=== PATIENT | female | born 1980 | race Caucasian/White ===

== ENCOUNTER 2018-06-14 23:06 | Emergency (ER) | payer OTHER, SELFPAY ==
[2018-06-14 23:07] VITALS: BP 117/75; PULSE 94; RESP 18; TEMP 36.9; O2SAT 100; BMI 22.2
--- NOTE | 2018-06-14 23:12 | ED.RN ---
NO OLD EKGS IN MUSE.
--- NOTE | 2018-06-14 23:16 | RAD_ITS ---
STUDY: X-RAY CHEST REASON FOR EXAM: Female, 37 years old. Chest pain TECHNIQUE: Single frontal view of the chest. COMPARISON: None. FINDINGS: Lungs are hyperaerated. The lungs are clear and expanded. There is no demonstrated pleural abnormality. Normal size heart. Normal mediastinum and coral. Normal visualized pulmonary arteries. Normal visualized aortic arch and descending thoracic aorta. Normal visualized thoracic spine. Normal visualized ribs, clavicles, and shoulders. There is no demonstrated abnormality of the visualized soft tissue structures of the upper abdomen. RAD/Chest 1 View (Portable) IMPRESSION: Small airways disease. No acute disease. Electronically Signed: Vel Mathis MD at 23:32 EDT , Service support ,
--- NOTE | 2018-06-14 23:16 | EKG12_ITS ---
Test Reason : CP Blood Pressure : / mmHG Vent. Rate : 075 BPM Atrial Rate : 075 BPM P-R Int : 150 ms QRS Dur : 084 ms QT Int : 396 ms P-R-T Axes : 055 076 032 degrees QTc Int : 442 ms Normal sinus rhythm Normal ECG Confirmed by LA BAPTISTE, ROD ([id number]), manuscript editor BLESSING AYALA ([id number]) on 06/16/2018 1:32:17 PM Referred By: TEZ Confirmed By:ROD TOVAR MD
--- NOTE | 2018-06-14 23:17 | ED.VISSUMM ---
- ER Visit Summary Date of Service: 06/14/18 Chief Complaint: Chest pain History of Present Illness: The patient is a 37 F presenting with chest pain. She states this started around 9 PM. Pain is substernal and goes through to her back. She states currently 6 out of 10, at its worst it was 10 out of 10. She states the pain is associated with nausea, vomiting, shortness of breath. She has had a history of heartburn in the past and tried Tums at home which did not help. She denies CAD risk factors. She denies PE/DVT risk factors. She is not a smoker. Physical Examination: Vitals are stable. Patient is afebrile. Alert no acute distress. HEENT exam is unremarkable. Neck is supple. Lungs are clear and equal bilaterally. Heart is regular rate and rhythm. Abdomen is soft nontender nondistended. Extremities are unremarkable. Skin is warm and dry. No focal neurologic deficit. Remainder of exam is unremarkable. Emergency Department Course and Treatment: Patient was given aspirin, morphine, Zofran. EKG is sinus rate is 75 with no acute ischemic changes. Chest x-ray shows no acute process. CBC, chemistries unremarkable. Troponin is negative. On reevaluation, patient is resting comfortably and is pain-free. Repeat troponin is negative. CTA chest shows no definitive evidence of PE or dissection. Patient is advised to follow up with her primary care physician, Dr Banegas. Advised to return to the ED for any worsening complaints. Disposition: Discharge home Impression: Chest pain This note was generated with [employer] dictation software. It may contain incorrect words, spelling, and punctuation that were not noted in review of the chart prior to signing ED Disposition - Plan for ED Patient: Chief Complaint: Chest Pain Referrals: Sole Banegas DO [Primary Care Provider] -
[2018-06-14 23:31] LABS: Absolute Neutrophil Count 4.2 X10^3/uL (2.0-7.7); Basophil# 0.01 X10^3/uL; Basophil% 0.2 % (0-1); Eosinophil# 0.06 X10^3/uL; Hematocrit 38.2 % (37-47); Hemoglobin 12.5 g/dl (12.0-15.0); Lymphocyte % 26.9 % (19-41); Mean Corp Hgb Conc 32.7 g/gl (32-36); Mean Corpuscular Hgb 31.8 pg (27.0-32.0); Mean Corpuscular Volume 97.2 fL (81-99); Mean Platelet Vol. 9.5 fl (6.2-12.0); Monocyte# 0.37 X10^3/uL; Monocyte% 5.9 % (0-10); Neutrophil # 4.16 X10^3/uL (2.7-7.7); Neutrophil % 65.8 % (47-70); Platelet Count 247 K/mm3 (150-450); RBC Distribution Width CV 12.6 % (11.6-14.6); RBC Distribution Width SD 43.9 fl (35.1-43.9); Red Blood Count 3.93 M/mm3 (4.2-5.4); White Blood Count 6.3 K/mm3 (4.4-11.0)
[2018-06-14] MEDS: Aspirin 81 MG TAB.CHEW 324 MG PO (23:38)
[2018-06-14] MEDS: Morphine 4 MG/ML Syringe IV (23:39)
[2018-06-14] MEDS: Ondansetron 4 MG/2 ML Vial IV (23:39)
[2018-06-14 23:40] LABS: POSITIVE COUNT NO; POSITIVE DIFFERENTIAL NO; POSITIVE MORPHOLOGY NO
[2018-06-14 23:45] VITALS: PULSE 81; RESP 12; O2SAT 100
[2018-06-14 23:53] LABS: Anion Gap 5 (5-15); BUN 15 mg/dL (7-18); BUN/Creat Ratio 22.4 RATIO (10-20); Calcium,Total 9.2 mg/dL (8.5-10.1); Chloride 104 mmol/L (98-107); Creatinine, Serum 0.67 mg/dL (0.55-1.02); EST Glomerular Filtration Rate 104 mL/min (>60); Est Glom Filt Rate - Afr Amer 125 mL/min (>60); Estimated Creatinine Clearance 105.53 ml/min; Glucose 115 mg/dL (74-106); Potassium 3.5 mmol/L (3.5-5.1); Sodium Level 139 mmol/L (136-145)
--- NOTE | 2018-06-15 01:28 | CT_ITS ---
STUDY: CTA CHEST REASON FOR EXAM: Female, 37 years old. Chest pain with radiation to the back. RADIATION DOSAGE (If Supplied By Facility): CTDIvol = ( 4.61 ) mGy, DLP = ( 186.31 ) mGycm TECHNIQUE: The examination was performed with the intravenous administration of 75ML ml of Isovue 370 contrast material. Post-processing of the angiographic images was performed, with multiplanar reformation and 3D reconstruction. Individualized dose optimization techniques were used for this CT. COMPARISON: None. FINDINGS: Evaluation of the pulmonary arterial vasculature is limited due to timing of the contrast bolus. There is no definitive central pulmonary embolism. Segmental and subsegmental branches are limited in their evaluation due to admixture of contrast. Thoracic aorta demonstrates no aneurysmal dilatation or dissection. Normal heart and pericardium. Normal mediastinum. Normal hilar regions. Normal visualized trachea and bronchi. The lungs are well expanded. No confluent airspace infiltrate. No pleural effusion or pneumothorax. Normal chest wall structures. Normal osseous structures. Normal visualized upper abdomen. CT/CTA Chest W/WO Contrast IMPRESSION: 1. No definitive evidence of acute pulmonary embolism with evaluation being limited due to timing of the contrast bolus. Electronically Signed: Darren Del Rosario MD at 3:06 EDT Tel , Service support ,
[2018-06-15 01:36] VITALS: BP 106/69; PULSE 75; RESP 16; O2SAT 98
--- NOTE | 2018-06-15 03:09 | ED.DEP ---
ED Disposition - Plan for ED Patient: Chief Complaint: Chest Pain Instructions: ED Chest Pain Atypical Unkn Cause Referrals: Sole Banegas DO [Primary Care Provider] -
[2018-06-15 03:27] VITALS: BP 106/78; PULSE 66; RESP 18; O2SAT 97
== END 2018-06-15 03:28 | disposition home or self-care (01) ==
PROVIDERS: Emergency Provider Emergency Medicine; Family Provider Internal Medicine; PCP Internal Medicine
DX: R07.9 Chest pain, unspecified (principal); R11.2 Nausea with vomiting, unspecified; R06.02 Shortness of breath
CPT/HCPCS: 71045; 71275; 80048; 84484; 85025; 93005; 96374; 96375; 99284; Q9967; A4216; J2405

== ENCOUNTER → 2018-06-23 08:20 | Outpatient (CLI) | payer OTHER, SELFPAY ==
--- NOTE | 2018-06-23 08:24 | US_ITS ---
STUDY: ABDOMINAL ULTRASOUND - RIGHT UPPER QUADRANT REASON FOR VISIT: Female, 37 years old. Right upper quadrant tenderness TECHNIQUE: Ultrasound evaluation of the right upper quadrant was performed with real-time and static caraballo-scale imaging. TECHNICAL QUALITY: Adequate. COMPARISON: None. FINDINGS: Liver: The liver measures 14.4 cm. There is normal echogenicity of the liver. The bile ducts are within normal limits. There is hepatic color flow. The direction of portal flow is hepatopetal. There is no demonstrated mass lesion. Gallbladder: Normal distended gallbladder. The gallbladder wall measures 2.4 mm. There is a positive sonographic Liang's sign. There is no pericholecystic fluid. There are multiple echogenic structures within the gallbladder, consistent with multiple gallstones. Common Bile Duct (C.B.D.): The common bile duct measures 2.9 mm. Pancreas: Normal size of the head, body and tail of the pancreas. There is normal echogenicity of the pancreas. There is no demonstrated pancreatic mass or cyst. Right Kidney: Normal size of the right kidney. The right kidney measures 11.1 x 4.3 x 3.9 cm. Normal renal cortex. The right cortex measures 1.5 cm. There is no demonstrated renal mass or cyst. There is no right hydronephrosis. US/Gallbladder IMPRESSION: Cholelithiasis. A positive Liang's sign was elicited as per cable television technician. There is no pericholecystic fluid or gallbladder wall thickening. Electronically Signed: Mundo Ngo MD at 20:08 EDT , Service support ,
== END ==
PROVIDERS: Family Provider Internal Medicine; PCP Internal Medicine; Visit Provider Internal Medicine
DX: R10.11 Right upper quadrant pain (principal)
CPT/HCPCS: 76705

== ENCOUNTER 2018-08-15 09:45 | Day surgery (SDC) | payer OTHER, SELFPAY ==
[2018-08-15] VITALS (7 sets, daily range): BP systolic 102–112; BP diastolic 65–89; PULSE 56–96; RESP 16–28; TEMP 36.4–37.5; O2SAT 98–100; BMI 22.7
--- NOTE | 2018-08-15 | GALL_PTH ---
PATIENT: YURI LOVE LOC: [facility] [place] U#:[id number] AGE/SX: 37/F ROOM: RE08/15/[address]: Dr. Gaston Desai MD : 1980 BED: DIS: 08/15/2018 SPEC #: [id number] RECD: 08/15/18 15:06 STATUS: SHANE MANUELA #: [id number] SAJI: 08/15/18 00:[address]: Gaston Desai DEPT: SURGICAL PATHOLOGY RECD BY: Darren Parr ENTERED: 08/15/18 15:06 SP TYPE: AKASH CONNOLLY DR: Dr. Sole Banegas DO Tissues: Gallbladder, NOS Procedures: Surgery Specimen Level III HEADER OPERATION: Laparoscopic cholecystectomy PRE-OP DIAGNOSIS: Acute cholecystitis without obstruction; cholelithiasis, right upper quadrant pain TISSUE SUBMITTED: Gallbladder MICROSCOPIC DIAGNOSIS Gallbladder, cholecystectomy: Chronic cholecystitis and cholelithiasis. AM:arley 08/16/18 MICROSCOPIC DESCRIPTION Slides are reviewed. GROSS DESCRIPTION Received is one container labeled with the patient's name and designated gallbladder. The specimen consists of a gallbladder measuring 10 cm in length and up to 4.5 cm in diameter. The external surface is pink-trejo, smooth and glistening for the most part. Focally it is granular, hemorrhagic and contains cautery artifact. The gallbladder contains green-yellow mucoid bile and multiple irregular mulberry, yellowish-green stones measuring in aggregate 2 x 1.5 x 0.5 cm and 0.3 to 0.6 cm in greatest dimension. The mucosa is bile-stained and without any mass lesions. The gallbladder wall measures up to 0.4 cm in thickness. Close to the cystic duct area an ovoid nodule is noted, possible lymph node measuring 1.3 cm in greatest dimension. Legal Service Specialist sections from the gallbladder wall, cystic duct and entire possible lymph node are submitted in one cassette. / SJ:arley 08/15/18 TC:3 CPT: 57049
--- NOTE | 2018-08-15 10:02 | EKG12_ITS ---
Test Reason : PRE-OP Blood Pressure : / mmHG Vent. Rate : 068 BPM Atrial Rate : 068 BPM P-R Int : 146 ms QRS Dur : 084 ms QT Int : 396 ms P-R-T Axes : 048 071 021 degrees QTc Int : 421 ms Sinus rhythm with marked sinus arrhythmia Otherwise normal ECG When compared with ECG of 14-JUN-2018 23:16, No significant change was found Confirmed by TAMIKA BAPTISTE, DIEGO ([id number]), editor farm journal BLESSING AYAAL ([id number]) on 08/18/2018 3:12:09 PM Referred By: Gaston Desai Confirmed By:DIEGO LUNDBERG MD
[2018-08-15 10:11] LABS: Internal QC Validated? YES +Cl - CLEAR BKGD; Pregnancy, Urine Negative Negative
[2018-08-15] MEDS: Cefazolin 2 GM in 0.9% Normal Saline 100 ML IV (12:25)
--- NOTE | 2018-08-15 12:37 | DCINST_ITS ---
Discharge Diet: Light diet - advance as tolerated Discharge Activity: May Not Drive - for 2-3 days or while taking narcotic pain medications., - - Do not drive, work heavy equipment or sign legal documents for 24 hours. May shower in (days): 1 - with the bandage in place. Additional Activity Instructions:: Pain medication may cause nausea. You should typically eat light foods as you take your pain medications. Pain medication may also cause constipation. If this is a problem for you, please discuss with your doctor. Call your doctor if your incision/area has: Continuous Slow Oozing, Sudden Increased Bleeding, Increased Pain/ Swelling, Increased Redness, Foul Smelling Discharge Call your doctor if you observe: Fever of 101 or Higher Suture Line Care: Avoid Pulling/Pushing, Avoid Pinching/Bending Additional Dressing/Incision Instructions:: Leave operative bandaids on for 2 days. When you remove dressing, leave Steri-Strips on until your follow-up appointment, or until the Steri-Strips fall off on their own. Allergies/Adverse Reactions: Allergies No Known Allergies Allergy (Verified 08/01/18 13:05) Medications to take at Discharge desogestrel-e.estradiol 0.15 mg-0.02 mg(21)/e.estrad 0.01 mg(5) tablet 1 tab PO DAILY 07/17/18 Multivitamins,Therapeutic [Multivitamin] 1 tablet PO DAILY 08/01/18 Omeprazole Magnesium [Prilosec Otc] 20 mg PO DAILY 08/01/18 Oxycodone HCl/Acetaminophen [Percocet 5/325] 1 - 2 tab PO Q4H PRN PRN 5 Days #30 tab 08/15/18 The following prescriptions were given: Oxycodone HCl/Acetaminophen [Percocet 5/325] 1 - 2 tab PO Q4H PRN PRN 5 Days #30 tab PRN Reason: Pain Primary Care Physician: Sole Banegas DO [Primary Care Provider] - Test Results: Test results from this visit will be discussed in further detail at your follow- up appointment, if applicable. Please Follow Up With: Gaston Desai MD - Please call [phone] to schedule an appointment. When: 7 days after your surgery.
--- NOTE | 2018-08-15 12:37 | PCM.OPRPT ---
Problem List (1) Calculus of gallbladder with acute cholecystitis without obstruction Status: Acute (2) Right upper quadrant pain Status: Acute Report of Operation Date of Procedure: 08/15/18 Pre-Operative Diagnosis: K80.00 calculus of the gallbladder with acute cholecystitis without obstruction. r10.11 right upper quadrant abdominal pain Post-Operative Diagnosis: Same Surgery/Procedure Performed:: Laparoscopic cholecystectomy Type of Anesthesia:: General Anesthesiologist: Ernesto Gonzalez Estimated Blood Loss (mL): <25CC Fluids Replaced: 1 L LR Description of Procedure: Patient was brought in the operating room placed in the supine position. Under excellent general endotracheal intubation the abdomen was sterilely prepped and draped in the usual fashion. Local was injected infraumbilically and dissection was carried down to the fascia. The fascia was grasped with a [place]. Varies needle was placed inside the abdomen. The abdomen was insufflated to 15 torr. A 10/12 trocar was placed without difficulty. Patient was placed in the head up and rotated to the left position. A subxiphoid #5 trocar was placed, inferior to this another #5 trocar was placed, laterally a #5 trocar was placed. All of these under direct visualization without injury to underlying structures. Fundus of the gallbladder was grasped retracted in the cephalad direction. The patient was placed in the head up and rotated to the left position. Infundibulum was grasped and retracted laterally. I dissected out the cystic duct. Hemoclips were placed proximally and distally the duct was ligated. The cystic artery was identified hemoclips were placed proximally and distally and it was ligated. I deliver the gallbladder from the gallbladder bed with use of electrocautery. I placed the specimen in the specimen bag and delivered through the umbilical port without difficulty. I used electrocautery on the liver bed for good hemostasis. I removed the trochars under direct visualization good hemostasis was noted. I closed the fascia the umbilical port with a [id number] stitch of 0 Vicryl. Skin incisions were closed with subcuticular stitches of 4-0 Monocryl. Steri-Strips were applied. Sterile dressings were applied. The patient tolerated the procedure well. - Admit VTE Documentation VTE Present on Admission: No VTE Mechan Device Prophylaxis: SCD's VTE Pharm Prophylaxis ordered?: No Reason prophylaxis not ordered:: Treatment Not Indicated
[2018-08-15] MEDS: Bupivacaine Mpf 0.5% 30 ML VIAL (13:12)
== END 2018-08-15 16:42 | disposition home or self-care (01) ==
LOC: SDC 09:52 → AC 09:52
PROVIDERS: Family Provider Internal Medicine; PCP Internal Medicine; Visit Provider Surgery
PROC: (CPT 47610; principal; 2018-08-15 12:00)
DX: K80.12 Calculus of gallbladder with acute and chronic cholecystitis without obstruction (principal); K21.9 Gastro-esophageal reflux disease without esophagitis; Z79.899 Other long term (current) drug therapy; Z87.442 Personal history of urinary calculi
CPT/HCPCS: 00790; 47562; 81025; 88304; 93005; J7120; J2405

== ENCOUNTER → 2018-10-04 16:07 | Outpatient (CLI) | payer OTHER, SELFPAY ==
[2018-10-11 19:30] LABS: HPV APTIMA, High Risk Positive (Negative)
== END ==
PROVIDERS: Visit Provider Obstetrics & Gynecology
DX: Z12.4 Encounter for screening for malignant neoplasm of cervix (principal)
CPT/HCPCS: 88175; G0145

== ENCOUNTER → 2018-10-17 12:45 | Outpatient (CLI) | payer OTHER, SELFPAY ==
--- NOTE | 2018-10-17 12:48 | BI_ITS ---
MAMMOGRAPHY - BILATERAL SCREENING REASON FOR EXAM: Female, 38 years old. Routine annual screening examination. PERTINENT HISTORY: Non-contributory. TECHNIQUE: Digital bilateral breast deborah (3D mammographic acquisition) in the CC and MLO projections. 2-D mediolateral oblique (MLO) and craniocaudad (CC) views of both breasts were obtained. CAD: Full Field Digital Mammography with Computer Added Detection was performed. COMPARISON: None. Baseline examination. FINDINGS: Breast Composition: The breasts are extremely dense, which lowers the sensitivity of mammography. There are no dominant masses or suspicious calcifications. No other significant abnormalities are identified. BI/SCREENING MAMM (CAD), BILAT IMPRESSION: Negative screening mammogram. Yearly followup mammogram recommended. (A) ASSESSMENT CATEGORY: BIRADS Category 1: Negative. A letter regarding these results will be sent to the patient by the facility within 30 days. Approximately 10% of breast cancers are not detected by mammography. A normal mammogram should not delay biopsy of a clinically suspicious abnormality. [id number] Electronically Signed: Caleb Ramirez MD at 14:24 EST Tel [phone], Service support ,
--- OUTSIDE RECORDS SUMMARY | 2018-11-29 05:59 | XMS RPT_ITS ---
:1980 Author Organization OHIP Care Team Providers Name Role Phone Jeannette Marvin Attending Unavailable Makenzie, Sole Primary Care Unavailable Makenzie, Sole Attending Unavailable Makenzie, Sole Primary Care Unavailable [place], Gaston Attending Unavailable Makenzie, Soel Referring Unavailable Makenzie, Sole Primary Care Unavailable [place], Gaston Attending Unavailable Makenzie, Sole Primary Care Unavailable [place], Gaston Referring Unavailable Lizzeth Cruz PA-C Attending Unavailable Makenzie, Sole Referring Unavailable Giselle, Gaston Attending Unavailable Adrian Gannon Attending Unavailable Giselle, Gaston Referring Unavailable WeemanJesus Attending Unavailable Weeman, Jesus Attending Unavailable PROBLEMS PROBLEMS DATE TYPE CONDITION / CODE ATTENDING STATUS SOURCE 10/04/2018 Unknown Z12.4 - Encounter Jesus Sosa Active [place] for screening for Pending Sale To [facility] malignant neoplasm [facility] / Repository Z12.4(ICD-10) 08/31/2018 Unknown K80.00 - Calculus of Gaston Desai Active [place] gallbladder with Pending Sale To [facility] acute cholecystitis [facility] without obstruction Repository / K80.00(ICD-10) 08/31/2018 Unknown R10.11 - Right upper Gaston Desai Active [place] quadrant pain / Community R10.11(ICD-10) Hospital Repository 09/15/2018 Unknown Z01.810 - Encounter Adrian Gannon Active [place] for preprocedural Pending Sale To [facility] examination / Repository Z01.810(ICD-10) PROCEDURES PROCEDURES No Procedure Records FoundRESULTS RESULTS SCREENING MAMM (CAD), Observed: 10/17/2018 Status: F Source: [place] BIL[place] 12:49 PM [facility] HOSPITAL REPOSITORY [facility] Imaging Services [address] [place] [address] SCREENING MAMM (CAD), BILAT MR#: [id number] Acct: [id number] Name: LOVEGAURI L Rep #: [id number] : 1980 F 38 From: Caleb Ramirez MD PCP: Care Physician, No Primary Status: REG CLI Study: SCREENING MAMM (CAD), BILAT Date of Exam: 10/17/18 Exam# [id number] Ordering Dr: Jesus Sosa MD MAMMOGRAPHY - BILATERAL SCREENING REASON FOR EXAM: Female, 38 years old. Routine annual screening examination. PERTINENT HISTORY: Non-contributory. TECHNIQUE: Digital bilateral breast deborah (3D mammographic acquisition) in the CC and MLO projections. 2-D mediolateral oblique (MLO) and craniocaudad (CC) views of both breasts were obtained. CAD: Full Field Digital Mammography with Computer Added Detection was performed. COMPARISON: None. Baseline examination. FINDINGS: Breast Composition: The breasts are extremely dense, which lowers the sensitivity of mammography. There are no dominant masses or suspicious calcifications. No other significant abnormalities are identified. BI/SCREENING MAMM (CAD), BILAT IMPRESSION: Negative screening mammogram. Yearly followup mammogram recommended. (A) ASSESSMENT CATEGORY: BIRADS Category 1: Negative. A letter regarding these results will be sent to the patient by the facility within 30 days. Approximately 10% of breast cancers are not detected by mammography. A normal mammogram should not delay biopsy of a clinically suspicious abnormality. [id number] Electronically Signed: Caleb Ramirez MD at 14:24 EST Tel [phone], Service support , CC: No Primary Care Physician; Jesus Sosa MD Thread Separator: Signed PAP IG HPV HR Collected: 10/04/2018 Status: F Source: [place] 3:00 PM [facility] REPOSITORY Order Comment: CYTOLOGY INFORMATION: - CLINICAL INFORMATION: - DATE LMP/MENOPAUSE: 09/25/18 LMP - COLLECTION VIAL: Thin Prep Vial - BIZTALK ARCHITECT SOURCE: CERVICAL/ENDOCERVICAL - COLLECTION TECHNIQUE: BRUSH/SPATULA Specimen Comment: [id number] Specimen Comment: Source.............Cervix;Endocervix Specimen Comment: LMP / Prev Treat...[id number]=[id number] Specimen Comment: No. of containers..01 ThinPrep Vial TYPE CODE TESTS RESULT OUT OF REFERENCE UNITS RANGE LAB L7400.0800 . High DIAGN Comment Result Comment: EPITHELIAL CELL ABNORMALITY. ATYPICAL SQUAMOUS CELLS OF UNDETERMINED SIGNIFICANCE. LAB L7400.0900 . Normal ADEQ Comment Result Comment: Satisfactory for evaluation. Endocervical and/or squamous metaplastic cells (endocervical component) are present. LAB L7400.1400 . Normal PERFORM Comment Result Comment: Cesilia Mccloud, Control Technician (ASCP) LAB L7400.1700 . Normal SIGN Comment Result Comment: Nam Brown MD (Charles), Pathologist LAB L7400.1720 . Normal Path prov. Comment ICD9 Result Comment: R87.610 LAB L7400.2575 . Normal TEST METHOD Comment Result Comment: This liquid based ThinPrep(R) pap test was screened with the use of an image guided system. LAB L7400.2600 . Normal . COMM LAB L7400.2700 . Normal PAPSMR Comment Result Comment: The Pap smear is a screening test designed to aid in the detection of premalignant and malignant conditions of the uterine cervix. It is not a diagnostic procedure and should not be used as the sole means of detecting cervical cancer. Both false-positive and false-negative reports do occur. LAB L7400.2760 Negative High HPV APTIMA, HR Positive Result Comment: This test detects fourteen high-risk HPV types (16/18/31/33/35/39/45/ 51/52/56/58/59/66/68) without differentiation. Performed at: [address] [place] [id number] Advertising Supervisor: Fatimah Glass MD, Phone: [phone] Performed at: [address] [id number] Advertising Supervisor: Crystal Llanes MD, Phone: [phone] Performed at: [address] [id number] Advertising Supervisor: Crystal Llanes MD, Phone: [phone] Performed By: #### L7400.0377 #### [facility] (refer to report for specific site) refer to report for address and phone number SURGERY VISIT REPORT Observed: 08/22/2018 Status: F Source: [place] 12:20 PM [facility] REPOSITORY [facility] 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 Dr. Desai performed a laparoscopic cholecystectomy on 08/15/18. Patient tolerated the procedure well. Pathology demonstrated chronic cholecystitis and cholelithiasis. Patient notes umbilical incisional discomfort. Patient notes nausea in the mornings however this goes away after eating. Patient denies vomiting, fever. She notes bowel habits have returned to normal. She denies taking any pain medication. Objective Details: Abdomen- soft, slightly distended, slightly tender. Incisions c/d/i. No erythema or infection noted. Minimal ecchymosis. Assessment AND Plan Problems 1. Calculus of gallbladder with acute cholecystitis without obstruction K80.00 Plan - Follow-up as needed - May return to work tomorrow - No lifting greater than 35 pounds for 2 weeks Coding Level of Care Code Global Post Op Diagnoses Calculus of gallbladder with acute cholecystitis without obstruction K80.00 08/22/18 1220 <Electronically signed by Lizzeth Cruz PA-C> Date Lizzeth Cruz PA-C Cosigner Signature: Date (if applicable) CC: Sole Banegas DO OPERATIVE REPORT Observed: 08/22/2018 Status: F Source: [place] 11:21 AM [facility] REPOSITORY [facility] Medical Records Department [address] [facility] [place] [address] Operative Report 08/15/18 1237 MR#: [id number] Acct: [id number] Name: LOVEGAURI Kai Rep #: [id number] : 1980 37 From: Gaston Dseai MD PCP: Sole Banegas DO Status: [facility] [place] [facility] Problem List (1) Calculus of gallbladder with acute cholecystitis without obstruction Status: Acute (2) Right upper quadrant pain Status: Acute Report of Operation Date of Procedure: 08/15/18 Pre-Operative Diagnosis: K80.00 calculus of the gallbladder with acute cholecystitis without obstruction. r10.11 right upper quadrant abdominal pain Post-Operative Diagnosis: Same Surgery/Procedure Performed:: Laparoscopic cholecystectomy Type of Anesthesia:: General Anesthesiologist: Ernesto Gonzalez Estimated Blood Loss (mL): <25CC Fluids Replaced: 1 L LR Description of Procedure: Patient was brought in the operating room placed in the supine position. Under excellent general endotracheal intubation the abdomen was sterilely prepped and draped in the usual fashion. Local was injected infraumbilically and dissection was carried down to the fascia. The fascia was grasped with a [place]. Varies needle was placed inside the abdomen. The abdomen was insufflated to 15 torr. A 10/12 trocar was placed without difficulty. Patient was placed in the head up and rotated to the left position. A subxiphoid #5 trocar was placed, inferior to this another #5 trocar was placed, laterally a #5 trocar was placed. All of these under direct visualization without injury to underlying structures. Fundus of the gallbladder was grasped retracted in the cephalad direction. The patient was placed in the head up and rotated to the left position. Infundibulum was grasped and retracted laterally. I dissected out the cystic duct. Hemoclips were placed proximally and distally the duct was ligated. The cystic artery was identified hemoclips were placed proximally and distally and it was ligated. I deliver the gallbladder from the gallbladder bed with use of electrocautery. I placed the specimen in the specimen bag and delivered through the umbilical port without difficulty. I used electrocautery on the liver bed for good hemostasis. I removed the trochars under direct visualization good hemostasis was noted. I closed the fascia the umbilical port with a [id number] stitch of 0 Vicryl. Skin incisions were closed with subcuticular stitches of 4-0 Monocryl. Steri-Strips were applied. Sterile dressings were applied. The patient tolerated the procedure well. - Admit VTE Documentation VTE Present on Admission: No VTE Mechan Device Prophylaxis: SCD's VTE Pharm Prophylaxis ordered?: No Reason prophylaxis not ordered:: Treatment Not Indicated 08/22/18 1121 <Electronically signed by Gaston Desai MD> Date Gaston Desai MD CC: Gaston Desai MD; Sole Banegas DO Signed 12 LEAD ELECTROCARDIOGRAM Observed: 08/18/2018 Status: F Source: [place] 3:12 PM [facility] REPOSITORY [facility] Cardiovascular Services [address] [place] [address] 12 Lead EKG 08/15/18 1013 MR#: [id number] Acct: [id number] Name: GAURI LOVE Rep #: [id number] : 1980 37 From: Adrian Gannon MD Attending Dr: Gaston Desai MD Status: [facility] Ordering Dr: Gaston Desai MD Date: 08/15/18 [place] [facility] Sex: F C Admitted: Test Reason : PRE-OP Blood Pressure : / mmHG Vent. Rate : 068 BPM Atrial Rate : 068 BPM P-R Int : 146 ms QRS Dur : 084 ms QT Int : 396 ms P-R-T Axes : 048 071 021 degrees QTc Int : 421 ms Sinus rhythm with marked sinus arrhythmia Otherwise normal ECG When compared with ECG of 14-JUN-2018 23:16, No significant change was found Confirmed by ADRIAN GANNON MD ([id number]), publishing editor BLESSING AYALA ([id number]) on 08/18/2018 3:12:09 PM Referred By: Gaston Desai Confirmed By:ADRIAN GANNON MD 08/18/18 151 Date Adrian Gannon MD CC: Gaston Desai MD; Sole Banegas DO Signed DISCHARGE INSTRUCTION Observed: 08/15/2018 Status: F Source: [place] 12:37 PM [facility] REPOSITORY [facility] Medical Records Department [address] [place] [address] Instructions for Home/Discharge Instructions 08/15/18 1236 MR#: [id number] Acct: [id number] Name: GAURI LOVE Rep #: [id number] : 1980 37 From: Gaston Desai MD PCP: Sole Banegas DO Status: REG FLC Discharge Diet: Light diet - advance as tolerated Discharge Activity: May Not Drive - for 2-3 days or while taking narcotic pain medications., - - Do not drive, work heavy equipment or sign legal documents for 24 hours. May shower in (days): 1 - with the bandage in place. Additional Activity Instructions:: Pain medication may cause nausea. You should typically eat light foods as you take your pain medications. Pain medication may also cause constipation. If this is a problem for you, please discuss with your doctor. Call your doctor if your incision/area has: Continuous Slow Oozing, Sudden Increased Bleeding, Increased Pain/ Swelling, Increased Redness, Foul Smelling Discharge Call your doctor if you observe: Fever of 101 or Higher Suture Line Care: Avoid Pulling/Pushing, Avoid Pinching/Bending Additional Dressing/Incision Instructions:: Leave operative bandaids on for 2 days. When you remove dressing, leave Steri-Strips on until your follow-up appointment, or until the Steri-Strips fall off on their own. Allergies/Adverse Reactions: Allergies No Known Allergies Allergy (Verified 08/01/18 13:05) Medications to take at Discharge desogestrel-e.estradiol 0.15 mg-0.02 mg(21)/e.estrad 0.01 mg(5) tablet 1 tab PO DAILY 07/17/18 Multivitamins,Therapeutic [Multivitamin] 1 tablet PO DAILY 08/01/18 Omeprazole Magnesium [Prilosec Otc] 20 mg PO DAILY 08/01/18 Oxycodone HCl/Acetaminophen [Percocet 5/325] 1 - 2 tab PO Q4H PRN PRN 5 Days #30 tab 08/15/18 The following prescriptions were given: Oxycodone HCl/Acetaminophen [Percocet 5/325] 1 - 2 tab PO Q4H PRN PRN 5 Days #30 tab PRN Reason: Pain Primary Care Physician: Sole Banegas DO [Primary Care Provider] - Test Results: Test results from this visit will be discussed in further detail at your follow-up appointment, if applicable. Please Follow Up With: Gaston Desai MD - Please call [phone] to schedule an appointment. When: 7 days after your surgery. 08/15/18 1237 <Electronically signed by Gaston Desai MD> Date Gaston Desai MD CC: Sole Banegas DO ,URINE Collected: 08/15/2018 Status: F Source: [place] 10:00 AM [facility] REPOSITORY TYPE CODE TESTS RESULT OUT OF REFERENCE UNITS RANGE LAB L400.8000 Negative Normal HCGUQUAL Negative Result Comment: Very dilute urine specimens, as indicated by a low specific gravity, may not contain escrow representative levels of hCG. If is still suspected, a first morning urine specimen should be collected 48 hours later and tested. Performed By: #### L400.7600 #### [facility] [address] [place], [address] GALLBLADDER Observed: 08/15/2018 Status: F Source: [place] 12:00 AM [facility] REPOSITORY Patient: GAURI LOVE : 1980 (37/F) Acct Num: [id number] Phys: Giselle BAPTISTE,Gaston Unit Num: [id number] [place] [facility] Specimen: [id number] Received: 08/15/18 - 1506 Spec Type: GALLBLADDE TISSUES 1 TISSUES: Gallbladder, NOS GROSS DESCRIPTION Received is one container labeled with the patient's name and designated gallbladder. The specimen consists of a gallbladder measuring 10 cm in length and up to 4.5 cm in diameter. The external surface is pink- trejo, smooth and glistening for the most part. Focally it is granular, hemorrhagic and contains cautery artifact. The gallbladder contains green-yellow mucoid bile and multiple irregular mulberry, yellowish-green stones measuring in aggregate 2 x 1.5 x 0.5 cm and 0.3 to 0.6 cm in greatest dimension. The mucosa is bile- stained and without any mass lesions. The gallbladder wall measures up to 0.4 cm in thickness. Close to the cystic duct area an ovoid nodule is noted, possible lymph node measuring 1.3 cm in greatest dimension. Power Line Lineman sections from the gallbladder wall, cystic duct and entire possible lymph node are submitted in one cassette. / SJ:arley 08/15/18 TC:3 CPT: 32726 HEADER OPERATION: Laparoscopic cholecystectomy PRE-OP DIAGNOSIS: Acute cholecystitis without obstruction; cholelithiasis, right upper quadrant pain TISSUE SUBMITTED: Gallbladder MICROSCOPIC DESCRIPTION Slides are reviewed. MICROSCOPIC DIAGNOSIS Gallbladder, cholecystectomy: Chronic cholecystitis and cholelithiasis. AM:arley 08/16/18 Signed Johnathon Menendez 08/16/18 <signature on file> Performed By: #### PGALL #### [facility] [address] [place], [address] SURGERY VISIT REPORT Observed: 07/17/2018 Status: F Source: [place] 7:46 AM [facility] REPOSITORY [facility] [address] [place] [address] OFFICE VISIT Date of Service: 07/17/18 MR#: [id number] Acct: [id number] Name: GAURI LOVE Rep #: [id number] : 1980 Provider: Gaston Desai MD Age/Sex: 37/F Location: [facility] Status: Signed Intake Vital Signs07/17/18 Height 5 ft 6 in 07/17/18 Weight: 130 lb Intake Visit Reasons: R Upper Quadrant Pain/[facility] 06/23 Electrical Tester Battery Required: No Is patient in pain?: No Allergies No Known Allergies Allergy (Verified 07/17/18 07:36) Medications desogestrel-e.estradiol 0.15 mg-0.02 mg(21)/e.estrad 0.01 mg(5) tablet 1 tab PO DAILY 07/17/18 [History Confirmed 07/17/18] [facility] Medical History Abdominal pain (Acute) Acid reflux (Acute) Cholelithiasis (Acute) Diarrhea (Acute) Nausea (Acute) Surgical History History of tubal ligation (Acute) history corrective eye surgery (Acute) Social History Smoking Status: Never smoker alcohol intake: never substance use type: does not use HPI HPI HPI: GAURI LOVE, is a 37 F who presents to the office today for evaluation for cholelithiasis. Patient states that the end of May she was experiencing some increased heartburn then went into her back and into the chest area. She went to the emergency department and had a cardiac workup which was negative and subsequently followed up with her primary care physician and a gallbladder ultrasound was obtained. This showed a normally distended gallbladder. The gallbladder wall measured 2.4 mm. There was a positive sonographic Liang sign. There was no pericholecystic fluid. There were multiple echogenic structures within the gallbladder consistent with multiple gallstones. The common bile duct measured 2.9 mm in size. She is to remain on a low-fat diet she has been using minutes to help with her reflux which she is unsure had been working appropriately. She presents to my office today for surgical treatment of symptomatic cholelithiasis. ROS General General: Yes weight change and fatigue; no appetite, colon cancer, breast cancer or weakness HEENT HEENT: Yes eye surgery; no difficulty swallowing, eye injury, swollen glands or hoarseness Endo Endocrine: No thyroid disease, diabetes mellitus, thyroid cancer, Hair loss, heat intolerance or cold intolerance Skin Skin: No rash or changing moles Breast Breast: No left breast lump, right breast lump, nipple discharge, breast pain, abnormal mammogram, abnormal US or breast enlargement Musc Musculoskeletal: No back problems, arthritis, rheumatoid arthritis, gout or joint pain Cardio Cardiovascular: No murmur, pacemaker, heart disease, atrial fibrillation, high blood pressure, heart attack, heart stent, palpitations, shortness of breat with exertion or chest pain Psych Psychiatric: No depression, anxiety or hearing voices Resp Respiratory: No shortness of breath, No sleep apnea, No cough, No COPD, No asthma, No emphysema, No wheezing Gastro Gastrointestinal: Yes abdominal pain, Yes nausea or vomiting, Yes diarrhea, No constipation, No blood in stool, Yes acid reflux, Yes hemorrhoids, No ulcers, Yes gallbladder problem, No black,tarry stools Brooks Hematologic: No blood thinners, No blood disorders, No bleeding, No anemia, No blood clots Neuro Neurologic: No system reviewed and no additional complaints, except as docu, No as per HPI, No abnormal walking, No abnormal hearing, No abnormal movements, No abnormal speech, No behavioral changes, No burning sensations, No confusion, No seizure-like activity, No unsteadiness, No dizziness, No localized weakness, No frequent falls, No headache(s), No lack of coordination, No loss of vision, No memory loss, No numbness, No other visual disturbances, No radiating pain, No restless legs, No sensory deficit, No fainting, No tingling, No tremor(s), No weakness, No other Exam Const General: well developed, no acute distress, well hydrated Orientation: oriented to person, oriented to place, oriented to time [facility] Head: normocephalic, atraumatic Ears: external ears normal Mouth: moist mucous membranes Eyes Sclera: sclerae normal Pupils: normal by confrontation Neck Neck: no lymphadenopathy noted Neck mass: No Thyroid: symmetrical, thyroid normal Chest Chest palpation AND inspection: normal inspection of the chest Breast Palpation: No nipple discharge Resp Effort AND Inspection: normal respiratory effort Auscultation: clear to auscultation bilaterally Percussion: percussion normal Cardio Rate: regular rate Rhythm: regular rhythm Heart Sounds: no murmurs GI Palpation: soft, tender, no masses, no hepatosplenomegaly Auscultation: normal bowel sounds Rectal Exam: other Other: Rectal exam deferred. Extrem General: no clubbing, cyanosis or edema, normal to inspection Assessment AND Plan Problems 1. Calculus of gallbladder with acute cholecystitis without obstruction K80.00 2. Abdominal pain, RUQ R10.11 Plan Reviewed the anatomy with the patient and discussed the procedure: laparoscopic cholecystectomy with possible cholangiograms, possible open. Review risks including but not limited to bleeding, infection, hernia, bile leak, retained gallstones requiring another procedure ERCP- Endoscopic Retrograde Cholangiopancreatography, injury to another organ (bile ducts, common bile duct, small bowel, etc.) and conversion to an open procedure. All questions were answered. Coding Level of Care Code Off vis,new,level 3 Diagnoses Calculus of gallbladder with acute cholecystitis without obstruction K80.00 Cholelithiasis location: gallbladder Cholecystitis acuity: acute Abdominal pain, RUQ R10.11 07/17/18 0746 <Electronically signed by Gaston Desai MD> Date Gaston Desai MD Cosigner Signature: Date (if applicable) CC: Sole Banegas DO GALLBLADDER Observed: 06/23/2018 Status: F Source: [place] 8:25 AM [facility] REPOSITORY [facility] Imaging Services [address] [place] [address] Gallbladder MR#: [id number] Acct: [id number] Name: GAURI LOVE Kai Rep #: [id number] : 1980 F 37 From: Mundo Ngo MD PCP: Sole Banegas DO Status: REG CLI Study: Gallbladder Date of Exam: 06/23/18 Exam# [id number] Ordering Dr: Sole Banegas DO STUDY: ABDOMINAL ULTRASOUND - RIGHT UPPER QUADRANT REASON FOR VISIT: Female, 37 years old. Right upper quadrant tenderness TECHNIQUE: Ultrasound evaluation of the right upper quadrant was performed with real-time and static caraballo-scale imaging. TECHNICAL QUALITY: Adequate. COMPARISON: None. FINDINGS: Liver: The liver measures 14.4 cm. There is normal echogenicity of the liver. The bile ducts are within normal limits. There is hepatic color flow. The direction of portal flow is hepatopetal. There is no demonstrated mass lesion. Gallbladder: Normal distended gallbladder. The gallbladder wall measures 2.4 mm. There is a positive sonographic Liang's sign. There is no pericholecystic fluid. There are multiple echogenic structures within the gallbladder, consistent with multiple gallstones. Common Bile Duct (C.B.D.): The common bile duct measures 2.9 mm. Pancreas: Normal size of the head, body and tail of the pancreas. There is normal echogenicity of the pancreas. There is no demonstrated pancreatic mass or cyst. Right Kidney: Normal size of the right kidney. The right kidney measures 11.1 x 4.3 x 3.9 cm. Normal renal cortex. The right cortex measures 1.5 cm. There is no demonstrated renal mass or cyst. There is no right hydronephrosis. US/Gallbladder IMPRESSION: Cholelithiasis. A positive Liang's sign was elicited as per drafting technician. There is no pericholecystic fluid or gallbladder wall thickening. Electronically Signed: Mundo Ngo MD at 20:08 EDT , Service support , CC: Sole Banegas DO Thread Separator: Signed 12 LEAD ELECTROCARDIOGRAM Observed: 06/16/2018 Status: F Source: [place] 1:32 PM [facility] Cardiovascular Services [address] [place] [address] 12 Lead EKG 06/14/186 MR#: [id number] Acct: [id number] Name: GAURI LOVE Rep #: [id number] : 1980 37 From: Mumtaz Tovar MD Attending Dr: Status: DEP ER Ordering Dr: Jeannette Marvin MD Date: 06/14/18 Location: ED Sex: F C Admitted: Test Reason : CP Blood Pressure : / mmHG Vent. Rate : 075 BPM Atrial Rate : 075 BPM P-R Int : 150 ms QRS Dur : 084 ms QT Int : 396 ms P-R-T Axes : 055 076 032 degrees QTc Int : 442 ms Normal sinus rhythm Normal ECG Confirmed by LA BAPTISTE, MUMTAZ ([id number]), publishing editor BLESSING AYALA ([id number]) on 06/16/2018 1:32:17 PM Referred By: TEZ Confirmed By:MUMTAZ TOVAR MD 06/16/18 1332 Date Mumtaz Tovar MD CC: Jeannette Marvin MD; Sole Banegas DO Signed EMERGENCY DEPARTMENT Observed: 06/15/2018 Status: F Source: [place] SUMMARY 3:20 AM [facility] Medical Records Department [address] [place] [address] Emergency Department Summary 06/14/18 2317 MR#: [id number] Acct: [id number] Name: GAURI LOVE Rep #: [id number] : 1980 37 From: Jeannette Marvin MD PCP: Sole Banegas DO Status: REG ER - ER Visit Summary Date of Service: 06/14/18 Chief Complaint: Chest pain History of Present Illness: The patient is a 37 F presenting with chest pain. She states this started around 9 PM. Pain is substernal and goes through to her back. She states currently 6 out of 10, at its worst it was 10 out of 10. She states the pain is associated with nausea, vomiting, shortness of breath. She has had a history of heartburn in the past and tried Tums at home which did not help. She denies CAD risk factors. She denies PE/DVT risk factors. She is not a smoker. Physical Examination: Vitals are stable. Patient is afebrile. Alert no acute distress. HEENT exam is unremarkable. Neck is supple. Lungs are clear and equal bilaterally. Heart is regular rate and rhythm. Abdomen is soft nontender nondistended. Extremities are unremarkable. Skin is warm and dry. No focal neurologic deficit. Remainder of exam is unremarkable. Emergency Department Course and Treatment: Patient was given aspirin, morphine, Zofran. EKG is sinus rate is 75 with no acute ischemic changes. Chest x- ray shows no acute process. CBC, chemistries unremarkable. Troponin is negative. On reevaluation, patient is resting comfortably and is pain-free. Repeat troponin is negative. CTA chest shows no definitive evidence of PE or dissection. Patient is advised to follow up with her primary care physician, Dr Banegas. Advised to return to the ED for any worsening complaints. Disposition: Discharge home Impression: Chest pain This note was generated with [employer] dictation software. It may contain incorrect words, spelling, and punctuation that were not noted in review of the chart prior to signing ED Disposition - Plan for ED Patient: Chief Complaint: Chest Pain Referrals: Sole Banegas, DO [Primary Care Provider] - What to do if you have Problems For any increased pain, shortness of breath, bleeding, nausea or vomiting, chest pain, or any unexpected problems, contact your Primary Care Provider. Call [facility] ([phone]) or report to the closest Emergency Room. Call 911 if necessary. 06/15/18 0320 <Electronically signed by Jeannette Marvin MD> Date Jeannette Marvin MD Cosigner Signature (If Indicated): Date CC: Sole aBnegas DO DISCHARGE INSTRUCTION Observed: 06/15/2018 Status: F Source: [place] 3:09 AM [facility] REPOSITORY [facility] Medical Records Department [address] [place] [address] Discharge Instruction 06/15/18308 MR#: [id number] Acct: [id number] Name: GAURI LOVE Rep #: [id number] : 1980 37 From: Jeannette Marvin MD PCP: Sole Banegas DO Status: REG ER ED Disposition - Plan for ED Patient: Chief Complaint: Chest Pain Instructions: ED Chest Pain Atypical Unkn Cause Referrals: Sole Banegas, [Primary Care Provider] - What to do if you have Problems For any increased pain, shortness of breath, bleeding, nausea or vomiting, chest pain, or any unexpected problems, contact your Primary Care Provider. Call [facility] ([phone]) or report to the closest Emergency Room. Call 911 if necessary. 06/15/18308 <Electronically signed by Jeannette Marvin MD> Date Jeannette Marvin MD Cosigner Signature (If Indicated): Date CC: Sole Banegas DO TROPONIN-I Collected: 06/15/2018 Status: F Source: [place] 2:20 AM [facility] REPOSITORY Order Comment: 'TROP' Serial specimen #1, #2 or #3: 2 TYPE CODE TESTS RESULT OUT OF RANGE REFERENCE UNITS LAB L501.4010 <0.045 ng/mL Normal < 0.015 TROPONIN-I Result Comment: TROPONIN-I EXPECTED VALUES <0.045 Negative 0.045 - 0.590 Consistent with Cardiac Damage > OR = 0.600 Critical Value Not every elevated troponin is indicative of WV. These values should be used with clinical judgement in examining the patient's clinical picture for diagnosis. To establish a diagnosis of WV versus myocardial injury, there must be a demonstrated rise and/or fall in the troponin values, in addition to ischemic symptoms, EKG changes, new regional wall motion abnormality, and/or angiographical evidence. PLEASE NOTE: REFERENCE RANGES EDITED 18 Performed By: #### L501.4010 #### [facility] [address] [place], [address] CTA CHEST W/WO Observed: 06/15/2018 Status: F Source: [place] CONTRAST 1:28 AM [facility] REPOSITORY [facility] Imaging Services [address] [place] [address] CTA Chest W/WO Contrast MR#: [id number] Acct: [id number] Name: GAURI LOVE Rep #: [id number] : 1980 F 37 From: Darren Del Rosario MD PCP: Sole Banegas DO Status: REG ER Study: CTA Chest W/WO Contrast Date of Exam: 06/15/18 Exam# [id number] Ordering Dr: Jeannette Marvin MD STUDY: CTA CHEST REASON FOR EXAM: Female, 37 years old. Chest pain with radiation to the back. RADIATION DOSAGE (If Supplied By Facility): CTDIvol = ( 4.61 ) mGy, DLP = ( 186.31 ) mGycm TECHNIQUE: The examination was performed with the intravenous administration of 75ML ml of Isovue 370 contrast material. Post-processing of the angiographic images was performed, with multiplanar reformation and 3D reconstruction. Individualized dose optimization techniques were used for this CT. COMPARISON: None. FINDINGS: Evaluation of the pulmonary arterial vasculature is limited due to timing of the contrast bolus. There is no definitive central pulmonary embolism. Segmental and subsegmental branches are limited in their evaluation due to admixture of contrast. Thoracic aorta demonstrates no aneurysmal dilatation or dissection. Normal heart and pericardium. Normal mediastinum. Normal hilar regions. Normal visualized trachea and bronchi. The lungs are well expanded. No confluent airspace infiltrate. No pleural effusion or pneumothorax. Normal chest wall structures. Normal osseous structures. Normal visualized upper abdomen. CT/CTA Chest W/WO Contrast IMPRESSION: 1. No definitive evidence of acute pulmonary embolism with evaluation being limited due to timing of the contrast bolus. Electronically Signed: Darren Del Rosario MD at 3:06 EDT Tel , Service support , CC: Jeannette Marvin MD; Sole Banegas DO Thread Separator: Signed CBC W/DIFF, AUTOMATED Collected: 06/14/2018 Status: F Source: [place] 11:20 PM [facility] REPOSITORY TYPE CODE TESTS RESULT OUT OF RANGE REFERENCE UNITS LAB L100.1000 4.4-11.0 K/mm3 Normal WBC 6.3 LAB L100.1200 4.2-5.4 M/mm3 Low RBC 3.93 LAB L100.1300 12.0-15.0 g/dl Normal HGB 12.5 LAB L100.1400 37-47 % Normal HCT 38.2 LAB L100.1500 81-99 fL Normal MCV 97.2 LAB L100.1600 27.0-32.0 pg Normal MCH 31.8 LAB L100.1700 32-36 g/gl Normal MCHC 32.7 LAB L100.1810 11.6-14.6 % Normal RDW CV 12.6 LAB L100.1820 35.1-43.9 fl Normal RDW SD 43.9 LAB L100.1900 150-450 K/mm3 Normal PLT 247 LAB L100.2000 6.2-12.0 fl Normal MPV 9.5 LAB L100.2100 47-70 % Normal NEUT% 65.8 LAB L100.2200 19-41 % Normal LY% 26.9 LAB L100.2300 0-10 % Normal MONO% 5.9 LAB L100.2400 0-5 % Normal EO% 1.0 LAB L100.2500 0-1 % Normal BASO% 0.2 LAB L100.2550 0.0-0.9 % Normal IM GRAN % 0.200 Result Comment: IG% - Immature Granulocytes (promyelocytes, myelocytes and metamyelocytes) > 1% indicates that a LEFT SHIFT is Present. LAB L100.2620 2.0-7.7 X10 3/uL Normal Absolute Neut 4.2 LAB L100.2720 0.83-4.51 X10 3/ul Normal Absolute Lymph 1.70 Performed By: #### L100.0100 #### [facility] [address] [facility] [place], [address] BASIC METABOLIC Collected: 06/14/2018 Status: F Source: [place] PROFILE (BMP) 11:20 PM [facility] REPOSITORY TYPE CODE TESTS RESULT OUT OF RANGE REFERENCE UNITS LAB L501.0100 74-106 mg/dL High GLU 115 Result Comment: Fasting Glucose result from 100 to 125 mg/dL suggests IMPAIRED HOMEOSTASIS per A.D.A. criteria. Please note revised GLUCOSE reference range effective 2017. LAB L501.1000 7-18 mg/dL Normal BUN 15 LAB L501.1100 0.55-1.02 mg/dL Normal CREAT,SERUM 0.67 Result Comment: The validity of the calculated GFR AND GFRAA in patients over 70 years has not been determined. Clinical correlation is essential. LAB L501.1110 >60 mL/min Normal EST GFR 104 Result Comment: Non- GFR Calc LAB L501.1115 >60 mL/min Normal EST GFR - AA 125 Result Comment: GFR Calc LAB L501.1255 ml/min Normal Estimated CRCL 105.53 LAB L501.1300 10-20 RATIO High BUN/CRE 22.4 LAB L501.2200 8.5-10 mg/dL .1 CA Normal 9.2 LAB L501.5300 136-14 mmol/L 5 NA Normal 139 LAB L501.5600 3.5-5. mmol/L 1 K Normal 3.5 LAB L501.5900 98-107 mmol/L CL Normal 104 LAB L501.6100 21.0-3 mmol/L 2.0 CO2 Normal 30.0 LAB L501.6200 5-15 GAP Normal 5 Performed By: #### L500.2500, L501.4010 #### [facility] [address] [facility] [place], [address] TROPONIN-I Collected: 06/14/2018 Status: F Source: [place] 11:20 [facility] REPOSITORY TYPE CODE TESTS RESULT OUT OF RANGE REFERENCE UNITS LAB L501.4010 <0.045 ng/mL Normal < 0.015 TROPONIN-I Result Comment: TROPONIN-I EXPECTED VALUES <0.045 Negative 0.045 - 0.590 Consistent with Cardiac Damage > OR = 0.600 Critical Value Not every elevated troponin is indicative of [place]. These values should be used with clinical judgement in examining the patient's clinical picture for diagnosis. To establish a diagnosis of WV versus myocardial injury, there must be a demonstrated rise and/or fall in the troponin values, in addition to ischemic symptoms, EKG changes, new regional wall motion abnormality, and/or angiographical evidence. PLEASE NOTE: REFERENCE RANGES EDITED 18 Performed By: #### L500.2500, L501.4010 #### [facility] [address] [place], [address] CHEST 1 VIEW Observed: 06/14/2018 Status: F Source: [place] (PORTABLE) 11:17 PM [facility] REPOSITORY [facility] Imaging Services [address] [facility] [place] [address] Chest 1 View (Portable) MR#: [id number] Acct: [id number] Name: GAURI LOVE Rep #: [id number] : 1980 F 37 From: Vel Mathis MD PCP: Sole Banegas DO Status: PRE ER Study: Chest 1 View (Portable) Date of Exam: 06/14/18 Exam# [id number] Ordering Dr: Jeannette Marvin MD STUDY: X-RAY CHEST REASON FOR EXAM: Female, 37 years old. Chest pain TECHNIQUE: Single frontal view of the chest. COMPARISON: None. FINDINGS: Lungs are hyperaerated. The lungs are clear and expanded. There is no demonstrated pleural abnormality. Normal size heart. Normal mediastinum and coral. Normal visualized pulmonary arteries. Normal visualized aortic arch and descending thoracic aorta. Normal visualized thoracic spine. Normal visualized ribs, clavicles, and shoulders. There is no demonstrated abnormality of the visualized soft tissue structures of the upper abdomen. RAD/Chest 1 View (Portable) IMPRESSION: Small airways disease. No acute disease. Electronically Signed: Vel Mathis MD at 23:32 EDT , Service support , CC: Jeannette Marvin MD; Sole Banegas DO Thread Separator: Signed ALLERGIES ALLERGIES DATE TYPE / CODE NAME / CODE REACTION SEVERITY SOURCE 08/22/2018 Drug No Known Unknown [place] Pending Sale To [facility] Allergy/4160 Allergies/F00 Hospital 88593(SNOMED 1447365(RXNOR Repository CT) M) ENCOUNTERS ENCOUNTERS ADMIT/DISCHARGE ACCOUNT ADMITTING ENCOUNTER LOCATION SOURCE NUMBER CLASS 10/17/2018 [id number] Ambulatory [place] 6 [facility] ing:OPBI Repository 10/04/2018 [id number] Ambulatory [place] Cesar 2 [facility] ing:LABSPEC Repository 08/22/2018/ [id number] Ambulatory BMSBuilding:B C[place] 8 8 [facility] Repository 08/15/2018/ [id number] Ambulatory [place] Cesar 8 2 [facility] ing:SDCRoom: Repository [facility] 08/15/2018/ [id number] Ambulatory BMSBuilding:B [place] 8 5 MS.CF.[facility] Repository 08/15/2018 [id number] Ambulatory BMSBuilding:W [place] 9 [facility] Repository 07/17/2018/ [id number] Ambulatory BMSBuilding:B [place] 8 8 [facility] Repository 06/23/2018 [id number] Ambulatory [place] Cesar 5 [facility] ing:US Repository 06/14/2018/ [id number] Emergency [place] 8 4 [facility] ing:ED Repository PAYERS PAYERS ENCOUNTER GUARANTOR PAYER SUBSCRIBER SOURCE 10/17/2018 GAURI Quinn Primary Insurance:NALLELY [id number] MUTUAL TPAPolicy [facility] Number: [id number] [id number] Repository [address]Fhf: (330) Date:2399-42-07QH [phone] () [address]UURBYVYCE, [place] [address]KK: CHECK WEBSITE 10/17/2018 Secondary NOT GIVENUNK [place] Insurance:SELF PAY [facility] Number: Effective Repository Date:2018-10-06 10/04/2018 GAURI L Primary Insurance:MED JU Leon [place] [id number] MUTUAL TPAPolicy [facility]OB[facility] Number: [id number], [place] [id number] Repository 218[address]Sil: (330) Date:4771-91-62JA [phone] () [address]TJHGPGSFK, [place] [address]DP: CHECK WEBSITE 10/04/2018 Secondary NOT GIVENUNK [place] Insurance:SELF PAY [facility] Number: Effective Repository Date:2018-10-04 08/22/2018 GAURI L Primary Insurance:MED JU [id number] MUTUAL TPAPolicy [facility]OB[facility] Number: [id number], [place] [id number] Repository 322[address]Gas: (330) Date:8316-99-11HS [phone] () [address]RBIMRYEYZ, [place] [address]XA: CHECK WEBSITE 08/22/2018 Secondary NOT GIVENUNK [place] Insurance:SELF PAY [facility] Number: Effective Repository Date:2018-08-22 08/15/2018 GAURI L Primary Insurance:MED JU [id number] MUTUAL TPAPolicy [facility]OB[facility] Number: [id number], [place] [id number] Repository 14[address]Kct: (330) Date:4995-23-79JN [phone] () [address]TITYBYPHS, [place] [address]LL: CHECK WEBSITE 08/15/2018 Secondary NOT GIVENUNK [place] Insurance:SELF PAY [facility] Number: Effective Repository Date:2018-07-17 08/15/2018 GAURI L Primary Insurance:MED JU Cheryoster [id number] MUTUAL TPAPolicy SHAFFERDOB: [facility] Number: [id number], [place] [id number] Repository [address]Vhd: (330) Date:9392-44-51FC [phone] () [address]882URPBMCUQE, [place] [address]RV: CHECK WEBSITE 08/15/2018 Secondary NOT GIVENUNK [place] Insurance:SELF PAY [facility] Number: Effective Repository Date:2018-08-15 08/15/2018 GAURI L Primary Insurance:MED JU [id number] MUTUAL TPAPolicy SHAFFERDOB: [facility] Number: [id number], [place] [id number] Repository [address]Lah: (330) Date:3505-13-99NE [phone] () [address]UYHRWOXGM, [place] [address]AL: CHECK WEBSITE 08/15/2018 Secondary NOT GIVENUNK [place] Insurance:SELF PAY [facility] Number: Effective Repository Date:2018-08-15 07/17/2018 GAURI L Primary Insurance:MED JU [id number] MUTUAL TPAPolicy SHAFFERDOB: [facility] Number: [id number], [place] [id number] Repository [address]Kaa: (330) Date:5053-12-98HS [phone] () [address]CHKXDSRXO, [place] [address]YS: CHECK WEBSITE 07/17/2018 Secondary NOT GIVENUNK [place] Insurance:SELF PAY [facility] Number: Effective Repository Date:2018-07-17 06/23/2018 Gauri L Primary Insurance:MED JU [id number] MUTUAL TPAPolicy SHAFFERDOB: [facility] Number: [id number], [place] [id number] Repository [address]Pwi: (330) Date:3460-30-87RF [phone] () 18167GWPQIRLBN, [place] [address]GU: CHECK WEBSITE 06/23/2018 Secondary NOT GIVENUNK [place] Insurance:SELF PAY [facility] Number: Effective Repository Date:2018-06-20 06/14/2018 Gauri Quinn Primary Insurance:NALLELY Love10057 [facility] PAZ: [facility] Number: [id number] [id number] Repository [address]Ben: (330) Date:2834-99-78VT [phone] () [id number], [place] [address]KF: CHECK WEBSITE 06/14/2018 Secondary NOT GIVENANGELINA [place] Insurance:SELF PAY [facility] Number: Effective Repository Date:2018-06-14
--- OUTSIDE RECORDS SUMMARY | 2018-11-29 05:59 | XMS RPT_ITS | Continuity of Care Document ---
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 (Normal) Comments: [facility] [address] [place], [address] :00 Comments: Patient: YURI LOVE : 1980 (36/F) Acct Num: [id number] Phys: Jesus Sosa MD Unit Num: [id number] Loc: LABSPEC Specimen: [id number] Received: 10/26/16 - 1223 Spec Type: I MMUNO TISSUES TISSUES: SPECIMEN INFORMATION: Tissue Source: A - Cervical biopsy four-quad Clinical Info: LGSIL Specimen Number: [id number] CPT code: 89534, 81892 METHODOLOGY : Deparaffinized sections of prefer/formalin-fixed tissue or PAP/DQ stained slides are incubated with monoclonal/polyclonal antibodies/oligonucleotide probes. Localization is made via biotin free im munoperoxidase method. Appropriate controls are performed and reacted as expected. Results on target cell population are indicated in the following table: RESULTS: ANTIBODY / CLONE RESULT Block A P16 (E6H4) positive, focal, dim, patchy Ki-67 (30-9) positive, low These tests were developed and their performance characteristics dete rmined by [facility]. They may not have been cleared or approved by the U.S. Food and Drug Administration. The FDA has determined that such clearance or approval is not nece ssary. INTERPRETATION: A. Cervix, four quad biopsy: Consistent with mild squamous dysplasia, DIANNA I (LGSIL). AM:arley 10/27/16 PHYSICIAN AND INSTITUTION [address] [address] Signed [facility] 10/27/16 <signature on file> 20-Sep-2016 CERVICAL See Note (Normal) Comments: [facility] [address] [place], [place], [id number] 15:30 Comments: Patient: YURI LOVE : 1980 (35/F) Acct Num: [id number] Phys: Ian BAPTISTE,[facility] Unit Num: [id number] Loc: LABSPEC Specimen: [id number] Received: 09/20/162144 Spec Type: CERV TISSUES TISSUES: GROSS DESCRIPTION Received is one container labeled with the patient's name and designated cervical polyp. The specimen consists of multiple fragments of trejo mucoid tissue that in aggregate measure 2 x 0.6 x 0.1 cm. The specimen is totally submitted in one cassette. / SJ:arley 09/21/16 TC:1 CPT:48978 HEADER OPERATION: Cervical polypectomy PRE-OP MANSI GNOSIS: N84.1 TISSUE SUBMITTED: Cervical polyp MICROSCOPIC DESCRIPTION Slides are reviewed. MICROSCOPIC DIAGNOSIS Cervical polyp, polypectomy: Fragments of benign endocervical poly p, inflamed. AM:arley 09/22/16 Signed [facility] 09/22/16 <signature on file> 15-Neh-[id number]:30 PAP I-G w/ Reflex to HR Comments: CYTOLOGY INFORMATION:- CLINICAL INFORMATION:- DATE LMP/MENOPAUSE: [id number] COLLECTION VIAL: Thin Prep Vial- TOPSTITCHER LOCKSTITCH SOURCE: CERVICAL/ENDOCERVICAL- COLLECTION TECHNIQUE: BRUSH/SPATULASpecimen Comment: CO-CW HPV [id number] Comment: No. of containers..01 CYTYC Thin Prep [facility]ialLab[facility] (refer to report for specific site)refer to report for address and phone number HPV HC,HGH Positive Comments: This high-risk HPV test detects thirteen high- risk types(16/18/31/33/35/39/45/51/52/56/58/59/68) withoutdifferentiation.Performed at: [address] (Abnormal) [place], [place] [id number] Director: Fatimah Glass MD, Phone: [phone] at: [facility] [id number] Director: Crystal Llanes MD, Phone: [phone] formed at: = - [facility] [id number] Director: Crystal Llanes MD, Phone: [phone] HPV RFLX Comment (Normal) Comments: See below for HPV testing results. PAPSMR Comment (Normal) Comments: The Pap smear is a screening test designed to aid in thedetection of premalignant and malignant conditions of theuterine cervix. It is not a diagnostic procedure andshould not be used as the sole means of detecting cervicalcancer. Both false-positive and false-negative reports dooccur. COMM . (Normal) TEST METHOD Comment (Normal) Comments: This liquid based ThinPrep(R) pap test was screened withthe use of an image guided system. Path prov. Comment (Normal) Comments: R87.612 ICD9 SIGN Comment (Normal) Comments: Arianna Newsome MD, Pathologist PERFORM Comment (Normal) Comments: Miora Enriquez, Legal Document Assistant ADEMichael Comment (Normal) Comments: Satisfactory for evaluation. Endocervical and/or squamous metaplasticcells (endocervical component) are present. DIAGN Comment Comments: EPITHELIAL CELL ABNORMALITY.LOW-GRADE SQUAMOUS INTRAEPITHELIAL LESION (LGSIL); MILD DYSPLASIA ISPRESENT. (Abnormal) 53-[id number]:30 Culture, Wound Comments: [facility] [address] [place], [place], [address] CUW See Note (Normal) Comments: Gram StainGram Stain Rare Red Blood Cells Rare Red Cell Stroma No organisms seen Wound CultureNo growth aerobically. :30 MRSA Wound DNA by PCR Comments: Specimen Source? RIGHT [facility] [address] [place], [place], [id number] SA RESULT NEGATIVE (Normal) MRSA RESULT Negative (Normal) :57 URINE MICHI CULTURE-RENE COL Comments: PATIENT NOT FASTINGPERFORMED BY: [facility] [address] [facility] [id number] Information: SRC:[facility] [id number] COUNT (82114) Antimicrobial MIHEAD (Normal) Comments: S = Susceptible; I = Intermediate; R = Resistant P = Positive; N = Negative MICS are expressed in micrograms per mL Antibiotic RSLT#1 RSLT#2 RS Susceptibility LT#3 RSLT#4Amoxicillin/Clavulanic Acid SAmpicillin RCefepime SCeftriaxone SCefuroxime SCephalothin SCiprofloxacin SErtapenem SGentamicin SImipenem SLevofloxacin SNitrofurantoin IPipera cillin STetracycline RTobramycin STrimethoprim/Sulfa S Result 1 Klebsiella Comments: Greater than 100,000 colony forming units per mL pneumoniae (Abnormal) Urine Final report Culture,Comprehensive (Abnormal) 50-Yss-618987:35 Urinalysis, Office (20654) UA - LEUKOCYTE ESTERASE Moderate (Normal) UA - NITRITE Negative (Normal) URINE UROBILINGN RENE TIMED Normal mg/dL (Normal) UA - PROTEIN Negative mg/dL (Normal) UA - PH 7.0 (Normal) Comments: 6.5 UA - BLOOD Negative (Normal) UA - SPECIFIC GRAVITY 1.025 (Normal) UA - KETONES Negative mg/dL (Normal) UA - BILIRUBIN Negative (Normal) UA - GLUCOSE Negative (Normal) 25-Jul-20158:08 Rapid Strep Test, Office (57443) Rapid Strep Test, Negative (Normal) Office 24-Oct-20147:43 FALS (Normal) Comments: Patient: YURI LOVE : 1980 (34/F)Acct Num: [id number] Phys: Jesus Sosa MDHenry [facility]. [facility] Num: [id number] Loc: SDCSpecimen: [id number] Received: 10/24/143Spec Type: FALL TUBESTISSUEST ISSUES:GROSS DESCRIPTIONReceived is one container labeled with the patient name and designatedbilateral fallopian tube segments. The specimen consists of bilateralsegments of fallopian tube including fimbrial ends. They are not identified asright and left. One of the segments measures 4 cm in length and 0.5 cm indiameter. The other segment measures 4.5 cm in length and 0.5 cm in diameter.The ent ene specimen is submitted in two cassettes with each cassette containingone segment of tube. / SJ:gwen 10/24/14 TC:4CPT: 36136 [id number]: Bilateral partial salpingectomyPRE-OPERATIVE DIAGNOSIS: D esires permanent sterilizationTISSUE SUBMITTED: Bilateral fallopian tube segmentsMICROSCOPIC DIAGNOSISBilateral fallopian tube segments:Completely transected segments of fallopian tubes including fimbri al end, nopathologic diagnosis.: 10/25/14Signed Sunil Lion 10/25/14<signature on file> 36-Jvb-086019:33 CBC MPV 9.8 fL (Normal) Range: 6.2-12.0 PLT 207 K/mm3 (Normal) Range: 150-450 RDWSD 45.5 fL (Abnormal) Range: 35.1-43.9 RDWCV 13.1 % (Normal) Range: 11.6-14.6 MCHC 32.9 {g/gl} (Normal) Range: 32-36 MCH 31.5 pg (Normal) Range: 27.0-32.0 MCV 95.7 fL (Normal) Range: 81-99 HCT 37.4 % (Normal) Range: 37-47 HGB 12.3 g/dL (Normal) Range: 12.0-15.0 RBC 3.91 {M/mm3} (Abnormal) Range: 4.2-5.4 WBC 6.1 K/mm3 (Normal) Range: 4.4-11.0 :33 PREGS tPREGS NEGATIVE {Negative} (Normal) Range: 0-9 Nonpreg tHCGT < 1 m[iU]/mL (Normal) 37-Qau-760273:33 TSPAT Comments: Surgery Date: 10/24/14Hx of Preganancy in last 3 Months NoEver experience any problems with transfusion(s)? NHx of Transfusion in last 3 Months NReason for Type & Screen/Red Cells: SURGERYTime: 0600Other - use comments: UNKSURGICAL PROCEDURE: OTHER SC3 NEGATIVE (Normal) SC2 NEGATIVE (Normal) SC1 NEGATIVE (Normal) ABS NEGATIVE (Normal) BT O POSITIVE (Normal) :54 JAYLYN DIR SEMI-QL Comments: appt 02/19/11 JAYLYN DIRECT 27 AU/mL (Normal) :54 C-REACTIVE PROT < 2.90 mg/L (Normal) Range: 0.0-3.0 Comments: C-Reactive Protein (CRP) provides useful information for thediagnosis, therapy and monitoring of inflammatory processesand associated diseases. For the evaluation of Relative Riskfor Cardiovascular Dise ase, a High Sensitivity CRP (HSCRP)should be ordered. :54 CBCD,SMEAR DIFF Comments: appt 02/19/11 RED CELL MORPH SeeNote {NORMAL} (Normal) Comments: Result: NORM C+C PLT EST SeeNote (Normal) Comments: Result: ADEQUATE EOS 2 % (Normal) Range: 0-5 MONOCYTE 5 % (Normal) Range: 0-10 CELLS COUNTED 100 (Normal) LYMPH 34 % (Normal) Range: 19-41 SEGS 59 % (Normal) Range: 47-70 ABSOLUTE NEUT 3.6 3/uL (Normal) Range: 2.0-7.7 PLT 263 K/mm3 (Normal) Range: 150-450 MCH 31.6 pg (Normal) Range: 27.0-32.0 MCHC 34.2 g/dL (Normal) Range: 32-36 RDW 13.8 % (Normal) Range: 11.6-14.6 MCV 92.3 fL (Normal) Range: 81-99 HCT 39.2 % (Normal) Range: 37-47 HGB 13.4 g/dL (Normal) Range: 12.0-16.0 RBC 4.25 {M/mm3} (Normal) Range: 4.2-5.4 WBC 5.6 K/mm3 (Normal) Range: 4.4-11.0 :54 COMP METABOLIC CL 101 mmol/L (Normal) Range: 98-107 CO2 29.0 mmol/L (Normal) Range: 21.0-32.0 GAP 7 (Normal) Range: 5-15 K 4.0 mmol/L (Normal) Range: 3.5-5.1 ALT 28 U/L (Normal) Range: 12-78 NA 137 mmol/L (Normal) Range: 136-145 T BILI 0.40 mg/dL (Normal) Range: 0.00-1.00 ALK P 124 U/L (Normal) Range: 50-136 AST 16 U/L (Normal) Range: 15-37 CA 9.0 mg/dL (Normal) Range: 8.5-10.1 A/G 1.1 {RATIO} (Normal) Range: 0.9-2.4 ALB 4.1 g/dL (Normal) Range: 3.4-5.0 GLOB 3.8 g/dL (Normal) Range: 2.7-4.2 BUN/CRE 24.3 {RATIO} (Abnormal) Range: 10-20 EST GFR - AA 125 mL/min (Normal) T PROT 7.9 g/dL (Normal) Range: 6.4-8.2 CREAT,SERUM 0.7 mg/dL (Normal) Range: 0.6-1.0 EST GFR 103 mL/min (Normal) BUN 17 mg/dL (Normal) Range: 7-18 GLU 84 mg/dL (Normal) Range: 70-110 :54 ESR SED RATE 11 mm/h (Normal) Range: 0-20 :54 LIPID HDL 70 mg/dL (Normal) Comments: Reference Range HDL <40 mg/dL Low HDL Cholesterol HDL >or= 60 mg/dL High HDL Cholesterol LDL 100 mg/dL (Normal) Range: 0-130 VLDL 16 mg/dL (Normal) Range: 5-40 CHOL 186 mg/dL (Normal) Comments: <200 mg/dL Desirable 200-240 mg/dL Borderline >240 mg/dL High Risk TRIG 81 mg/dL (Normal) Comments: Serum Triglycerides Reference Interval Normal <150 mg/dL Borderline high 150 - 199 mg/dL High 200 - 499 mg/dL Very High > or = 500 mg/dL :54 TSH 1.56 {uIU/mL} (Normal) Range: 0.358-3.74 :41 Urine Test, Office (31486) Urine Test, Office Negative (Normal) Comments: aw :22 LIPID CHOL 238 mg/dL (Abnormal) Comments: <200 mg/dL Desirable 200-240 mg/dL Borderline >240 mg/dL High Risk HDL 62 mg/dL (Normal) Comments: Reference Range HDL <40 mg/dL Low HDL Cholesterol HDL >or= 60 mg/dL High HDL Cholesterol LDL 140 mg/dL (Abnormal) Range: 0-130 TRIG 178 mg/dL (Normal) Comments: Serum Triglycerides Reference Interval Normal <150 mg/dL Borderline high 150 - 199 mg/dL High 200 - 499 mg/dL Very High > or = 500 mg/dL VLDL 36 mg/dL (Normal) Range: 5-40 Plan of Care Name Dates Details Instructions Acute sinusitis, unspecified : *URI Treatment Indication: Acute sinusitis, unspecified Acute sinusitis, unspecified : *URI Symptoms Indication: Acute sinusitis, unspecified Acute sinusitis, unspecified : *Antibiotic Usage Education - Female Indication: Acute sinusitis, unspecified Nonsmoker : Eprescribed prescriptions (G8553) Indication: Nonsmoker Chest pain, atypical : Reviewed Lab Indication: Chest pain, atypical Chest pain, atypical : Reviewed Diagnostic Tests Indication: Chest pain, atypical Chest pain, atypical : Reviewed Manager Critical Care Unit Letter Indication: Chest pain, atypical Sore throat : Follow up if no improvement or if symptoms worsen Indication: Sore throat Sore throat : Eprescribed prescriptions (G8553) Indication: Sore throat Body mass index (BMI) 20.0-20.9, adult : Eprescribed prescriptions (G8553) Indication: Body mass index (BMI) 20.0-20.9, adult Shoulder pain, right : Eprescribed prescriptions (G8553) Indication: Shoulder pain, right Dysuria : Eprescribed prescriptions (G8553) Indication: Dysuria Sore throat : Follow up if no improvement or if symptoms worsen Indication: Sore throat Tonsillitis : Laryngitis Education Indication: Tonsillitis Eustachian tube dysfunction : Follow up if no improvement or if symptoms worsen Indication: Eustachian tube dysfunction Acute sinusitis, unspecified : *URI Symptoms Indication: Acute sinusitis, unspecified Acute sinusitis, unspecified : *Antibiotic Usage Education - Female Indication: Acute sinusitis, unspecified Acute sinusitis, unspecified : Follow up if no improvement or if symptoms worsen Indication: Acute sinusitis, unspecified Weight loss : Reviewed Lab Indication: Weight loss Weight loss : FOLLOW UP IN 2 WEEKS Indication: Weight loss Allergic rhinitis due to other allergen : ALLERGY CONTROL Indication: Allergic rhinitis due to other allergen Allergic rhinitis due to other allergen : ALLERGY PROOFING Indication: Allergic rhinitis due to other allergen Allergic rhinitis due to other allergen : URI Symptoms Indication: Allergic rhinitis due to other allergen Acute sinusitis, unspecified : *URI Treatment Indication: Acute sinusitis, unspecified Acute sinusitis, unspecified : Antibiotic Usage Education - Female Indication: Acute sinusitis, unspecified Acute sinusitis, unspecified : URI Symptoms Indication: Acute sinusitis, unspecified Planned Observations JAYLYN (ANTINUCLEAR ANTIBODY) (22389)Indication: Weight loss On: :57 Request C-REACTIVE PROTEIN (19842)Indication: Weight loss On: :57 Request SED RATE ERYTHROCYTE (16803)Indication: Weight loss On: :57 Request TSH (33053)Indication: Weight loss On: :57 Request METABOLIC PANEL, COMPREHENSIVE (19845)Indication: Weight loss On: :57 Request LIPID PANEL (50810)Indication: Weight loss On: :57 Request CBC WITH MANUAL DIFF (57135)Indication: Weight loss On: :57 Request LIPID PANEL (54882)Indication: Migraine On: 36-Rts-704702:35 Request Planned Procedures ULTRASOUND - GALL BLADDER (87128)By: Sole Banegas DO On: 19-Jun-2018 Intent Sole Banegas DO Eprescribed prescriptions (G8553)By: Sole Banegas DO On: 09-Apr-2014 Intent Makenzie JALLOH Sole Instructions Name Dates Details Nonsmoker : How to access health information online Indication: Nonsmoker Nonsmoker : How to access health information online - Detail Indication: Nonsmoker Nonsmoker : Patient Instructions Indication: Nonsmoker BMI 22.0-22.9, adult : How to access health information online Indication: BMI 22.0-22.9, adult BMI 22.0-22.9, adult : How to access health information online - Detail Indication: BMI 22.0-22.9, adult BMI 22.0-22.9, adult : Patient Instructions Indication: BMI 22.0-22.9, adult Sore throat : How to access health information online Indication: Sore throat Sore throat : How to access health information online - Detail Indication: Sore throat Sore throat : Patient Instructions Indication: Sore throat Tonsillitis with exudate : Patient Instructions Indication: Tonsillitis with exudate Body mass index (BMI) 20.0-20.9, adult : How to access health information online Indication: Body mass index (BMI) 20.0-20.9, adult Shoulder pain, right : How to access health information online - Detail Indication: Shoulder pain, right Shoulder pain, right : Patient Instructions Indication: Shoulder pain, right Dysuria : How to access health information online Indication: Dysuria Dysuria : How to access health information online - Detail Indication: Dysuria Dysuria : Patient Instructions Indication: Dysuria Encounters Office Visit On: 31-Oct-2018 10:20 Encounter Reason: Sinusitis - Symptoms include nasal congestion, cheek pressure, cough and ear pressure. Onset was 1 week(s) ago. Note for Sinusitis: pressue and green and painEncounter Diagnosis: Nonsmoker, BMI 22.0-22.9, adult, End: 31-Oct-2018 11:12 Acute sinusitis, unspecified, Cough [facility] Phone Encounter On: 23-Aug-2018 9:44 Encounter Diagnosis: Epigastric pain End: 23-Aug-2018 9:48 [facility] Office Visit On: 04-Jul-2018 10:42 Encounter Diagnosis: Abnormal ultrasound End: 05-Jul-2018 7:57 [facility] Office Visit On: 19-Jun-2018 8:08 Encounter Reason: Follow up ER - Reason for hospitalization note: (chest pain wed into mirella zimmerman. Had labs,ekg, ct scan and sent her home after pain meds). The patient feels well with minor complaints.Encounter Diagnosis: Nonsmoker, End: 19-Jun-2018 8:40 BMI 22.0-22.9, adult, RUQ pain, Epigastric pain, Chest pain, atypical [facility] Office Visit On: 09-May-2017 14:45 Encounter Reason: Follow up acute care visit - The patient feels the same. Patient has been compliant with instructions. The medical issues the patient is following up for include other (Sore throat).Encounter Diagnosis: Nonsmoker, Sore throat, End: 09-May-2017 16:32 Body mass index (BMI) 21.0-21.9, adult, Tonsil stone, Sinusitis, bacterial [facility] Office Visit On: 02-May-2017 15:36 Encounter Reason: Sore Throat - No changes in management were made at the last visit. Symptoms include sore throat and postnasal drainage, while symptoms do not include fever or chills. The symptoms are left sided. There End: 02-May-2017 16:21 is no radiation. The patient describes the pain as dull. Onset was sudden 3 day(s) ago. The symptoms occur constantly. The patient describes this as mild.Encounter Diagnosis: Nonsmoker, Body mass index (BMI) 20.0-20.9, adult, Sore throat, Tonsillitis with exudate [facility] Office Visit On: 13-Dec-2016 15:00 Encounter Reason: Shoulder Problem - This shoulder problem is following a specific injury. The patient is right hand dominant. The injury involved the right shoulder. This occurred 3 month(s) ago. No changes in managemen End: 13-Dec-2016 15:34 t were made at the last visit. Symptoms include shoulder pain, tenderness, shoulder stiffness, decreased range of motion and shoulder instability. Symptoms are located in the right shoulder. Onset was sudden. The symptoms occur intermittently. Encounter Diagnosis: Shoulder pain, right, Body mass index (BMI) 20.0-20.9, adult, Nonsmoker [facility] Office Visit On: 06-May-2016 13:34 Encounter Reason: Urinary problemsEncounter Diagnosis: Dysuria, Acute cystitis without hematuria, Yeast vaginitis End: 06-May-2016 13:49 [facility] Office Visit On: 25-Jul-2015 8:04 Encounter Reason: Sore Throat - The last clinic visit was 1 week(s) ago. Symptoms include sore throat, nasal congestion and postnasal drainage. The symptoms are symmetrical. The pain radiates to the left ear. The patient End: 25-Jul-2015 13:30 describes the pain as burning. Onset was gradual 1 week(s) ago. The symptoms occur constantly. The patient describes this as moderate in severity and worsening. Symptoms are exacerbated by swallowing l iquids and swallowing solids. Symptoms are relieved by decongestants. Associated symptoms include headache, ear pain and fatigue. Current treatment includes decongestants. By report there is good compli ance with treatment. Presenting symptoms included sore throat, postnasal drainage, swollen glands and headache. Past treatment has included decongestants.Encounter Diagnosis: Sore throat, Tonsillitis [facility] Office Visit On: 28-Feb-2015 8:20 Encounter Reason: Sinusitis - The last clinic visit was 4 day(s) ago. Symptoms include nasal congestion, postnasal drainage, cheek pressure, upper tooth pain, forehead pressure, cough, ear pressure and headache. Onset wa End: 28-Feb-2015 8:56 s gradual 4 day(s) ago. The symptoms occur constantly. The episodes occur daily and last for 4 days. The patient describes this as moderate in severity and worsening. Symptoms are exacerbated by bending forward. Symptoms are relieved by oral decongestant (sudafed). Associated symptoms include sore throat. Current treatment includes oral decongestant. By report there is good compliance with treatment. Previous presentation included nasal congestion, postnasal drainage, cheek discomfort, upper tooth pain, forehead pain, forehead pressure, cough, ear discomfort and headache. This problem has not been previously evaluated.Encounter Diagnosis: Sinusitis,chronic (473.9), Eustachian tube dysfunction (381.81) [facility] Phone Encounter On: 11-Apr-2014 15:37 Encounter Diagnosis: Sinusitis,chronic (473.9) End: 11-Apr-2014 15:39 [facility] Office Visit On: 09-Apr-2014 11:12 Encounter Reason: Jaw pain, [ADDITIONAL REASON] Sinusitis - The last clinic visit was 5 day(s) ago. No changes in management were made at the last visit. Symptoms include nasal congestion, forehead pain, cough, ear fullness and h End: 09-Apr-2014 12:02 eadache. Onset was sudden. The symptoms occur constantly. The patient describes this as mild and unchanged. Encounter Diagnosis: Lock jaw, Acute sinusitis, unspecified (461.9) [facility] Office Visit On: 03-Dec-2011 13:55 Encounter Reason: Sinusitis/ - The duration of the symptoms are 3 weeks The course has been worsening. The sinusitis/ has no relieving factors. Associated features include The symptoms have been associated with ear pain End: 03-Dec-2011 14:19 (bilatteral pressure), nasal discharge/stuffy nose (green), sinus pain and teeth pain, while the symptoms have not been associated with cough. No previous evaluations were reported.Encounter Diagnosis: Acute sinusitis, unspecified (461.9) [facility] Office Visit On: 19-Feb-2011 7:11 Encounter Reason: Follow up, Laboratory Test Results - Date: (02-09-11).Encounter Diagnosis: Weight loss (783.21) End: 19-Feb-2011 8:01 [facility] Office Visit On: 05-Feb-2011 14:32 Encounter Reason: Ear pain - The onset of the pain has been gradual and has been occurring in a persistent pattern for weeks. The course has been constant. The pain is described as a mild dull aching and sharp pain. The End: 05-Feb-2011 16:00 pain is described as being located in the inner ear. The pain is felt in the left ear. The symptoms have been associated with decreased hearing and sinus problems, while the symptoms have not been assoc iated with fever, inability to 'pop' ear drum, non-purulent discharge from ear, protrusion of ear or sore throat., [ADDITIONAL REASON] Weight loss - The patient has had the problem of weight loss for 6 months (had b silva in jul and I was 89 prior to and I gained 25 to 30 pounds with him.). The patient's appetite is normal. The patient's dietary intake is normal. The patient has lost 25 pounds. There has been no associated constipation, diarrhea, nausea or vomiting. Encounter Diagnosis: Otalgia, unspecified (388.70), Eustachian tube dysfunction (381.81), Weight loss (783.21) [facility] Office Visit On: 18-Jan-2011 9:05 Encounter Reason: Cough - The onset of the cough has been sudden and has been occurring in a persistent pattern for 5 days. The course has been constant. The cough is characterized as productive of mucoid sputum. The sony End: 18-Jan-2011 13:32 unt of sputum produced is scanty. The cough occurs mainly at night. The symptoms are aggravated by supine posture. The symptoms have been associated with hoarseness, runny nose and sore throat.Encounter Diagnosis: LARYNGITIS, ACUTE, W/O MENTION OF OBSTRUCTION (464.00), Acute sinusitis, unspecified (461.9) [facility] Office Visit On: 03-Mar-2009 10:18 Encounter Reason: Sinus pain - The onset of the pain has been acute and has been occurring in a persistent pattern for 1 weeks. The course has been constant. The pain is characterized as a pressure sensation. The pain is End: 03-Mar-2009 10:57 experienced any time of the day (no diurnal variation). The pain is described as being located in the frontal area. The symptoms have been associated with ear pain (minimal) ,nasal discharge/stuffy nos e ,sinusitis in the past and tenderness over sinuses, while the symptoms have not been associated with eye pain. Encounter Diagnosis: Acute sinusitis, unspecified (461.9), Allergic rhinitis due to other allergen (477.8) [facility] Historical Summary On: 11-Sep-2008 8:20 [facility] End: 11-Sep-2008 8:22 Office Visit On: 10-Sep-2008 14:06 Encounter Reason: new patient female physical - Last seen between 6-12 months ago. General health: feels well with minor complaints ,has good energy level and is sleeping well. The patient's appetite is normal. Nutrition End: 10-Sep-2008 14:42 : supplemental vitamins & iron. Exercises 0 days per week. Sleeps on average 7 hours per night. Normal bowel and bladder habits. Safety measures include appropriate use of safety belts and home smok e detectors. There are no current emotional problems. screening, Pap smear ( 1 year ago). Encounter Diagnosis: Migraine (346.80) [facility] Love; fausto guarantor
--- OUTSIDE RECORDS SUMMARY | 2018-11-29 05:59 | XMS RPT_ITS | Continuity of Care Document ---
:1980 Author Organization [facility] Address [address] [place] [address] Phone Care Team Providers Name Role Phone Sole Banegas DO Unavailable Joseph BAPTISTE, Gaston Leon Unavailable [facility], [facility] Unavailable long, hayes Unavailable Unavailable Messenger, AUDIT INTERN Paola Unavailable Unavailable Slathad AUDIT INTERN, Amy Unavailable Unavailable NATACHA Pittman Unavailable Unavailable Unavailable Unavailable Problems Name Dates [...] Chest pain, atypical (R07.89, 786.59) Status: Active Dysuria (R30.0, 788.1) Status: Active [...] 112.1) Status: Active Medications Name Dates Details Esomeprazole Magnesium 40 MG Oral Capsule Delayed Release 1 (one) Capsule qd for 0 days Quantity: 30 {Capsule} Refills: 0 Ordered:23-Aug-2018 Tomeka Betancourt MD Start : 23-Aug-2018 Active FINAC, 2% (External Lotion) 1 as needed (2 %) Active Comments:Medication taken as needed. MULTI-VITAMIN (Oral Tablet) 1 qd for 0 days Refills: 0 Ordered:03-Mar-2009 Calame, BrookeActive Viorele 0.15-0.02/0.01 MG (10/04) Oral Tablet 1 qd (0.15-0.02/0.01 MG (21/)) Active Amoxicillin 500 MG Oral Capsule 1 (one) Capsule Capsule bid for 0 days Quantity: 20 {Capsule} Refills: 0 Ordered:30-Eloy-2018 Paola Diamond LPN Start : 06-May-2016 End : 19-Jun-2018 Inactive Augmentin 875-125 MG Oral Tablet 1 Tablet bid for 10 days Quantity: 20 {Tablet} Refills: 0 Ordered:09-May-2017 Paola Mckeon Start : 09-May-2017 End : 19-May-2017 Inactive BENZOYL PEROXIDE WASH, 10% (External Liquid) [...] daily for 0 days Refills: 0 Ordered:18-Jan-2011 Hamilton RUDYMelanie Start : 03-Mar-2009 End : 18-Jan-2011 Inactive NexIUM 24HR 20 MG Oral Capsule Delayed Release 2 (two) Capsule qd for 0 days Quantity: 60 {Capsule} Refills: 2 Ordered:23-Aug-2018 NATACHA Pittman Start : 23-Aug-2018 End : 23-Aug-2018 Inactive TRETIN-X, 0.01% GEL (External Kit) qd for 0 days Refills: 0 Ordered:18-Jan-2011 Hamilton RUDY Melanie End : 18-Jan-2011 Inactive ZITHROMAX Z-KT, 250MG [...] : 25-Jul-2015 Discontinued Comments:This order discontinued per [facility]. ORTHO-CEPT (28), 0.15-30MG-MCG (Oral Tablet) 1 qd [...] Visit Report Result: Comments: See Note; NOTES: [address] [place] [address] OFFICE VISIT Date of Service: 08/22/18 MR#: [id number] Acct: [id number] Name: BANDAR LeonidYURI L Rep #: [id number] : 1980 Provider: Lizzeth Cruz PA-C Age/Sex: 37/F Location: [facility] Status: Signed Intake Intake Visit Reasons: Gall Bladder Surgery 08/15 DP Manager Personal Required: No Is patient in pain?: No [...] Follow-up as needed - May return to wor k tomorrow - No lifting greater than 35 pounds for 2 weeks Coding Level of Care Code Global Post Op Diagnoses Calculus of gallbladder with acute cholecystitis without obstruction K80.00 08/22/18 1 220 <Electronically signed by Lizzeth Cruz PA-C> Date Lizzeth Cruz PA-C Cosigner Signature: Date (if applicable) CC: Sole Banegas DO 22-Aug-2018 Operative Report Result: Comments: See Note; NOTES: [facility] Medical Records Department [address] [place] [address] Operative Report 08/15/18 1237 MR#: [id number] Acct: [id number] Name: TRUNG LOVE Kai Rep #: [id number] : 1980 37 From: Gaston Desai MD PCP: Sole Banegas DO Status: [facility] Y Location: [facility] Problem List (1) Calculus of gallbladder with [...] the fascia the umbilical port with a zgmnde-hw-dfbqt stitch of 0 Vicryl. Skin inci sions [...] Lead Electrocardiogram Result: Comments: See Note; NOTES: [facility] Cardiovascular Services [address] [place] [address] 12 Lead EKG 08/15/18 1013 MR#: [id number] Acct: [id number] Name: YURI LOVE Re p #: [id number] : 1980 37 From: Adrian Gannon MD Attending Dr: Gaston Desai MD Status: DEP [facility] Ordering Dr: Gaston Desai MD Date: 08/15/18 Location: [facility] Sex: F C Admitted: Test Reason : [...] No significant change was found Confirmed by TAMIKA BAPTISTE, ADRIAN ([id number]), pictures editor BLESSING AYALA (56) on 08/18/2018 3:12:09 P M Referred By: Gaston Desai Confirmed By:ADRIAN GANNON MD 08/18/18 1512 Date Adrian Gannon MD CC: Gaston Desai MD; Sole Banegas DO Signed 15-Aug-2018 Discharge Instruction Result: Comments: See Note; NOTES: [facility] Medical Records Department [address] [place] [address] Instructions for Home/Discharge Instructions 08/15/18 1236 MR#: [id number] Acct: [id number] Name: KATEYURI Quinn Rep #: [id number] : 1980 37 From: Gaston Desai MD PCP: Sole Banegas DO Status: REG SD Discharge Diet: Light diet - advance as [...] With: Gaston Desai MD - Please call [phone] to [facility] an appointment. When: 7 days after your surgery. 08/15/18 5267 <Electronically signed by Gaston Desai MD> Date Gaston Desai MD CC: Sole Banegas 17-Jul-2018 Surgery Visit Report Result: Comments: See Note; NOTES: [facility] [address] [place] [address] OFFICE VISIT Date of Service: 07/17/18 MR#: [id number] Acct: [id number] Name: YURI JONES Rep #: [id number] : 1980 Provider: Gaston Desai MD Age/Sex: 37/F Location: [facility] Status: Signed Intake Vital Signs07/17/18 Height 5 ft 6 in 07/17/18 Weight: 130 lb Intake Visit R easons: R Upper Quadrant Pain/US [facility] 8/ Manager Personal Required: No Is patient in pain?: No Allergies No Known Allergies Allergy (Verified 07/17/18 07:36) Medications desogestrel-e.estradiol 0.15 mg -0.02 mg(21)/e.estrad 0.01 mg(5) tablet 1 tab PO DAILY 07/17/18 [History Confirmed 07/17/18] [facility] Medical History Abdominal pain (Acute) Acid reflux (Acute) Cholelithiasis (Acute) Diarrhea (Acute) Nausea (Acute) Surgical History History of tubal ligation (Acute) history corrective eye surgery (Ac cachil dehe) Social History Smoking Status: Never smoker alcohol intake: never substance use type: does not use HPI HPI HPI: YURI LOVE, is a 37 F who presents [...] person, oriented to place, oriented to time [facility] Head: normocephalic, atraumatic Ears: external ears normal [...] leak, retained gallstones requiring another procedure 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 There is no pericholecystic fluid or gallbladder wall thickening. Electronically Signed: Mundo Ngo MD at 20:08 EDT , Service support , CC: Sole Banegas DO [employer] Back Feeder: Signed 16-Jun-2018 12 Lead Electrocardiogram Result: Comments: See Note; NOTES: [facility] Cardiovascular Services [address] [place] [address] 12 Lead EKG 06/14/186 MR#: [id number] Acct: [id number] Name: YURI LOVE Re p #: [id number] : 1980 37 From: Mumtaz Tovar MD [...] ECG Confirmed by LA BAPTISTE, MUMTAZ ([id number]), pictures editor BLESSNIG AYALA (56) on 06/16/2018 1:32:17 PM Referred By: TEZ Confirmed By:MUMTAZ TOVAR MD 06/16/18 1332 Date Mumtaz Tovar MD CC: Jeannette Marvin MD; Sole Banegas DO Signed 15-Jun-2018 Emergency Department Summary Result: Comments: See Note; NOTES: [facility] Medical Records Department [address] [place] [address] Emergency Department Summary 06/14/187 MR#: [id number] Acct: [id number] Name: YURI LOVE Rep #: [id number] : 1980 37 From: Jeannette Marvin MD [...] Chest pain This note was generated with [employer] dictation software. It may contain incorrect words, spelling, and punctuation that were not noted in review of the chart prior to signing ED Disposition - Plan for ED Patient: Chief Complaint: Chest Pain Referrals: Sole Banegas DO [Primary Care Provider] - What to do if you have Problems For any increased pain, shortness of breath, bleeding, nausea or vomiting, chest pain, or any unexpected problems, contact your Primary Care Provider. Call [facility] ([phone]) or report to the closest Emergency Room. Call 911 if necessary. 06/15/18 0320 <Electronically signed by Jeannette Marvin MD> Date Jeannette Marvin MD Cosigner Signature (If Indicated): Date CC: Sole Banegas DO 15-Jun-2018 Discharge Instruction Result: Comments: See Note; NOTES: [facility] Medical Records Department [address] [place] [address] Discharge Instruction 06/15/18308 MR#: [id number] Acct: [id number] Name: YURI LOVE Rep #: [id number] : 1980 37 From: Jeannette Marvin MD [...] your Primary Care Provider. Call [facility] ([phone]) or report to the closest Emergency Room. Call 911 if necessary. 06/15/18308 <Electroni angel signed by Jeannette Marvin MD> Date Jeannette Marvin MD Cosigner Signature (If Indicated): Date CC: Sole Banegas DO 15-Jun-2018 CTA Chest W/WO Contrast Result: Comments: See Note; NOTES: [facility] Imaging Services [address] [place] [address] CTA Chest W/WO Contrast MR#: [id number] Acct: [id number] Name: YURI LOVE Rep #: [id number] : 1980 F 37 From: Darren Del Rosario MD PCP: Sole Banegas DO Status: REG ER Study: CTA Chest W/WO Contrast Date of Exam: 06/15/18 Exam# [id number] Ordering Dr: Jeannette Marvin MD STUDY: CTA [...] Normal visualized upper abdomen. ORDER # : [id number] CT/CTA Chest W/WO Contrast IMPRESSION: 1. No definitive evidence of acute pulmonary embolism with evaluation being limited due to timing of the contrast bolus. Electronically Signed: Darren Del Rosario MD at 3:06 EDT Tel , Service support , CC: Jeannette Marvin MD; Sole Banegas DO [employer] Back Feeder: Signed 23-Dec-2016 Inital Evaluation (1) - PT Result: Comments: See Note; NOTES: [facility] [address] [place], [place] [address] Fax REHABILITATION SERVICES INITIAL EVALUATION MR#: [id number] Acct: [id number] Name: YURI LOVE Rep #: [id number] : 1980 36 From: Cesilia Jang DPT [...] week and thought it was just sore. Michelle started to wake her up and now [...] pain- sometimes flares up but currently. 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 Palpation: tender along medial border of [...] to be FAXED BACK to us at [phone] for Medicare purposes. Please let me know if there are questions or concerns regarding this plan of care. Physician Signature: Date: <Electronically signed by Cesilia Jang DPT> 12/23/16 0733 CC: Sole Banegas DO ELR Signed For Medicare only, by signing this I certi fy the plan of care. Physicians Signature Date 24-Oct-2014 Operative Report Result: Comments: See Note; NOTES: [facility] Medical Records Department [address] [facility] [address] Operative Report MR#: [id number] Acct: [id number] Name: YURI LOVE Rep #: [id number] : 1980 34 From: Jesus Sosa MD PCP: Sole Banegas DO Status: REG [facility] DATE OF SERVICE: 10/24/2014 DATE OF SERVICE: October 24, 2014 SURGEON: Nnamdi EvansIA: Jasmine Waters TYPE OF ANESTHESIA: General endotracheal. [...] Bilateral fallopian tubes. Jesus Sosa MD T: NTS JOB: [id number] 10/24/14 1115 <Electronically signed by Jesus Sosa MD> Date Jesus Sosa MD CC: Jesus Sosa MD; Sole Banegas DO Date Dictated: 10/24/14835 Date Transcribed: 10/24/14835 [employer] Back Feeder: Signed 24-Oct-2014 Discharge Instruction Result: Comments: See Note; NOTES: [facility] Medical Records Department [address] [place] [address] Instructions for Home/Discharge Instructions 10/24/14 0733 MR#: [id number] Acc t: [id number] Name: YURI LOVE Rep #: [id number] : 1980 34 From: Jesus Sosa MD PCP: Sole Banegas DO Status: REG [facility] Discharge Activity: Return to Normal Activity, May [...] Follow Up With: Selena Sosa hn - [phone] When: 2-3 weeks 10/24/14 0735 <Electronically signed by Jesus Sosa MD> Date [...] smoker Vital Signs Date Test Result Details 07-Sjq-13772:13 Pulse 66 /min Comments: Pattern: Regular Respiration [...] kg/m2 Body Surface Area Calculated 1.68 m2 :08 Pulse 64 /min Comments: Pattern: Regular Respiration [...] kg/m2 Body Surface Area Calculated 1.66 m2 42-Zop-546734:33 Temperature 97.9 f Comments: Method: Oral Pulse [...] Arm; Cuff Size: Standard Weight 125.0625 lb 75-Fvx-905697:25 Temperature 98.2 f Comments: Method: Oral Pulse [...] Height 0 in Head Circumference 0.00 cm :08 Pulse 64 /min Comments: Pattern: Regular Respiration [...] 0.00 cm Results Date Description Value Details 34-Loy-653769:00 ,Urine Comments: [facility] [address] [place], [address] HCGUQUAL Negative {Negative} Comments: Very dilute urine specimens, as indicated by a low specificgravity, may not contain phlebotomy services representative levels of hCG.If is still suspected, a first morning urinespecimen should be collected 48 hours later and tested. (Normal) 79-Exe-62778:00 GALLBLADDER See Note (Normal) Comments: [facility] [address] [place], [place], [address] Comments: Patient: YURI LOVE : 1980 (37/F) Acct Num: [id number] Phys: Giselle BAPTISTE,Gaston Unit Num: [id number] Loc: [facility] Specimen: [id number] Received: 08/15/18 150 Spec Type: GA LLBLADDE TISSUES 1 TISSUES: [...] node measuring 1.3 cm in greatest dimension. Radio Dispatcher sections from the gallbladder wall, cystic duct and entire possible lymph node are submitted in one cassette. / SJ:arley 08/15/18 TC:3 CPT: 55504 HEADER OPERATION: Laparoscopic cholecystectomy PRE-OP DIAGNOSIS: Acute cholecystitis without obstruction; cholelithiasis, right upper quadrant pain TISSUE SUBMITTED: Gallbladder MICROSCOPIC DESCRIPTI ON Slides are reviewed. MICROSCOPIC DIAGNOSIS Gallbladder, cholecystectomy: Chronic cholecystitis and cholelithiasis. AM:arley 08/16/18 Signed Johnathon Menendez 08/16/18 <signature on file> 70-Qnj-57021:20 Troponin-I Comments: 'TROP' Serial specimen #1, #2 or #3: [address] [place] [address] [address] [place], [place], [address] TROPONIN-I < 0.015 ng/mL (Normal) Comments: TROPONIN-I EXPECTED VALUES <0.045 Negative 0.045 - 0.590 Consistent with Cardiac Damage > OR = 0.600 Critical Value Not every elevated troponin is indicative of [place]. T hesevalues should be used with clinical judgement in examiningthe patient's clinical picture for diagnosis. To establisha diagnosis of [place] versus myocardial injury, there must be ademonstrated rise and/ or fall in the troponin values, inaddition to ischemic symptoms, EKG changes, new regionalwall motion abnormality, and/or angiographical evidence. PLEASE NOTE: REFERENCE RANGES EDITED 04/03/1814-Jun-201809-Ddg-551818:20 Basic Metabolic Profile (BMP) Comments: [facility] [address] [place], [place], [address] GAP 5 (Normal) Range: 5-15 CO2 30.0 [...] A.D.A. criteria.Please note revised GLUCOSE reference range /02/2018. 84-Pum-537611:20 CBC W/Diff, Automated Comments: [facility] [address] [place], [place], [address] Absolute Lymph 1.70 {X10_3/ul} (Normal) Range: 0.83-4.51 [...] 4.2-5.4 WBC 6.3 K/mm3 (Normal) Range: 4.4-11.0 20-Qsg-603308:20 Troponin-I Comments: [facility] [address] [place], [address] TROPONIN-I < 0.015 ng/mL (Normal) Comments: TROPONIN-I EXPECTED VALUES <0.045 Negative 0.045 - 0.590 Consistent with Cardiac Damage > OR = 0.600 Critical Value Not every elevated troponin is indicative of [place]. T hesevalues should be used with clinical judgement in examiningthe patient's clinical picture for diagnosis. To establisha diagnosis of [place] versus myocardial injury, there must be ademonstrated rise and/ or fall in the troponin values, inaddition to ischemic symptoms, EKG changes, new regionalwall motion abnormality, and/or angiographical evidence. PLEASE NOTE: REFERENCE RANGES EDITED 04/03/1802-May-201766-Ady-500483:16 Throat Culture (59480) Comments: PERFORMED BY: [facility] [address] [facility] [id number] Information: NO NASO AT UPLOAD SRC:TH Result 1 RRF (Normal) Comments: Routine respiratory jeanne Upper Respiratory Culture Final report (Normal) ENDOMETRIAL BX/CURETTINGS See Note (Normal) Comments: [facility] [address] [place], [address] 6:00 Comments: Patient: YURI LOVE : 1980 (36/F) Acct Num: [id number] Phys: Jesus Sosa MD Unit Num: [id number] Loc: [facility] Specimen: [id number] Received: 10/22/161656 Spec Type: EN DOM BX/C TISSUES TISSUES: COMMENT A. Immunohistochemistry ([id number]) for surrogate HPV marker (p16) will be [...] one cassette. / AM:arley 10/25/16 TC:3 CPT: 32173 x2 HEADER OPERATION: Colposcopy PRE-OP DIAGNOSIS: LGSIL [...] of dyspla zoila. AM:arley 10/26/16 Signed Johnathon [facility] 10/27/16 <signature on file> IMMUNOHISTOCHEMISTRY See Note (Normal) Comments: [facility] [address] [place], [place], [address] :00 Comments: Patient: YURI LOVE : 1980 (36/F) Acct Num: [id number] Phys: Ian BAPTISTE,[facility] Unit Num: [id number] Loc: [facility] Specimen: [id number] Received: 10/26/161222 Spec Type: I MMUNO TISSUES TISSUES: SPECIMEN INFORMATION: Tissue Source: A - Cervical biopsy four-quad Clinical Info: LGSIL Specimen Number: [id number] CPT code: 31515, 92326 METHODOLOGY : Deparaffinized sections of prefer/formalin-fixed tissue [...] and their performance characteristics dete rmined by [facility]. They may not have been cleared or approved by the U.S. Food and Drug Administration. The FDA has determined that such clearance or approval is not nece ssary. INTERPRETATION: A. Cervix, four quad biopsy: Consistent with mild squamous dysplasia, DIANNA I (LGSIL). AM:arley 10/27/16 PHYSICIAN AND INSTITUTION [address] [address] Signed Johnathon [facility] 10/27/16 <signature on file> 20-Sep-2016 CERVICAL See Note (Normal) Comments: [facility] [address] [place], [address] 15:30 Comments: Patient: YURI LOVE : 1980 (35/F) Acct Num: [id number] Phys: Ian BAPTISTE,Jesus Unit Num: [id number] Loc: [facility] Specimen: [id number] Received: 09/20/162144 Spec Type: CERV TISSUES TISSUES: GROSS DESCRIPTION Received is one container labeled with the patient's name and designated cervical polyp. The specimen consists of multiple fragments of trejo mucoid tissue that in aggregate measure 2 x 0.6 x 0.1 cm. The specimen is totally submitted in one cassette. / SJ:arley 09/21/16 TC:1 CPT:39520 HEADER OPERATION: Cervical polypectomy PRE-OP MANSI GNOSIS: N84.1 TISSUE SUBMITTED: Cervical polyp MICROSCOPIC DESCRIPTION Slides are reviewed. MICROSCOPIC DIAGNOSIS Cervical polyp, polypectomy: Fragments of benign endocervical poly p, inflamed. AM:arley 09/22/16 Signed Johnathon [facility] 09/22/16 <signature on file> 53-Wkv-739339:30 PAP I-G w/ Reflex to HR Comments: CYTOLOGY INFORMATION:- CLINICAL INFORMATION:- DATE LMP/MENOPAUSE: [id number]- COLLECTION VIAL: Thin Prep Vial- [employer] OFFICER SOURCE: CERVICAL/ENDOCERVICAL- COLLECTION TECHNIQUE: BRUSH/SPATULASpecimen Comment: CO-CW HPV [id number] Comment: No. of containers..01 CYTYC Thin Prep [facility]ialLab[facility] (refer to report for specific site)refer to report for address and phone number HPV HC,HGH Positive Comments: This high-risk HPV test detects thirteen high- risk types(16/18/31/33/35/39/45/51/52/56/58/59/68) withoutdifferentiation.Performed at: [address] (Abnormal) [facility] [place] [id number] Director: Fatimah Glass MD, Phone: [phone] at: - [facility] [address] Logan StreetzaLake Worth, [place] [id number] Director: Crystal Llanes MD, Phone: [phone] formed at: =G - [facility] [address] [facility] [place], [place] [id number] Director: Crystal Llanes MD, Phone: [phone] HPV RFLX Comment (Normal) Comments: See below [...] Newsome MD, Pathologist PERFORM Comment (Normal) Comments: Moira Enriquez, Resource Paraprofessional ADEQ Comment (Normal) Comments: Satisfactory for evaluation. Endocervical and/or squamous metaplasticcells (endocervical component) are present. DIAGN Comment Comments: EPITHELIAL CELL ABNORMALITY.LOW-GRADE SQUAMOUS INTRAEPITHELIAL LESION (LGSIL); MILD DYSPLASIA ISPRESENT. (Abnormal) 89-Pjl-528240:30 Culture, Wound Comments: [facility] [address] [place], [address] CUW See Note (Normal) Comments: Gram StainGram Stain Rare Red Blood Cells Rare Red Cell Stroma No organisms seen Wound CultureNo growth aerobically. 20-Gtt-980097:30 MRSA Wound DNA by PCR Comments: Specimen Source? [facility] [address] [place], [address] SA RESULT NEGATIVE (Normal) MRSA RESULT Negative (Normal) 54-Ryt-995145:57 URINE MICHI CULTURE-RENE COL Comments: PATIENT NOT FASTINGPERFORMED BY: [facility] Dbpqkq4903 [facility] [id number] Information: SRC:[facility] [id number] COUNT (07286) Antimicrobial MIHEAD (Normal) Comments: S = Susceptible; [...] pneumoniae (Abnormal) Urine Final report Culture,Comprehensive (Abnormal) 29-Trh-625380:35 Urinalysis, Office (31586) UA - LEUKOCYTE ESTERASE Moderate (Normal) UA - NITRITE Negative (Normal) URINE UROBILINGN RENE TIMED Normal mg/dL (Normal) UA - PROTEIN Negative mg/dL (Normal) UA - PH 7.0 (Normal) Comments: 6.5 UA - BLOOD Negative (Normal) UA - SPECIFIC GRAVITY 1.025 (Normal) UA - KETONES Negative mg/dL (Normal) UA - BILIRUBIN Negative (Normal) UA - GLUCOSE Negative (Normal) 25-Jul-20158:08 Rapid Strep Test, Office (76960) Rapid Strep Test, Negative (Normal) Office 24-Oct-20147:43 FALS (Normal) Comments: Patient: YURI LOVE : 1980 (34/F)Acct Num: [id number] Phys: Bina Sosa MD Num: [id number] Loc: SDCSpecimen: [id number] Received: 10/24/141102Spec Type: FALL TUBESTISSUEST ISSUES:GROSS DESCRIPTIONReceived is one [...] each cassette containingone segment of tube. / SJ: 10/24/14 TC:4CPT: 31757 [id number]: Bilateral partial salpingectomyPRE-OPERATIVE DIAGNOSIS: D esires permanent sterilizationTISSUE SUBMITTED: Bilateral fallopian tube segmentsMICROSCOPIC DIAGNOSISBilateral fallopian tube segments:Completely transected segments of fallopian tubes including fimbri al end, nopathologic diagnosis.SJ: 10/25/14Signed Sunil Ayad 10/25/14<signature on file> 62-Pbn-635731:33 CBC MPV 9.8 fL (Normal) Range: 6.2-12.0 [...] 4.2-5.4 WBC 6.1 K/mm3 (Normal) Range: 4.4-11.0 01-Pow-996789:33 PREGS tPREGS NEGATIVE {Negative} (Normal) Range: 0-9 Nonpreg tHCGT < 1 m[iU]/mL (Normal) 78-Uyp-859689:33 TSPAT Comments: Surgery Date: 10/24/14Hx of Preganancy [...] (Normal) Range: 0.358-3.74 :41 Urine Test, Office (05087) Urine Test, Office Negative (Normal) Comments: aw [...] Plan of Care Name Dates Details Instructions Chest pain, atypical : Reviewed Lab Indication: Chest pain, atypical Chest pain, atypical : Reviewed Diagnostic Tests Indication: Chest pain, atypical Chest pain, atypical : Reviewed Project Control Officer Letter Indication: Chest pain, atypical Sore throat [...] sinusitis, unspecified Planned Observations JAYLYN (ANTINUCLEAR ANTIBODY) (13450)Indication: Weight loss On: :57 Request C-REACTIVE PROTEIN (84883)Indication: Weight loss On: :57 Request SED RATE ERYTHROCYTE (62663)Indication: Weight loss On: :57 Request TSH ([id number])Indication: Weight loss On: :57 Request METABOLIC PANEL, COMPREHENSIVE ([id number])Indication: Weight loss On: :57 Request LIPID PANEL ([id number])Indication: Weight loss On: :57 Request CBC WITH MANUAL DIFF ([id number])Indication: Weight loss On: :57 Request LIPID PANEL ([id number])Indication: Migraine On: [id number] Request Planned Procedures ULTRASOUND - GALL BLADDER ([id number])By: Sole Banegas DO On: 19-Jun-2018 Intent Sole Banegas DO Eprescribed prescriptions ([id number])By: Sole Banegas DO On: 09-Apr-2014 Intent Sole Banegas DO Instructions Name Dates Details BMI 22.0-22.9, adult : How to access [...] Dysuria : Patient Instructions Indication: Dysuria Encounters Phone Encounter On: 23-Aug-2018 9:44 Encounter Diagnosis: [...] Encounter Diagnosis: Migraine (346.80) [facility]; fausto guarantor
== END ==
PROVIDERS: Visit Provider Obstetrics & Gynecology
DX: Z12.31 Encounter for screening mammogram for malignant neoplasm of breast (principal)
CPT/HCPCS: 77063; 77067

== ENCOUNTER → 2018-11-08 16:04 | Outpatient (CLI) | payer OTHER, SELFPAY ==
--- NOTE | 2018-11-08 | IMM_PTH ---
PATIENT: YURI LOVE LOC: [facility] U#:[id number] AGE/SX: 45/F ROOM: RE11/08/[address]: Dr. Jesus Sosa MD : 1980 BED: DIS: SPEC #: [id number] RECD: 11/10/18 14:30 STATUS: SHANE REMichael #: [id number] SAJI: 11/08/18 00:[address]: Jesus Sosa DEPT: IMMUNOHISTOCHEMISTRY RECD BY: Ninfa Guevara Tissues: A - Uterine cervix, NOS Procedures: p16 (initial) KI-67 (add) PHYSICIAN & INSTITUTION [place] [address] SPECIMEN INFORMATION: Tissue Source: A - Cervical biopsy Clinical Info: R87.610, R87.810 Specimen Number: [id number] CPT code: 62887, 18249 METHODOLOGY: Deparaffinized sections of prefer/formalin-fixed tissue or PAP/DQ stained slides are incubated with monoclonal/polyclonal antibodies/oligonucleotide probes. Localization is made via biotin free immunoperoxidase method. Appropriate controls are performed and reacted as expected. Results on target cell population are indicated in the following table: RESULTS: ANTIBODY / CLONE RESULT Block A P16 (E6H4) negative Ki-67 (30-9) negative These tests were developed and their performance characteristics determined by [facility]. They may not have been cleared or approved by the U.S. Food and Drug Administration. The FDA has determined that such clearance or approval is not necessary. INTERPRETATION: A. Cervical biopsy: Focal mild squamous dysplasia. KAYLA:arley 11/13/18
--- NOTE | 2018-11-08 | CER_PTH ---
[facility]URI [id number] AGE/SX: 45/F ROOM: RE11/08/[address]: Dr. Jesus Sosa MD : 1980 BED: DIS: SPEC #: [id number] RECD: 11/08/18 15:46 STATUS: SHANE ROY #: [id number] SAJI: 11/08/18 00:[address]: Jesus Sosa DEPT: SURGICAL PATHOLOGY RECD BY: Carlos Robert Tissues: A - Uterine cervix, NOS B - Endocervical Procedures: Surgery Specimen Level IV HEADER OPERATION: Colposcopy with biopsy PRE-OP DIAGNOSIS: R87.610, R87.810 TISSUE SUBMITTED: A - Cervical biopsy, B - ECC MICROSCOPIC DIAGNOSIS A. 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 Focal chronic inflammation. See comment. B. ECC: Fragments of benign endocervical epithelium and endocervical mucosa with chronic inflammation, blood and mucous, negative for dysplasia. KAYLA:arley 11/10/18 COMMENT A. Results of Immunohistochemistry ([id number]) for surrogate HPV marker (p16) will be reported separately. Please make reference to previous specimen ([id number]) four quadrant cervical biopsy with diagnosis of mild squamous dysplasia. MICROSCOPIC DESCRIPTION Slides are reviewed. GROSS DESCRIPTION A - Received in fixative is one container labeled with the patient's name and designated cervix biopsy. The specimen consists of multiple irregular fragments of light trejo soft tissue that in aggregate measure 0.5 x 0.3 x 0.1 cm. The specimen is totally submitted in one cassette. B - Received in fixative is one container labeled with the patient's name and designated ECC. The specimen consists of mucoid material aggregating to 1 x 1 x 0.1 cm. The specimen is submitted in its entirety for cell block preparation. / AM:arley 11/09/18 TC:3 CPT: 41574 x2
== END ==
PROVIDERS: Referring Provider Obstetrics & Gynecology; Visit Provider Obstetrics & Gynecology
DX: R87.610 Atypical squamous cells of undetermined significance on cytologic smear of cervix (ASC-US) (principal); R87.810 Cervical high risk human papillomavirus (HPV) DNA test positive
CPT/HCPCS: 88305; 88341; 88342

== ENCOUNTER → 2019-11-08 14:52 | Outpatient (CLI) | payer OTHER, SELFPAY ==
[2018-08-15 10:31] VITALS: BMI 22.7
[2019-11-13 14:37] LABS: HPV Reflexed? NOT INDICATED
== END ==
PROVIDERS: Referring Provider Obstetrics & Gynecology; Visit Provider Obstetrics & Gynecology
DX: Z12.4 Encounter for screening for malignant neoplasm of cervix (principal)
CPT/HCPCS: 88175; G0145

== ENCOUNTER → 2019-12-04 07:56 | Outpatient (CLI) | payer OTHER, SELFPAY ==
--- NOTE | 2019-12-04 07:59 | BI_ITS ---
MAMMOGRAPHY - BILATERAL SCREENING REASON FOR EXAM: Female, 39 years old. Routine annual screening examination. PERTINENT HISTORY: Non-contributory. TECHNIQUE: Digital bilateral breast sean (3D mammographic acquisition) in the CC and MLO projections. 2-D mediolateral oblique (MLO) and craniocaudad (CC) views of both breasts were obtained. CAD: Full Field Digital Mammography with Computer Added Detection was performed. COMPARISON: Comparison is made with prior study dated October 17, 2018. FINDINGS: Breast Composition: The breasts are extremely dense, which lowers the sensitivity of mammography. There are no dominant masses or suspicious calcifications. No other significant abnormalities are identified. There has been no significant change since the prior study. BI/SCREEN MAMM (CAD) W/SEAN BILAT IMPRESSION: Stable bilateral screening mammogram. Yearly follow-up mammogram recommended. (A) ASSESSMENT CATEGORY: BIRADS Category 1: Negative. A letter regarding these results will be sent to the patient by the facility within 30 days. Approximately 10% of breast cancers are not detected by mammography. A normal mammogram should not delay biopsy of a clinically suspicious abnormality. [id number] Electronically Signed: Caleb Ramirez, at 9:54 EST , Service support ,
== END ==
PROVIDERS: Family Provider Internal Medicine; PCP Internal Medicine; Referring Provider Obstetrics & Gynecology; Visit Provider Obstetrics & Gynecology
DX: Z12.31 Encounter for screening mammogram for malignant neoplasm of breast (principal)
CPT/HCPCS: 77063; 77067

== ENCOUNTER → 2020-10-06 11:56 | Outpatient (CLI) | payer OTHER, SELFPAY ==
[2018-08-15 10:31] VITALS: BMI 22.7
[2020-10-06 15:42] LABS: Absolute Lymphocyte Count 1.21 X10^3/uL (0.83-4.51); Absolute Neutrophil Count 4.1 X10^3/uL (2.0-7.7); Basophil# 0.02 X10^3/uL; Basophil% 0.4 % (0-1); Eosinophil# 0.04 X10^3/uL; Eosinophils% 0.7 % (0-5); Hematocrit 39.4 % (37-47); Hemoglobin 12.7 g/dL (12.0-15.0); Lymphocyte # 1.21 X10^3/ul (4.0); Lymphocyte % 21.3 % (19-41); Mean Corp Hgb Conc 32.2 g/dL (32-36); Mean Corpuscular Hgb 31.4 pg (27.0-32.0); Mean Corpuscular Volume 97.5 fL (81-99); Mean Platelet Vol. 9.6 fl (6.2-12.0); Monocyte# 0.28 X10^3/uL; Monocyte% 4.9 % (0-10); NRBC Flagged by Analyzer 0 % (0-5); Neutrophil # 4.12 X10^3/uL (2.7-7.7); Neutrophil % 72.3 % (47-70); Platelet Count 273 K/mm3 (150-450); RBC Distribution Width CV 12.3 % (11.6-14.6); RBC Distribution Width SD 44.3 fl (35.1-43.9); Red Blood Count 4.04 M/mm3 (4.2-5.4); White Blood Count 5.7 K/mm3 (4.4-11.0)
[2020-10-06 16:14] LABS: ALB/GLOB Ratio 0.8 RATIO (0.9-2.4); AST(SGOT) 17 U/L (15-37); Alanine Aminotransfer ALT/SGPT 17 U/L (13-56); Albumin, Serum 3.4 g/dL (3.2-5.0); Alkaline Phosphatase 78 U/L (45-117); Anion Gap 5 (5-15); BUN 16 mg/dL (7-18); Calcium,Total 8.4 mg/dL (8.5-10.1); Chloride 107 mmol/L (98-107); Cholesterol 252 mg/dL (200); Creatinine, Serum 0.64 mg/dL (0.55-1.02); EST Glomerular Filtration Rate 108 mL/min (>60); Est Glom Filt Rate - Afr Amer 131 mL/min (>60); Globulin 4.5 g/dL (2.2-4.2); Glucose 76 mg/dL (74-106); High Density Lipoprotein 75 mg/dL; Potassium 3.7 mmol/L (3.5-5.1); Protein, Total 7.9 g/dL (6.4-8.2); Sodium Level 140 mmol/L (136-145); Thyroid Stim Hormone (TSH) 1.81 uIU/mL (0.358-3.74); Triglycerides 159 mg/dL; Very Low Density Lipoprotein 32 mg/dL (5-40)
== END ==
PROVIDERS: PCP Internal Medicine; Referring Provider Internal Medicine; Visit Provider Internal Medicine
DX: R19.7 Diarrhea, unspecified (principal); N92.6 Irregular menstruation, unspecified; Z13.220 Encounter for screening for lipoid disorders
CPT/HCPCS: 36415; 80053; 80061; 84443; 85025

== ENCOUNTER → 2020-10-10 12:15 | Outpatient (CLI) | payer OTHER, SELFPAY ==
--- NOTE | 2020-10-10 12:19 | US_ITS ---
STUDY: ULTRASOUND OF THE FEMALE PELVIS - COMPLETE REASON FOR EXAM: Female, 40 years old. ABNORMAL MENSES LMP: Early September TECHNIQUE: Transabdominal and Transvaginal TECHNICAL QUALITY: Adequate. COMPARISON: None. FINDINGS: The uterus is anteverted and is in a midline position. The uterus measures 8.6 cm x 4.5 cm x 3.3 cm. Normal uterine cervix. The endometrium measures 5 mm in thickness, and is hyperechoic. There is no demonstrated endometrial mass. There is no demonstrated myometrial mass. I.U.D. - The patient does not have an I.U.D. The right ovary is non-visualized. The left ovary is visualized. The left ovary measures 1.6 cm x 1.2 cm x 0.9 cm. There is no left ovarian cyst or ovarian mass. There is no visualized left adnexal mass or complex lesion. There is normal arterial and normal venous vascularity. There is no fluid in the cul-de-sac. The pre void volume of the bladder was 562.4 ml. Polycystic ovary disease: No. US/Transvaginal Non- IMPRESSION: Normal female pelvis. Electronically Signed: Caleb Ramirez, at 15:11 EST , Service support ,
== END ==
PROVIDERS: PCP Internal Medicine; Referring Provider Internal Medicine; Visit Provider Internal Medicine
DX: N92.6 Irregular menstruation, unspecified (principal)
CPT/HCPCS: 76830

== ENCOUNTER → 2020-11-12 | Outpatient (CLI) | payer OTHER, SELFPAY ==
[2018-08-15 10:31] VITALS: BMI 22.7
--- NOTE | 2020-11-12 | EMB_PTH ---
PATIENT: YURI LOVE LOC: [facility] U#:[id number] AGE/SX: 40/F ROOM: RE11/12/[address]: Dr. Jesus Sosa MD : 1980 BED: DIS: 11/12/2020 SPEC #: [id number] RECD: 11/12/20 14:59 STATUS: SHANE REMichael #: [id number] SAJI: 11/12/20 00:[address]: Jesus Sosa DEPT: SURGICAL PATHOLOGY RECD BY: Darren Parr ENTERED: 11/13/20 07:34 SP TYPE: ENDOM BX/C MOHSEN DR: Dr. Sole Banegas, DO Tissues: Endometrium, NOS Procedures: Surgery Specimen Level IV HEADER OPERATION: Endometrial biopsy PRE-OP DIAGNOSIS: Menorrhagia TISSUE SUBMITTED: Endometrial biopsy MICROSCOPIC DIAGNOSIS Endometrium, biopsy: Fragments of benign superficial transition endometrium with stromal hemorrhage, recent. Rare strips of benign superficial endocervix. AM:arley 11/17/20 MICROSCOPIC DESCRIPTION Slides are reviewed. GROSS DESCRIPTION Received in fixative is one container labeled with the patient's name and designated EMB. The specimen consists of multiple fragments of hemorrhagic soft tissue that in aggregate measure 1.5 x 0.5 x 0.1 cm. The specimen is totally submitted in one cassette. / SJ:arley 11/13/20 TC:5 CPT: 52640
[2020-11-18 16:21] LABS: HPV Reflexed? NOT INDICATED
== END | disposition home or self-care (01) ==
LOC: LABSPEC 13:27
PROVIDERS: PCP Internal Medicine; Visit Provider Obstetrics & Gynecology
DX: Z12.4 Encounter for screening for malignant neoplasm of cervix (principal); N92.0 Excessive and frequent menstruation with regular cycle
CPT/HCPCS: 88175; 88305; G0145

== ENCOUNTER 2020-12-01 08:51 | Day surgery (SDC) | payer OTHER, SELFPAY ==
[2020-11-26 12:48] LABS: Hematocrit 39.8 % (37-47); Hemoglobin 12.8 g/dL (12.0-15.0); Mean Corp Hgb Conc 32.2 g/dL (32-36); Mean Corpuscular Volume 96.4 fL (81-99); Mean Platelet Vol. 9.3 fl (6.2-12.0); Platelet Count 275 K/mm3 (150-450); RBC Distribution Width CV 12.5 % (11.6-14.6); RBC Distribution Width SD 44.4 fl (35.1-43.9); Red Blood Count 4.13 M/mm3 (4.2-5.4); White Blood Count 5.4 K/mm3 (4.4-11.0)
[2020-11-26 12:49] LABS: Prothrombin Time (Protime)PT. 12.4 SECONDS (11.7-14.9)
[2020-11-26 12:50] LABS: Partial Thromboplast Time 28.7 Seconds (24.1-36.2)
[2020-11-26 13:25] LABS: Thyroid Stim Hormone (TSH) 2.06 uIU/mL (0.358-3.74)
--- NOTE | 2020-11-30 17:18 | PCM.HP.BLA ---
History and Physical Date of Admission: 12/01/20 Surgical History and Physical Gauri Mahoney, a 40 year old female 2 0 1 0 2, presents for HTA, Hysteroscopy and D and C on December 01, 2020 at 10:30. -- Menorrhagia -- Pt reports menses that have increased in length. LMP lasted 10 days and started as spotting while still taking [employer], once she started sugar pills her bleeding increased. Heavy prolonged menses which began months ago. Gauri claims it started gradually It occurs with menses. It is located in the vagina. Additional comments are: normal pelvic u/s in 10/[address] Proctor office. EMBx benign. MEDICATIONS HISTORY: Current medications prescribed by our practice are: 1. Mircette (28) 0.15 mg-0.02 mg (21)/0.01 mg (5) tablet, One pill by mouth once a day Patient is also takin. multivitamin tablet ALLERGIES: NKDA Infections - Chicken pox Illnesses - migraines, acne Accidents - no injuries of consequence Hospitalizations - Childbirth and see surgery kidney stones, 11/01; Review of Systems: GENERAL - Denies fever, or chills SKIN - Denies skin changes EYES - Denies visual changes EARS - Denies difficulty hearing NOSE - Denies nasal congestion or bleeding MOUTH - Denies sore throat or difficulty swallowing NECK - Denies pain or swelling RESPIRATORY - Denies shortness of breath or wheezing CARDIOVASCULAR - Denies palpitations or chest pain GASTROINTESTINAL - Denies nausea, vomiting, diarrhea, constipation GENITOURINARY - Denies dysuria, frequency of urination, incontinence of urine MUSCULOSKELETAL - Denies joint or muscle pain NEUROLOGICAL - Denies localized numbness or weakness PSYCHIATRIC - Denies depression or anxiety ENDOCRINE - Denies heat or cold intolerance, weight loss or gain HEMATO-IMMUNOLOGIC - Denies excesive bleeding with cuts SOCIAL HISTORY: Alcohol Use - RARELY Smoking - Never Diet - balanced Diet Lifestyle - moderate stress lifestyle and Exercise - walking Seat Belt Use - always Employer - [employer] 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 Paternal Grandfather: DM II and Leukemia. MENSTRUAL HISTORY: LMP Known?- DefiniteAmount/Duration - 7-14 days, Regularity - Regular, Frequency - monthly days, LMP - 11/14/20, Age Onset Menarche - 12 PAST PREGNANCIES: Total Pregnancies - 3; Full Term Pregnancies - 2; Premature - 0; Abortions, Induced - 0; Abortions, Spontaneous - 1; Ectopics - 0; Multiple Births - 0; Living Children - 2 SURGICAL HISTORY: 1. [place] Teeth removed 97' 2. 07', [place] Removed 3. 08/17/2018 cholecystectomy ; Dr. Desai 4. 09/27/2014 [facility] eye surgery 5. 10/24/2014 Bilateral Tubal occlusion with filshie clips and distal salpingectomy ; Jesus Sosa M.D. PHYSICAL EXAM BP- 110/68 Sitting, Right arm, regular cuff Weight- 156.55233 lbs Height- 66 inch BMI:25.23 CONSTITUTIONAL - NAD, well nourished, and well developed SKIN - No rash, lesions, or ulcers HEENT - Normocephalic, PERRLA, EOMI NECK - No nodes, no nuchal rigidity and thyroid normal size and texture LYMPH NODES - Palpation of lymph nodes in neck and groins within normal limits LUNGS - CTA x2 without wheezes, crackles or rales CARDIAC - Regular rate and rhythm without rubs, murmurs, or gallops BREAST - No dominant masses, no tenderness, no axillary adenopathy, no nipple discharge, no skin changes ABDOMEN - Without hepatosplenomegaly, distention, masses, rebound, or guarding; normal bowel sounds; no hernias EXTREMITIES - No edema or calf tenderness NEUROLOGICAL - Cranial nerves II-XII grossly intact PSYCHIATRIC - A and O to time, place, person, mood and affect External Genital Vagina - non-tender without lesions Urethra/Urethral Meatus - non-tender Bladder - non-tender Vagina - vaginal connelly are pink and moist without loss of rugae and no evidence of atropy Cervix - without cervical motion tenderness and has normal size and features without evident lesions Uterus - multiparous size 6 cm & wt 75-125 g Adnexa - clear without masses or tenderness ASSESSMENT/PLAN: Premenopause Menorrhagia EMBx and ultrasound OK. Discussed options for treatment and pt desires proceeding with D and C, H/S, and HTA. Discussed RBAs and all questions answered.
--- NOTE | 2020-12-01 | EMB_PTH ---
PATIENT: YURI LOVE [place] [facility] [place][id number] AGE/SX: 40/F ROOM: RE12/01/[address]: Dr. Jesus Sosa MD : 1980 BED: DIS: 12/01/2020 SPEC #: [id number] RECD: 12/01/20 12:05 STATUS: SHANE MANUELA #: [id number] SAJI: 12/01/20 00:[address]: Jesus Sosa DEPT: SURGICAL PATHOLOGY RECD BY: Darren Parr ENTERED: 12/01/20 12:05 SP TYPE: ENDOM BX/C MOHSEN DR: Dr. Sole Banegas, DO Tissues: Endometrium, NOS Procedures: Surgery Specimen Level IV HEADER OPERATION: Hysteroscopy, D & C hydroablation PRE-OP DIAGNOSIS: Menorrhagia TISSUE SUBMITTED: Endometrial curettings MICROSCOPIC DIAGNOSIS Endometrial curettings: Fragments of inactive endometrium with glandular and stromal breakdown. Fragments of benign ecto- and endocervical epithelium. Fragments of superficial myometrium. KAYLA:arley 12/02/2020 COMMENT Please make reference to previous specimen ([id number]) endometrium, biopsy with diagnosis of fragments of benign superficial transition endometrium with stromal hemorrhage, recent. MICROSCOPIC DESCRIPTION Slides are reviewed. GROSS DESCRIPTION Received in fixative is one container labeled with the patient's name and designated endometrial curettings. The specimen consists of multiple fragments of hemorrhagic soft tissue that in aggregate measure 3 x 2.5 x 0.3 cm. The specimen is totally submitted in one cassette. / KAYLA:arley 12/01/20 TC:5 CPT: 76948
[2020-12-01 09:13] VITALS: BP 107/67; PULSE 86; RESP 16; TEMP 38.2; O2SAT 100; BMI 25.5
[2020-12-01 09:17] LABS: Internal QC Validated? YES +Cl - CLEAR BKGD; Pregnancy, Urine Negative Negative; Record Kit Lot#,Urine Preg 42077
[2020-12-01] MEDS: Lactated Ringers 1,000 ML 100 ML IV (09:25)
[2020-12-01] MEDS: Cefotetan 2 GM in 0.9% NS 100 ML IV (09:54)
--- NOTE | 2020-12-01 09:54 | OP.PCM_ITS ---
Report of Operation Date of Procedure: 12/01/20 Pre-Operative Diagnosis: Menorrhagia Post-Operative Diagnosis: Menorrhagia Surgery/Procedure Performed:: Diagnostic Hysteroscopy, Dilation and Curettage, Hydrothermal Ablation Description of Surgical Findings:: 8 cm uterine cavity without polyps or fibroids. Type of Anesthesia:: General - LMA Anesthesiologist: Good Gee Specimen's removed: Endometrial curettings Estimated Blood Loss (mL): Minimal Fluids Replaced: Crystalloid Description of Procedure: Surgeon: Jesus Sosa MD, FACOG Indication: This is a 40 year old patient who has been having problems with extremely heavy menses. Conservative measures have not been helpful. Endome trial sampling was benign and pelvic ultrasound showed that ablation may be helpful. Pt has been counseled regarding the risks, benefits and alternatives of this procedure and all questions answered. She understands that only about half of patients will have amenorrhea after this procedure. Procedure: Patient taken to the operating room where after induction of general anesthesia the patient was prepped and draped in the usual sterile fashion. Bladder was drained of urine with a catheter. Anterior cervix grasped and cervix was dilated to about 17 Albanian size. Hysteroscopic hydrothermal ablation (HTA) unit was place in the cervix and the above findings were noted. HTA unit was removed and the uterus was gently curretted removing all contents. An HTA ablation cycle was then carried out at about 90 degrees Centigrade for 10 minutes with virtually no fluid loss during the procedure. After an appropriate cool down the HTA unit was removed with minimal bleeding noted. The patient tolerated the procedure well and was taken to the recovery room in satisfactory condition. Sponge, instruments and needle counts were all correct. There were no apparent complications of the surgery. Cefotan 2 gms IV was given prior to the procedure. Estimated Blood Loss: Minimal Specimen to Pathology: Endometrial Curettings Grafts/Implants Used: None - Complications None - Admit VTE Documentation VTE Present on Admission: Yes VTE Mechan Device Prophylaxis: SCD's
--- NOTE | 2020-12-01 09:59 | DCINST_ITS ---
Discharge Diet: No Restrictions Discharge Activity: Return to Normal Activity, May not drive while taking narcotic pain medications., May Shower, May Take a Tub Bath Call your doctor if you observe: Fever of 101 or Higher, Inability to urinate, Inability to have a bowel movement, Using more than one pad per hour Allergies/Adverse Reactions: Allergies No Known Allergies Allergy (Verified 12/01/20 09:10) Medications to take at Discharge desogestrel-e.estradiol 0.15 mg-0.02 mg(21)/e.estrad 0.01 mg(5) tablet 1 tab PO DAILY 07/17/18 Multivitamins,Therapeutic [Multivitamin] 1 tab PO DAILY 08/01/18 Oxycodone [Oxyir] 5 mg PO Q6H PRN PRN 7 Days #7 tablet 12/01/20 The following prescriptions were given: Oxycodone [Oxyir] 5 mg PO Q6H PRN PRN 7 Days #7 tablet PRN Reason: Pain Score 6-10 Transmission Status: Received by [facility] Primary Care Physician: Sole Banegas DO [Primary Care Provider] - Test Results: Test results from this visit will be discussed in further detail at your follow- up appointment, if applicable. Please Follow Up With: Jesus Sosa MD When: 3 to 4 weeks
[2020-12-01 10:42] VITALS: BP 101/66; BP 107/67; PULSE 77; RESP 16; TEMP 36.4; O2SAT 100
[2020-12-01 10:45] VITALS: BP 103/72; BP 107/67; PULSE 77; RESP 16; O2SAT 100
[2020-12-01 11:00] VITALS: BP 107/67; BP 107/72; PULSE 88; RESP 16; O2SAT 100
[2020-12-01 11:05] VITALS: BP 105/73; BP 107/67; PULSE 79; RESP 16; TEMP 36.3; O2SAT 100
[2020-12-01] MEDS: oxyCODONE 5 MG Tablet PO (11:27)
[2020-12-01 12:21] VITALS: BP 107/67; BP 128/79; PULSE 75; RESP 16; TEMP 37.2; O2SAT 100
== END 2020-12-01 12:32 | disposition home or self-care (01) ==
LOC: SDC 08:52 → AC 08:53
PROVIDERS: Anesthesiology; PCP Internal Medicine; Referring Provider Obstetrics & Gynecology; Visit Provider Obstetrics & Gynecology
PROC: 0U5B8ZZ Destruction of Endometrium, Via Natural or Artificial Opening Endoscopic (ICD-10-PCS; CPT 58563; principal; 2020-12-01 10:20)
DX: N92.0 Excessive and frequent menstruation with regular cycle (principal); Z20.822 Contact with and (suspected) exposure to COVID-19; K21.9 Gastro-esophageal reflux disease without esophagitis
CPT/HCPCS: 00952; 58563; 36415; 81025; 84443; 85027; 85610; 85730; 86850; 86900; 86901; 87426; 88305; C9803; J7120; J2405

== ENCOUNTER → 2020-12-09 13:24 | Outpatient (CLI) | payer OTHER, SELFPAY ==
[2020-12-01 09:13] VITALS: BMI 25.5
--- NOTE | 2020-12-09 13:26 | BI_ITS ---
MAMMOGRAPHY - BILATERAL SCREENING REASON FOR EXAM: Female, 40 years old. Routine annual screening examination. PERTINENT HISTORY: Non-contributory. TECHNIQUE: Digital bilateral breast sean (3D mammographic acquisition) in the CC and MLO projections. 2-D mediolateral oblique (MLO) and craniocaudad (CC) views of both breasts were obtained. CAD: Full Field Digital Mammography with Computer Added Detection was performed. COMPARISON: Comparison is made with prior examination dated 12/04/2019 and 10/17/2018. FINDINGS: Breast Composition: The breasts are extremely dense, which lowers the sensitivity of mammography. There are no dominant masses or suspicious calcifications. No other significant abnormalities are identified. There has been no significant change since the prior study. BI/SCRN MAMM (CAD)W/SEAN BILAT IMPRESSION: Stable bilateral screening mammogram. Yearly follow-up mammogram recommended. (A) ASSESSMENT CATEGORY: BIRADS Category 1: Negative. A letter regarding these results will be sent to the patient by the facility within 30 days. Approximately 10% of breast cancers are not detected by mammography. A normal mammogram should not delay biopsy of a clinically suspicious abnormality. [id number] Electronically Signed: Caleb Ramirez MD at 15:28 EST , Service support ,
== END ==
PROVIDERS: PCP Internal Medicine; Referring Provider Obstetrics & Gynecology; Visit Provider Obstetrics & Gynecology
DX: Z12.31 Encounter for screening mammogram for malignant neoplasm of breast (principal)
CPT/HCPCS: 77063; 77067

== ENCOUNTER → 2021-06-29 | Outpatient (CLI) | payer OTHER, SELFPAY ==
[2021-01-23 16:43] VITALS: BMI 25.2
[2021-06-29 16:02] LABS: Mucous, Urine 0 SEEN /hpf (<or=2+); Squamous Epithelial Cells - UA 0 SEEN /hpf (5-10)
[2021-06-29 16:10] LABS: Color, Urine Yellow (Yellow); Glucose, Dipstick Normal (Normal); Ketone-Dipstick Negative (Negative); Leukocyte Esterase-Dipstick 100 /ul (Negative); Nitrite-Dipstick Negative (Negative); Occult Blood-Urine 25 /ul (Negative); Protein-Dipstick Negative (Negative); Specific Gravity, Urine 1.025 (1.002-1.030); Urine Bilirubin Dipstick Negative (Negative); Urine Clarity Clear (Clear); Urine Urobilinogen Normal (Normal)
[2021-06-29 16:21] LABS: Bacteria RARE /hpf (None Seen); Red Blood Cells-Urine 0-5 SEEN /hpf (0-5); White Blood Cells 5-10 SEEN /hpf (0-5)
== END | disposition home or self-care (01) ==
LOC: LABSPEC 15:26
PROVIDERS: PCP Internal Medicine; Referring Provider Physician Assistant; Visit Provider Physician Assistant
DX: R30.0 Dysuria (principal)
CPT/HCPCS: 81001; 87086; 87088

== ENCOUNTER → 2021-09-02 | Outpatient (CLI) | payer OTHER, SELFPAY ==
[2021-09-02 13:29] LABS: Mucous, Urine 0 SEEN /hpf (<or=2+)
[2021-09-02 13:35] LABS: Color, Urine Amber (Yellow); Glucose, Dipstick Normal (Normal); Ketone-Dipstick 5 mg/dl (Negative); Leukocyte Esterase-Dipstick 500 /ul (Negative); Nitrite-Dipstick Negative (Negative); Occult Blood-Urine 250 /ul (Negative); Protein-Dipstick 30 mg/dl (Negative); Specific Gravity, Urine 1.025 (1.002-1.030); Urine Bilirubin Dipstick Negative (Negative); Urine Clarity Cloudy (Clear); Urine Urobilinogen Normal (Normal)
[2021-09-02 13:56] LABS: Red Blood Cells-Urine > 100 SEEN /hpf (0-5); White Blood Cells >100 SEEN /hpf (0-5)
[2021-09-02 13:57] LABS: Bacteria 2+ /hpf (None Seen); Squamous Epithelial Cells - UA 5-10 SEEN /hpf (5-10)
[2021-09-02 13:58] LABS: Renal Epithelial Cells 0-5 SEEN /hpf (0-5)
== END | disposition home or self-care (01) ==
LOC: LABSPEC 13:08
PROVIDERS: PCP Internal Medicine; Visit Provider Physician Assistant
DX: R35.0 Frequency of micturition (principal); R31.9 Hematuria, unspecified
CPT/HCPCS: 81001; 87086; 87088; 87186

== ENCOUNTER 2022-01-25 10:43 | Outpatient (CLI) | payer OTHER, SELFPAY ==
--- NOTE | 2022-01-25 10:50 | BI_ITS ---
MAMMOGRAPHY - BILATERAL SCREENING REASON FOR EXAM: Female, 41 years old. Routine annual screening examination. PERTINENT HISTORY: Non-contributory. TECHNIQUE: Digital bilateral breast sean (3D mammographic acquisition) in the CC and MLO projections. 2-D mediolateral oblique (MLO) and craniocaudad (CC) views of both breasts were obtained. CAD: Full Field Digital Mammography with Computer Added Detection was performed. COMPARISON: Comparison is made with prior study dated 12/09/2020 and 12/04/2019. FINDINGS: Breast Composition: The breasts are extremely dense, which lowers the sensitivity of mammography. There are no dominant masses or suspicious calcifications. No other significant abnormalities are identified. There has been no significant change since the prior study. BI/SCRN MAMM (CAD)W/SEAN BILAT IMPRESSION: Stable bilateral screening mammogram. Yearly follow-up mammogram recommended. (A) ASSESSMENT CATEGORY: BIRADS Category 1: Negative. A letter regarding these results will be sent to the patient by the facility within 30 days. Approximately 10% of breast cancers are not detected by mammography. A normal mammogram should not delay biopsy of a clinically suspicious abnormality. [id number] Electronically Signed: Caleb Ramirez MD at 12:07 EST ,
== END 2022-01-25 23:59 | disposition home or self-care (01) ==
LOC: OPBI 10:44
PROVIDERS: PCP Internal Medicine; Referring Provider Obstetrics & Gynecology; Visit Provider Obstetrics & Gynecology
DX: Z12.31 Encounter for screening mammogram for malignant neoplasm of breast (principal)
CPT/HCPCS: 77063; 77067

== ENCOUNTER → 2022-03-29 | Outpatient (CLI) | payer OTHER, SELFPAY | END | disposition home or self-care (01) | PROVIDERS: PCP Internal Medicine; Visit Provider Physician Assistant Surgical | DX: R30.9 Painful micturition, unspecified (principal) | CPT/HCPCS: 87086; 87088 ==

== ENCOUNTER → 2022-04-22 | Outpatient (CLI) | payer OTHER, SELFPAY ==
--- NOTE | 2022-04-22 14:28 | US_ITS ---
STUDY: RENAL ULTRASOUND - COMPLETE REASON FOR EXAM: Female, 41 years old. Flank pain TECHNIQUE: Ultrasound evaluation of the kidneys was performed with real-time and static goodwin-scale imaging. COMPARISON: None. FINDINGS: RIGHT KIDNEY: Normal location of the right kidney, which is normal in size. The right kidney measures 10.9 x 5 x 4.5 cm. There is a normal cortex of the right kidney. The renal cortex measures 1.2 cm. There is no right renal mass or cyst. There are no right renal calculi. There is no right hydronephrosis. DISTAL RIGHT URETER: There is non-visualization of the distal right ureter. There is no demonstrated right ureterovesical junction calculus. There is a visualized right ureteral jet. LEFT KIDNEY: Normal location of the left kidney, which is normal in size. The left kidney measures 10.7 x 4.9 x 5.7 cm. There is a normal cortex of the left kidney. The renal cortex measures 1.5 cm. There is no left renal mass or cyst. There are no left renal calculi. There is no left hydronephrosis. DISTAL LEFT URETER: There is non-visualization of the distal left ureter. There is no demonstrated left ureterovesical junction calculus. There is a visualized left ureteral jet. AORTA: There is no elongation or tortuosity of the abdominal aorta. I.V.C.: The IVC is patent. BLADDER: The distended urinary bladder has a volume of 214 ml. The empty urinary bladder has a volume of less than 10 ml. There is a normal wall thickness of the distended urinary bladder. There is no demonstrated mass within the urinary bladder. There are no demonstrated bladder calculi. US/Kidney and Bladder IMPRESSION: Normal ultrasound of the kidneys and urinary bladder. Electronically Signed: Mook Luna MD at 15:17 EDT ,
== END | disposition home or self-care (01) ==
LOC: US 14:26
PROVIDERS: PCP Internal Medicine; Referring Provider Urology; Visit Provider Urology
DX: N39.0 Urinary tract infection, site not specified (principal)
CPT/HCPCS: 76770

== ENCOUNTER → 2023-01-19 | Outpatient (CLI) | payer OTHER, SELFPAY ==
[2023-01-28 06:08] LABS: HPV Genotype 16, Aptima Negative (Negative)
[2023-01-28 08:27] LABS: HPV APTIMA, High Risk Positive (Negative); HPV Genotype 18,45 Aptima Negative (Negative)
== END | disposition home or self-care (01) ==
LOC: LABSPEC 13:41
PROVIDERS: PCP Internal Medicine; Referring Provider Registered Nurse; Visit Provider Registered Nurse
DX: Z12.4 Encounter for screening for malignant neoplasm of cervix (principal)
CPT/HCPCS: 87624; 88175; G0145

== ENCOUNTER → 2023-02-02 | Outpatient (CLI) | payer OTHER, SELFPAY ==
--- NOTE | 2023-02-02 15:53 | BI_ITS ---
MAMMOGRAPHY - BILATERAL SCREENING 3-D TOMOSYNTHESIS REASON FOR EXAM: Female, 42 years old. Routine screening PERTINENT HISTORY: No significant family history. TECHNIQUE: 2-D mammograms and 3-D Tomosynthesis of the breast (s) were performed. CAD was performed. COMPARISON: 12/09/2020 FINDINGS: The breast composition is heterogeneously dense that can obscure small breast masses. Scattered benign calcifications are seen. No dense spiculated masses or suspicious microcalcifications are identified. No architectural distortion is identified. There is no skin thickening or retraction. There has been no significant change since the prior study. BI/SCRN MAMM (CAD)W/SEAN BILAT IMPRESSION: No mammographic signs of malignancy. Routine yearly mammograms recommended. ASSESSMENT CATEGORY: BIRADS Category 2: Benign. A letter regarding these results will be sent to the patient by the facility within 30 days. FOLLOW UP RECOMMENDATION: Yearly follow up mammogram recommended. (A) Approximately 10% of breast cancers are not detected by mammography. A normal mammogram should not delay biopsy of a clinically suspicious abnormality. Electronically Signed: Mook Luna MD at 7:49 EDT ,
== END | disposition home or self-care (01) ==
LOC: OPBI 15:52
PROVIDERS: PCP Internal Medicine; Referring Provider Registered Nurse; Visit Provider Registered Nurse
DX: Z12.31 Encounter for screening mammogram for malignant neoplasm of breast (principal)
CPT/HCPCS: 77063; 77067

== ENCOUNTER → 2024-01-25 | Outpatient (CLI) | payer OTHER, SELFPAY ==
[2024-01-27 13:08] LABS: HPV APTIMA, High Risk Negative (Negative)
== END | disposition home or self-care (01) ==
LOC: LABSPEC 12:18
PROVIDERS: PCP Internal Medicine; Referring Provider Registered Nurse; Visit Provider Registered Nurse
DX: Z12.4 Encounter for screening for malignant neoplasm of cervix (principal)
CPT/HCPCS: 87624; 88175; G0145

== ENCOUNTER → 2024-02-06 | Outpatient (CLI) | payer OTHER, SELFPAY ==
--- NOTE | 2024-02-06 10:49 | BI_ITS ---
MAMMOGRAPHY - BILATERAL SCREENING REASON FOR EXAM: Female, 43 years old. Routine annual screening examination. PERTINENT HISTORY: Non-contributory. TECHNIQUE: Digital bilateral breast sean (3D mammographic acquisition) in the CC and MLO projections. 2-D mediolateral oblique (MLO) and craniocaudad (CC) views of both breasts were obtained. CAD: Full Field Digital Mammography with Computer Added Detection was performed. COMPARISON: Comparison is made with prior study February 02, 2023 and January 25, 2022. FINDINGS: Breast Composition: The breasts are heterogeneously dense, which may obscure small masses. There are no dominant masses or suspicious calcifications. No other significant abnormalities are identified. There has been no significant change since the prior study. BI/SCRN MAMM (CAD)W/SEAN BILAT IMPRESSION: Stable bilateral screening mammogram. Yearly follow-up mammogram recommended. (A) ASSESSMENT CATEGORY: BIRADS Category 1: Negative. A letter regarding these results will be sent to the patient by the facility within 30 days. Approximately 10% of breast cancers are not detected by mammography. A normal mammogram should not delay biopsy of a clinically suspicious abnormality. [id number] Electronically Signed: Caleb Ramirez MD at 12:01 EDT ,
== END | disposition home or self-care (01) ==
LOC: OPBI 10:49
PROVIDERS: PCP Internal Medicine; Referring Provider Registered Nurse; Visit Provider Registered Nurse
DX: Z12.31 Encounter for screening mammogram for malignant neoplasm of breast (principal)
CPT/HCPCS: 77063; 77067

== ENCOUNTER → 2024-03-16 | Outpatient (CLI) | payer OTHER, SELFPAY ==
[2024-03-16 10:25] LABS: Absolute Lymphocyte Count 1.37 X10^3/uL (0.83-4.51); Absolute Neutrophil Count 3.8 X10^3/uL (2.0-7.7); Basophil# 0.02 X10^3/uL; Basophil% 0.4 % (0-1); Eosinophil# 0.08 X10^3/uL; Eosinophils% 1.4 % (0-5); Hematocrit 39.2 % (37-47); Hemoglobin 12.9 g/dL (12.0-15.0); Lymphocyte # 1.37 X10^3/ul (0.83-4.51); Lymphocyte % 24.1 % (19-41); Mean Corp Hgb Conc 32.9 g/dL (32-36); Mean Corpuscular Hgb 31.3 pg (27.0-32.0); Mean Corpuscular Volume 95.1 fL (81-99); Mean Platelet Vol. 9.5 fl (6.2-12.0); Monocyte# 0.39 X10^3/uL; Monocyte% 6.9 % (0-10); NRBC Flagged by Analyzer 0 % (0-5); Neutrophil % 66.7 % (47-70); Platelet Count 222 K/mm3 (150-450); RBC Distribution Width CV 12.5 % (11.6-14.6); RBC Distribution Width SD 43.2 fl (35.1-43.9); Red Blood Count 4.12 M/mm3 (4.2-5.4); White Blood Count 5.7 K/mm3 (4.4-11.0)
[2024-03-16 10:48] LABS: Vitamin D,25 Hydroxy 31.4 ng/mL
[2024-03-16 11:12] LABS: AST(SGOT) 84 U/L (15-37); Alanine Aminotransfer ALT/SGPT 115 U/L (13-56); Albumin, Serum 3.8 g/dL (3.2-5.0); Alkaline Phosphatase 106 U/L (45-117); Anion Gap 4 (5-15); BUN 19 mg/dL (7-18); BUN/Creat Ratio 30.6 RATIO (10-20); Calcium,Total 8.9 mg/dL (8.5-10.1); Chloride 108 mmol/L (98-107); Cholesterol 212 mg/dL (200); Creatinine, Serum 0.62 mg/dL (0.55-1.02); EST Glomerular Filtration Rate 110 mL/min (>60); Est Glom Filt Rate - Afr Amer 133 mL/min (>60); Globulin 3.7 g/dL (2.2-4.2); Glucose 83 mg/dL (74-106); High Density Lipoprotein 79 mg/dL; Potassium 3.6 mmol/L (3.5-5.1); Protein, Total 7.5 g/dL (6.4-8.2); Sodium Level 141 mmol/L (136-145); Triglycerides 56 mg/dL; Very Low Density Lipoprotein 11 mg/dL (5-40)
== END | disposition home or self-care (01) ==
LOC: MTLAB 07:33
PROVIDERS: PCP Internal Medicine; Referring Provider Family Medicine; Visit Provider Family Medicine
DX: Z00.00 Encounter for general adult medical examination without abnormal findings (principal); Z13.1 Encounter for screening for diabetes mellitus; Z13.220 Encounter for screening for lipoid disorders
CPT/HCPCS: 36415; 80053; 80061; 82306; 85025

== ENCOUNTER 2024-05-18 07:03 | Day surgery (SDC) | payer OTHER, SELFPAY ==
[2024-05-15 09:37] LABS: Magnesium 2.1 mg/dL (1.6-2.6)
[2024-05-18] VITALS (11 sets, daily range): BP systolic 107–129; BP diastolic 65–82; PULSE 70–94; RESP 16; TEMP 36.3–37.1; O2SAT 94–100; BMI 22.8
[2024-05-18] MEDS: Acetaminophen 500 MG Tablet 1000 MG PO (07:31)
[2024-05-18] MEDS: Lactated Ringers 1,000 ML 15 ML IV (07:31)
[2024-05-18] MEDS: Gabapentin 600 MG Tablet PO (07:31)
[2024-05-18] MEDS: Magnesium 1 GM over 15 mins IV (07:31)
[2024-05-18 08:06] LABS: Bedside Glucose 92 mg/dL (74-106)
--- NOTE | 2024-05-18 08:11 | PRE.ANES_ITS ---
ASA Classification* ASA Classification ASA Classification: 2 Assessment & Plan Anesthesia* Anesthesia Assessment Anesthesia Assessment: Discussed sedation and/or anesthesia options, risks, benefits, and alternatives with patient/parents/legal guardian/POA. Questions invited. The patient/parents/legal guardian/POA seems to understand and agrees to proceed with anesthesia plan. Reviewed the physical assessment, medical history, allergy history and patient home medications list prior to surgery/procedure/anesthetic and documented any changes. Performed airway and anesthesia risk assessments. Anesthesia Type Anesthesia Type: General Anesthesia Focused Assessment* Temperature: 98.7 F Pulse Rate: 79 Blood Pressure: 109/82 Respiratory Rate: 16 Pulse Ox: 100 Airway Assessment Mouth opens: >3 cm Mallampati Score: II Focused Labs Anesthesia Preop lab: CBC WBC 5.7 K/mm3 (4.4-11.0) 03/16/24 07:35 RBC 4.12 M/mm3 (4.2-5.4) L 03/16/24 07:35 Hgb 12.9 g/dL (12.0-15.0) 03/16/24 07:35 Hct 39.2 % (37-47) 03/16/24 07:35 Plt Count 222 K/mm3 (150-450) 03/16/24 07:35 CHEMISTRY Potassium 3.6 mmol/L (3.5-5.1) 03/16/24 07:35 Sodium 141 mmol/L (136-145) 03/16/24 07:35 Magnesium 2.1 mg/dL (1.6-2.6) 05/15/24 08:53 BUN 19 mg/dL (7-18) H 03/16/24 07:35 Creatinine 0.62 mg/dL (0.55-1.02) 03/16/24 07:35 Glucose 83 mg/dL (74-106) 03/16/24 07:35 POC Glucose 92 mg/dL (74-106) 05/18/24 07:24 TSH 2.06 uIU/mL (0.358-3.74) 11/26/20 10:46 COAG PT 12.4 SECONDS (11.7-14.9) 11/26/20 10:46 Urine Test Negative Negative 12/01/20 09:03 Tst Clinic Negative 06/29/21 12:10 Pre-Assessment Diagnosis/Proposed Procedure Planned Operative Procedure(s): RIGHT FOOT 1ST TARSOMETATARSAL JOINT ARTHRODESIS PHANANO OSTEOTOMY HARVEST OF CALCANEAL BONE GRAFT STRESS VIEWS CAPSULATORY 1ST MPJ Anesthesia History 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 When Was Last Pacemaker Check QUESTION #4 FULL TEXT: You/Your Family Experience fever (hyperthermia) with Anesthesia Last Oral Intake Last Oral intake: Last Oral Intake NPO since 05:00 05/18/24 07:21 Meds taken in AM with sips of water? Meds patient instructed to take am of surgery PONV PONV - filling machine tender: PONV - filling machine tender Female Yes 05/11/24 15:08 HX of Motion Sickness Yes 05/11/24 15:08 HX of N/V After Surgery Yes 05/11/24 15:08 Non-Smoker Yes 05/11/24 15:08 Duration of Surgery greater Yes 05/11/24 15:08 than 60 minutes Number of Risk Factors 5 05/11/24 15:08 PONV Score Severe Risk 05/11/24 15:08 Height & Weight Height & Weight: Anesthesia: Height & Weight Height 5 ft 7 in 05/18/24 07:21 Weight: 66 kg 05/18/24 07:21 Body Mass Index (BMI) 22.8 05/18/24 07:21 Respiratory Assessment Respiratory Assessment - filling machine tender: Respiratory Tract Infection Hx - filling machine tender Hx Respiratory Tract Infection No 05/11/24 15:08 STOP Sleep Apnea STOP Sleep Apnea - filling machine tender: STOP Sleep Apnea - filling machine tender Hx Hypertension No 05/11/24 15:08 Hx Sleep Apnea No 05/11/24 15:08 CPAP No 12/01/20 10:42 BIPAP No 11/25/20 13:51 Do you snore loudly (louder No 05/11/24 15:08 than talking or can be heard Do you often feel tired/ No 05/11/24 15:08 fatigued/ sleepy during daytime? Has anyone observed you stop No 05/11/24 15:08 breathing during sleep? STOP Results Negative 05/11/24 15:08 QUESTION #5 FULL TEXT : Do you snore loudly (louder than talking or can be heard through closed doors)? 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 Specify any problems Hx of Preganancy in last 3 No 05/11/24 15:08 Months Nurse Filling Out Transfusion DSCHRIBER 05/11/24 15:08 & Questions: Date: 05/11/24 05/11/24 15:08 Time: 15:10 05/11/24 15:08 Patient unable to answer at this time (ie. confused, unrespo /Reproduction History /Reproductive History - filling machine tender: /Reproductive Hx- filling machine tender Hx Now No 05/11/24 15:08 Gestational Age (in weeks): EDC: Hx Hx Para Hx Section SAB No 05/11/24 15:08 Active Medications Active Medications: Current Medications Generic Name Dose Route Start Last Admin Trade Name Freq PRN Reason Stop Dose Admin Cefazolin Sodium 2 gm/ Sodium 110 mls @ 150 mls/hr 05/18/24 09:00 Chloride IV 05/18/24 09:43 PREOP ONE Magnesium Sulfate 1 gm/ 102 mls @ 408 mls/hr 05/18/24 09:00 05/18/24 07:31 Dextrose IV 05/18/24 09:14 408 mls/hr X1 ONE Administration Lactated Ringer's 1,000 mls @ 15 mls/hr 05/18/24 07:15 05/18/24 07:31 IV 15 mls/hr .Q48H EILEEN Administration PFSH Medical History Low iron Easy bruising Migraine headache Injury of head and neck Blackout Heartburn Non-smoker History of pain when walking Acute bacterial sinusitis Urinary frequency Dysuria Hematuria Home Medications ?Medication ?Instructions ?Recorded ?Last Taken ?Type multivitamin with folic acid 400 1 tab PO DAILY 08/01/18 Unknown History mcg tablet Allergy/AdvReac Type Severity Reaction Status Date / Time No Known Allergies Allergy Verified 05/18/24 07:21 Surgical History Hx of LASIK History of endometrial ablation S/P laparoscopic cholecystectomy (~08/15/18) history corrective eye surgery History of tubal ligation Social History number of children: 2 Smoking Status: Never smoker alcohol intake: never substance use type: does not use seatbelt use: always do you feel safe at home: Yes additional social history: 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
[2024-05-18] MEDS: Cefazolin 2 GM in 0.9% Normal Saline (100mL Bag) 100 ML IV (09:16)
[2024-05-18] MEDS: Bupivacaine 0.5% PF 10 ML VIAL (09:25)
--- NOTE | 2024-05-18 09:25 | RAD_ITS ---
STUDY: X-RAY - RIGHT FOOT CLINICAL: Female, 43 years old. First TMT joint arthrodesis. TECHNIQUE: 8 intraoperative digital documentation view(s) of the foot. COMPARISON: None. FINDINGS: 8 intraoperative digital documentation images show first TMT joint arthrodesis. RAD/Foot min 3 Views IMPRESSION: Intraoperative digital documentation images. Electronically Signed: Horace Earl MD at 11:43 EDT ,
--- NOTE | 2024-05-18 11:34 | PCM.POST.ANE ---
Anesthesia: Postop Eval I Current Vital Signs Temperature: 97.3 F Pulse Rate: 84 Blood Pressure: 126/73 Respiratory Rate: 16 Pulse Ox: 100 Oxygen Delivery Method: Room Air Assessment Airway patent: Yes Spontaneous unlabored respirations: Yes Mental status: Awake (easily arousable) and Calm nausea: No Vomiting: No Anesthesia Complication: No Fluid Hydration Crystalloid volume administer (ml): 1,200 Total IV fluid infused: 1,200 Progress Note Anesthesia document: Postop Eval 1 completed: Yes
--- NOTE | 2024-05-18 11:35 | PCM.OPRPT ---
Problems Associated Problem List Diagnoses (1) Primary osteoarthritis, right ankle and foot: (2) Hallux valgus (acquired), right foot: (3) Pain in right foot: Report of Operation Date of Procedure: 05/18/24 Pre-Operative Diagnosis: 1. Osteoarthritis first TMT J, right lower extremity 2. Hallux abductovalgus, right lower extremity 3. Pain, right foot Post-Operative Diagnosis: 1. Osteoarthritis first TMT J, right lower extremity 2. Hallux abductovalgus, right lower extremity 3. Pain, right foot Surgery/Procedure Performed:: 1. First tarsometatarsal joint arthrodesis, right foot 2. [place] of calcaneal bone graft, right foot 3. Stress views, right foot 4. Capsulotomy first metatarsophalangeal joint, right foot Description of Surgical Findings:: 1. Reduction back to normal value of first and second intermetatarsal angle. 2. Good overall anatomical correction of hallux abductovalgus deformity to the right lower extremity. Surgeon: Valeriano Tirado windows architect: Chloe Madrigal Type of Anesthesia: Block,Regional, General and Local Anesthesiologist: Deon Estrada Special Medications: Per anesthesia Specimen's removed: None Drains: None Estimated Blood Loss (mL): 15 mL Fluids Replaced: Per anesthesia Description of Procedure: Indications For Operation: Ms. Mahoney is a 43-year-old female who was admitted to [facility] for elective bunion corrective surgery to the right foot. Patient is well-known to my practice and was seen in office for surgical consultation with all risk and benefits discussed with the patient in great detail. Patient originally presented with chronic pain with valgus deformity to her right foot. Patient has failed all conservative methods consisting of shoe gear modification, treatment with padding, strapping and other types of treatment consisting of oral anti-inflammatories without success. Patient has failed all conservative treatment at this time. We are recommending surgical intervention. The patient does understand all risk, benefits and complications for the surgical procedure. All questions have been answered to the patient with great detail. Due to right lower extremity deformity it has been deemed necessary at this time to take the patient to the operating room to perform the above procedure to decrease her constant pain. The nature of the problem, anticipated procedures, postop recovery/convalences and risk/complications include but not limited to infection, wound healing complications, digital amputation, hypertrophic scarring, numbness, tingling, chronic pain, CRPS, over and under correction, recurrence of deformity, DVT and or PE and the need for further surgery have been discussed in great detail with the patient. All questions have been answered to the patient's satisfaction. There are no guarantees given as to the outcome of the procedure. Description of Procedure: Under mild sedation, the patient was brought into the operating room and placed on the operating table in supine position. Once the patient was under general anesthesia with laryngeal mask airway, the right lower extremity was blocked using approximately 10 cc 0.5% Marcaine plain to the saphenous nerve. Patient has received popliteal block per anesthesia and holding prior to the procedure. Please see anesthesia notes for further detail. Next, a well-padded thigh tourniquet was applied to the right lower extremity. Next, the right lower extremity was prepped and draped in normal aseptic manner. Next, a timeout was then undertaken verifying the correct patient, extremity, visibility of preoperative markings, availability of the equipment. Next, attention was directed to the right lower extremity. Using a 6 inch Esmarch, right lower extremity was exsanguinated and elevated to 60 degrees for 1 minute. Next, the tourniquet was inflated to 275 mmHg. Procedure #1, [place] of calcaneal bone graft, right foot (CPT code: 95570) Next, attention was directed to the lateral aspect of the right calcaneus. Using a #15 blade, a full-thickness incision, approximately 1 cm, was made down to bone without incident. Continued blunt dissection was carried out with curved hemostats. Using the Fanvibe 7 mm bone graft harvester, calcaneal bone harvest less than than 5 cc was made, then removed from the calcaneus and passed the back table to be used later in the case, for the first tarsometatarsal joint arthrodesis procedure. The incision was flushed with copious regi of normal saline. The skin was reapproximated and closed using 3-0 nylon in simple interrupted suture technique. Procedure #2, first tarsal metatarsal joint arthrodesis, right foot (CPT code: 33629)/procedure #3, capsulotomy of the first metatarsal phalangeal joint (through a separate incision), right foot (CPT code: 48327) Next, attention was directed to the dorsal aspect of the right foot. Using fluoroscopy, the first tarsometatarsal joint was visualized. A longitudinal 3.5 cm incision with a #15 blade was made just medial to the extensor hallucis longus tendon. The incision was made down to the periosteum with care to retract the tendon laterally. The periosteum was reflected. The first tarsometatarsal joint was exposed and identified. Careful dissection was carried down to the level of the first tarsometatarsal joint as well as in the lateral space between the first and second metatarsal. The ligaments were then released at the tarsometatarsal joint with planing with sagittal saw. After planing was performed, the plantar ligaments were released with the Tritome. Next, through a separate incision, a capsulotomy was performed at the lateral aspect of the first metatarsal phalangeal joint. A separate incision approximately 1 cm was made along the lateral aspect of the first metatarsophalangeal joint. Blunt dissection was carried down to the level of the first metatarsophalangeal joint. Using Fanvibe speed release tool, this was inserted laterally into the joint with joint fluid being exposed but inserted, pushing the fibular suspensory ligament into the space and releasing it completely. There was evidence of excellent release of the first metatarsophalangeal joint, and the metatarsal was able to be pushed laterally without soft tissue force imposing on it. The sesamoids were able to be retracted back into position which was confirmed on the large C-arm fluoroscopy. A capsulotomy incision was flushed with copious regi normal saline and closed with 3-0 nylon in simple interrupted suture technique. Next, attention was then redirected back to the first metatarsophalangeal joint, the all-in-one positioner was inserted, positioning the first metatarsal into corrected position. Positioning of the cuts were confirmed with large C-arm fluoroscopy. Cuts were then made with the all-in-one device using the sagittal saw and provided blade by Fanvibe. The compression/distractor was applied. The joint was distracted and the cuts along the base of the first metatarsal and first cuneiform removed. Next, the joint was prepped using a fenestration with a 2-0 drill bit along the first cuneiform and base of the first metatarsal. Next, the [place] of calcaneal bone graft autograft was then packed in the first tarsometatarsal joint. At this point, the positioner was reapplied, compression/distractor was closed down and the fulcrum was then inserted on the lateral aspect of the base of the first metatarsal. Dorsiflexion of the hallux was then performed pushing the metatarsal and tarsometatarsal joint into place, pinning with 2 smooth K wires and crossing fashion technique. Next, orthogonal plating was applied using (x2) 13 mm spleed plates by Fanvibe. Procedure #4, Stress views, right foot (CPT code: 29757) Next, stress views were then performed by squeezing the first and second interphalangeal joint and the first metatarsophalangeal joint of the right foot. There showed evidence of mild splaying. Next using the cannulated screw system by Fanvibe a K wire was driven from the first metatarsal to second cuneiform and a 4-0 cannulated 36 mm screw was inserted with excellent position across this area stabilizing the cuneiform and first metatarsal joint as well as its position. Next, the right lower extremity thigh tourniquet was deflated, reperfusion was noted to the right lower extremity instantly. All bleeders were cauterized and ligated as necessary. All open the incisions were flushed with copious normal saline. As stated above the bone graft harvest and capsulotomy were reapproximated and closed with 3-0 nylon in simple interrupted suture technique. A stab incision over the second metatarsal was reapproximated closed with 3-0 nylon in simple interrupted suture technique. The capsule of the first tarsometatarsal joint was reapproximated and closed with 3-0 Monocryl and running locking suture technique. The subcutaneous layer was reapproximated and closed with 3-0 Monocryl and running suture technique. The skin was reapproximated and closed with 4-0 Monocryl in subcuticular suture technique. The right lower extremities were cleaned and patted dry. Steri-Strips were applied to the dorsal incision. All incisions were dressed with Betadine soaked Adaptic dry sterile dressing and a 2 layer Saini AO splint at 90 degrees was applied to the right lower extremity. The patient tolerated the procedure and anesthesia well and apparent satisfactory condition and was transported to the PACU for further monitoring prior to discharge home. Vital signs stable and vascular status intact to all digits bilateral. Post Operative Plan: Weightbearing: No weightbearing to right lower extremity. Full weightbearing to the left lower extremity. Antibiotics: 2 g Ancef DVT Prophylaxis: Aspirin 81 mg twice daily [place]vall: None Dressing: Betadine soaked Adaptic, dry sterile dressing and a 2 layer Saini AO splint at 90 degrees X-Rays: Post-operative films taken on the operating room. Pain Medication: Percocet 5/325, Flexeril 10 mg 3 times daily Follow-up: Patient will follow-up in 1 week to [address] Tirado in private office.
[2024-05-18] MEDS: Acetaminophen 325 MG Tablet PO (13:01)
[2024-05-18] MEDS: oxyCODONE 5 MG Tablet PO (13:01)
--- NOTE | 2024-05-18 16:39 | POSTOPAN2_ITS ---
Anesthesia Postop Eval I Sum Postop Eval Completion status Anesthesia document: Postop Eval 1 completed: Yes Anesthesia Postop Eval I Summary Anesthesia Postop Eval I Summary: Anesthesia Postop Eval I: Assessment Summary Airway patent Yes 05/18/24 11:35 [email or web address] Spontaneous unlabored Yes 05/18/24 11:35 [email or web address] respirations Mental status Awake - easily 05/18/24 11:35 [email or web address] arousable,Calm nausea No 05/18/24 11:35 [email or web address] Vomiting No 05/18/24 11:35 [email or web address] Anesthesia Postop Eval I: Fluid Summary Crystalloid volume administer 1,200 05/18/24 11:35 [email or web address] (ml) Colloids volume administered ( ml) Blood Product volume administered (ml) Total IV fluid infused 1,200 05/18/24 11:35 [email or web address] Anesthesia Postop Eval I: Summary Notes Anesthesia Complication No 05/18/24 11:35 [email or web address] Anesthesia Complication Comment: Post-operative progress note Anesthesia: Postop Eval II Evaluation Mental status: Awake and Calm Pain Level: 0 nausea: No Vomiting: No Complications Anesthesia Complication: No
--- NOTE | 2024-05-18 16:39 | PCM.POSTANE2 ---
Anesthesia Postop Eval I Sum Postop Eval Completion status Anesthesia document: Postop Eval 1 completed: Yes Anesthesia Postop Eval I Summary Anesthesia Postop Eval I Summary: Anesthesia Postop Eval I: Assessment Summary Airway patent Yes 05/18/24 11:35 [email or web address] Spontaneous unlabored Yes 05/18/24 11:35 TOOTH [email or web address] respirations Mental status Awake - easily 05/18/24 11:35 [email or web address] arousable,Calm nausea No 05/18/24 11:35 [email or web address] Vomiting No 05/18/24 11:35 [email or web address] Anesthesia Postop Eval I: Fluid Summary Crystalloid volume administer 1,200 05/18/24 11:35 [email or web address] (ml) Colloids volume administered ( ml) Blood Product volume administered (ml) Total IV fluid infused 1,200 05/18/24 11:35 [email or web address] Anesthesia Postop Eval I: Summary Notes Anesthesia Complication No 05/18/24 11:35 [email or web address] Anesthesia Complication Comment: Post-operative progress note Anesthesia: Postop Eval II Evaluation Mental status: Awake and Calm Pain Level: 0 nausea: No Vomiting: No Complications Anesthesia Complication: No
== END 2024-05-18 13:34 | disposition home or self-care (01) ==
LOC: SDC 07:03 → AC 07:03
PROVIDERS: Anesthesiology; PCP Family Medicine; Referring Provider Podiatrist Foot & Ankle Surgery; Visit Provider Podiatrist Foot & Ankle Surgery
PROC: (CPT 20900; principal; 2024-05-18 08:45)
DX: M19.071 Primary osteoarthritis, right ankle and foot (principal); M20.11 Hallux valgus (acquired), right foot
CPT/HCPCS: 20900; 28740; 64445; 01480; 36415; 73630; 76000; 82962; 83735; 87081; C1713; J7120; J2405; J3475

== ENCOUNTER → 2025-03-11 | Outpatient (CLI) | payer OTHER, SELFPAY ==
--- NOTE | 2025-03-11 13:46 | BI_ITS ---
EXAM: SCRN MAMM (CAD)W/SEAN BILAT DATE: 03/11/2025 CLINICAL HISTORY: F, Age 44 y/o , SCREEN FOR BREAST CANCER BREAST CANCER RISK ASSESSMENT: Not assessed. TECHNIQUE: Bilateral screening digital breast tomosynthesis with 2D and 3D images. Computer aided detection. COMPARISON: Prior exam(s) dated February 06, 2024.. FINDINGS: TISSUE DENSITY: The breast tissue is extremely dense which lowers the sensitivity of mammography. Bilateral Breast Mammographic Findings: No significant masses, calcifications or other abnormalities are identified. No suspicious masses, areas of developing architectural distortion, or suspicious calcifications. There has been no significant interval change. BI/SCRN MAMM (CAD)W/SEAN BILAT IMPRESSION: OVERALL FINAL ASSESSMENT: BIRADS 1 NEGATIVE RECOMMENDATION: Routine annual follow-up in 1 Year A letter with findings and recommendations will be mailed to the patient. Reading Location: [place] [id number]
== END | disposition home or self-care (01) ==
LOC: OPBI 13:35
PROVIDERS: PCP Family Medicine; Referring Provider Registered Nurse; Visit Provider Registered Nurse
DX: Z12.31 Encounter for screening mammogram for malignant neoplasm of breast (principal)
CPT/HCPCS: 77063; 77067

== ENCOUNTER → 2025-09-24 | Outpatient (CLI) | payer OTHER, SELFPAY ==
[2025-09-24 12:20] LABS: Hematocrit 40.6 % (37-47); Hemoglobin 13.5 g/dL (12.0-15.0); Mean Corp Hgb Conc 33.3 g/dL (32-36); Mean Corpuscular Volume 94.0 fL (81-99); Mean Platelet Vol. 9.7 fl (6.2-12.0); Platelet Count 231 K/mm3 (150-450); RBC Distribution Width CV 12.5 % (11.6-14.6); RBC Distribution Width SD 43.5 fl (35.1-43.9); Red Blood Count 4.32 M/mm3 (4.2-5.4); White Blood Count 4.9 K/mm3 (4.4-11.0)
[2025-09-24 13:10] LABS: AST(SGOT) 73 U/L (<=31); Alanine Aminotransfer ALT/SGPT 93 U/L (<=34); Albumin, Serum 4.7 g/dL (3.5-5.0); Alkaline Phosphatase 145 U/L (35-104); Anion Gap 11 (5-15); BUN 18 mg/dL (4-19); BUN/Creat Ratio 31.2 RATIO (10-20); Calcium,Total 10.1 mg/dL (7.6-11.0); Carbon Dioxide 26.7 mmol/L (21.0-32.0); Chloride 102 mmol/L (98-108); Cholesterol 243 mg/dL (<=200); Globulin 3.4 g/dL (2.2-4.2); Glucose 78 mg/dL (70-99); Low Density Lipoprotein Calc. 137 mg/dL; Potassium 4.3 mmol/L (3.3-5.1); Triglycerides 154 mg/dL; Very Low Density Lipoprotein 31 mg/dL (5-40); cholesterol:hdl ratio screen 3.08
== END | disposition home or self-care (01) ==
LOC: MFPLAB 09:51
PROVIDERS: PCP Family Medicine; Visit Provider Family Medicine
DX: Z71.85 Encounter for immunization safety counseling (principal); Z13.1 Encounter for screening for diabetes mellitus; R53.83 Other fatigue; Z13.220 Encounter for screening for lipoid disorders
CPT/HCPCS: 36415; 80053; 80061; 82784; 83516; 84443; 85027; 86003; 86005; 86255

== ENCOUNTER → 2025-11-18 | Outpatient (CLI) | payer OTHER, SELFPAY ==
[2025-11-18 18:15] LABS: Follicle Stimulating Hormone 75.3 mIU/mL
--- OUTSIDE RECORDS SUMMARY | 2025-11-18 20:04 | XMS RPT_ITS | CCD ---
Author Organization [facility] Care Team Providers Care Forestry Adviser Name Role Phone Sole Banegas Unavailable Gaston Ruiz Unavailable [facility], Loc[facility] Unavailable Leann Denson Unavailable Unavailable Rosemarie Yuen Unavailable Paola Diamond Unavailable Unavailable Slarb, Amy Unavailable Unavailable Unavailable Unavailable Sole Banegas Unavailable Gaston Ruiz Unavailable [facility] Unavailable Manchak, Laura Unavailable Unavailable Slarb, Amy Unavailable Unavailable Unavailable Unavailable Manchak, Laura Unavailable Unavailable Gravius, Megan Unavailable Unavailable Constantin, Lynnette Unavailable Unavailable NATACHA Pittman Unavailable Unavailable Sole Banegas DO Unavailable Gaston Ruiz MD Unavailable [facility], [facility] Unavailable NATACHA Pittman LPN Unavailable Unavailable Lynnette Killian LPN Unavailable Unavailable Manchak AGRICULTURAL RESEARCH DIRECTOR, Laura Unavailable Unavailable Slarb RF TECHNICIAN, Amy Unavailable Unavailable Unavailable Unavailable Dr. Sole Banegas Primary Care Provider Dr. Sole Banegas Referring Provider [phone] KERLINE Matthews Attending Provider Sole Banegas DO Unavailable Dr. Sole Banegas Primary Care Provider Dr. Sole Banegas Referring Provider DANIEL Goldstein Attending Provider Dr. Sole Banegas Primary Care Provider Dr. Sole Banegas Referring Provider DANIEL Goldstein Attending Provider Dr. Sole Banegas Primary Care Provider Dr. Sole Banegas Referring Provider DANIEL Goldstein Attending Provider Sue Baldwin MD Primary Care Provider Sue Baldwin MD Referring Provider David Webb Attending Provider [phone] Tonya Goldstein CNM Attending Provider Tonya Goldstein CNM Referring Provider Nicolasa, Chalon Primary Care Unavailable Nicolasa, Chalon Attending Unavailable Nicolasa, Chalon Referring Unavailable David Webb Attending Unavailable Nicolasa, Chalon Primary Care Unavailable Nicolasa, Chalon Primary Care Unavailable Tonya Goldstein Attending Unavailable Nicolasa, Chalon Referring Unavailable Nicolasa, Chalon Primary Care Unavailable David Webb Attending Unavailable Nicolasa, Chalon Referring Unavailable Nicolasa, Chalon Referring Unavailable Justin Matthews Attending Unavailable Nicolasa, Chalon Primary Care Unavailable Nicolasa, Chalon Primary Care Unavailable Tonya Goldstein Attending Unavailable Goldstein, Tonya Referring Unavailable Medications Current Medications Medication Drug Class(es) Dates Sig (Normalized) Sig (Original) Desog-E.Estradiol/ E.Estradiol (20 sources) Progestin, Estrogen Start: 07-17-2018 take 0.15 tablet by mouth once daily Desog-E.Estradiol /E.Estradiol ([place] (28)) 0.15-0.02 mgx21 /0.01 mg x 5 tablet Active 1 TABLET PO DAILY July 17, 2018 7:38am Start: 07-17-2018 End: 01-19-2023 take 0.15 tablet by mouth once daily Desog-E.Estradiol/E.Estradiol (Viorele ( 28)) 0.15-0.02 mgx21 /0.01 mg x 5 tablet Discontinued 1 {tbl} PO DAILY July 17, 2018 12:00am January 19, 2023 12:04pm Start: 07-17-2018 End: 01-19-2023 take 0.15 tablet by mouth once daily Desog-E.Estradiol/E.Estradiol (Vi[place]le ( 28)) 0.15-0.02 mgx21 /0.01 mg x 5 tablet Discontinued 1 TABLET PO DAILY July 17, 2018 12:00am January 19, 2023 12:04pm Start: 07-17-2018 End: 01-19-2023 take 0.15 tablet by mouth once daily Desog-E.Estradiol/E.Estradiol (Viorele ( 28)) 0.15-0.02 mgx21 /0.01 mg x 5 tablet Discontinued 1 TABLET PO DAILY July 16, 2018 11:00pm January 19, 2023 11:04am take 1 tablet by walter th once daily, then take 0.15 tablet by mouth [place] 0.15-0.02/0.01 MG (21/5) Oral Ta blet 1 qd (0.15-0.02/0.01 MG (21/5)) Active End: 03-03-2009 take 1 tablet by mouth once daily ORTHO-CEPT (28), 0.15-30MG-MCG (Oral Tab let) 1 qd for 0 days Refills: 0 Ordered: 03-Mar-2009 Fatuma Jones End : 03-Mar-2009 Discontinued Multivitamin With Folic Acid (14 sources) Start: 08-01-2018 take 1 tablet by mouth once daily Multivitamin With Folic Acid Active 1 TABLET PO DAILY August 01, 2018 1:05pm Start: 08-01-2018 take 1 tablet by walter th once daily Multivitamin With Folic Acid Active 1 TABLET PO DAILY August 01, 2018 12:00am Start: 08-01-2018 take 1 tablet by walter th once daily Multivitamin With Folic Acid Active 1 TABLET PO DAILY July 31, 2018 11:00pm Start: 10-14-2014 End: 07-17-2018 take 1 tablet by mouth once daily Multivitamin With Folic Acid Discontinued 1 TABLET PO DAILY October 14, 2014 2:16pm July 17, 2018 7:36am Start: 10-14-2014 End: 07-17-2018 take 1 tablet by mouth once daily Multivitamin With Folic Acid Discontinued 1 TABLET PO DAILY October 14, 2014 1:00am July 17, 2018 7:36am Start: 10-14-2014 End: 07-17-2018 take 1 tablet by mouth once daily Multivitamin With Folic Acid Discontinued 1 TABLET PO DAILY October 14, 2014 12:00am July 17, 2018 6:36am [place] (Nk) (1 source) Start: 03-01-2025 [place] (Nk) A ctive March 01, 2025 12:00am Completed/Discontinued Medications Medication Drug Class(es) Dates Sig (Normalized) Sig (Original) acetaminophen 300 mg / HYDROcodone bitartrate 5 mg oral tablet (8 sources) Opioid Agonist Start: 10-24-2014 End: 07-17-2018 Hydrocodone-Acetami nophen 1 EACH tablet Discontinued 1 - 2 {tbl} PO EVERY 4 HOURS NEEDED as needed for Mod-Severe (Pain Scale 6-10) October 24, 2014 1:00am July 17, 2018 7:36am Start: 10-24-2014 End: 07-17-2018 take 1 tablet by mouth every four hours as needed Hydrocodone-Acetaminophen Discontinued 1 - 2 TABLET PO EVERY 4 HOURS NEEDED October 24, 2014 1:00am July 17, 2018 7:36am acetaminophen 325 mg / oxyCODONE hydrochloride 5 mg oral tablet (9 sources) Opioid Agonist Start: 05-18-2024 End: 09-28-2024 Oxycodone-Acetaminophen (Endocet) 5-325 mg tablet Discontinued 1 {tbl} PO EVERY 6 HOURS 17 06May 18, 2024 September 28, 2024 6:26pm Start: 08-15-2018 End: 08-20-2018 Oxycodone-Acetaminophen 1 TA BLET tablet Discontinued 1 - 2 {tbl} PO EVERY 4 HOURS NEEDED as needed for Pain 19 04August 15, 2018 12:00am August 19, 2018 12:00am August 20, 2018 12:09am Start: 08-15-2018 End: 08-20-2018 take 1 tablet by mouth every four hours as needed Oxycodone-Acetaminophen Discontinued 1 - 2 TABLET PO EVERY 4 HOURS NEEDED 19 04August 15, 2018 12:00am August 20, 2018 12:09am amoxicillin 500 mg oral tablet (20 sources) Penicillin-class Antibacterial Start: 02-04-2025 End: 03-01-2025 take 1 tablet by mouth three times daily Amoxicillin 500 mg tablet Discontinued 500 mg PO THREE TIMES A DAY February 04, 2025 12:00am March 01, 2025 2:20pm Start: 08-06-2023 End: 08-16-2023 take 1 tablet by mouth twice daily Amoxicillin 500 mg tablet Discontinued 500 mg PO TWICE A DAY 09 09August 06, 2023 12:00am August 15, 2023 12:00am August 16, 2023 12:05am Start: 05-06-2016 End: 06-19-2018 take 1 capsule by mouth twice daily Amoxicillin 500 MG Oral Capsule 1 (one) Capsule Capsule bid for 0 days Quantity: 20 {Capsule} Refills: 0 Ordered: 19-Jun-2018 Paola Diamond RN Start : 06-May-2016 End : 19-Jun-2018 Inactive amoxicillin 875 mg / clavulanate 125 mg oral tablet (17 sources) Penicillin-class Antibacterial Start: 09-28-2024 End: 10-08-2024 Amoxicillin-Pot Clavulanate 875-125 mg tablet Discontinued 1 {tbl} PO Q12H 09 09September 28, 2024 1:00am October 07, 2024 1:00am October 08, 2024 1:09am Start: 08-30-2019 End: 09-09-2019 take 1 tablet by mouth twice daily Augmentin 875-125 MG Oral Tablet 1 Tablet bid for 10 days Quantity: 20 {Tablet} Refills: 0 Ordered: 30-Aug-2019 Start : 30-Aug-2019 End : 09-Sep-2019 Inactive Start: 10-31-2018 take 1 tablet by walter th twice daily Augmentin 875-125 MG Oral Tablet 1 Tablet bid for 10 days Quantity: 20 {Tablet} Refills: 0 Ordered: 31-Oct-2018 Rosemarie Yuen CNP Start : 31-Oct-2018 Active ascorbic acid 1000 mg oral tablet (1 source) Vitamin C Start: 05-18-2024 End: 09-28-2024 take 1 g by mouth once daily Ascorbic Acid (Vitamin C) (Vitamin C) 1,000 mg tablet Discontinued 1 g PO DAILY May 18, 2024 12:00am September 28, 2024 6:26pm aspirin 81 mg delayed release oral tablet (1 source) Platelet Aggregation Inhibitor, Nonsteroidal Anti-inflammatory Drug Start: 05-18-2024 End: 09-28-2024 take 1 tablet by mouth once daily Aspirin 81 mg tablet,delayed release (DR/EC) Discontinued 81 mg PO DAILY May 18, 2024 12:00am September 28, 2024 6:26pm azithromycin 250 mg oral tablet (16 sources) Macrolide Antimicrobial Start: 01-18-2011 End: 02-05-2011 ZITHROMAX Z-KT, 250MG (Oral Tablet) 1 Tablet(s) TAD for 0 days Quantity: 1 {Package(s)} Refills: 0 Ordered: 05-Feb-2011 Paola Diamond RN Start : 18-Jan-2011 End : 05-Feb-2011 Inactive benzoyl peroxide 100 mg/ml medicated liquid soap (16 sources) End: 01-18-2011 BENZOYL PEROXIDE WASH, 10% (External Liquid) qd for 0 days Refills: 0 Ordered: 18-Jan-2011 End : 18-Jan-2011 Inactive End: 01-18-2011 BENZOYL PEROXIDE WASH, 10% ( External Liquid) qd for 0 days Refills: 0 Ordered: 18-Jan-2011 Hamilton GRANT Melanie End : 18-Jan-2011 Inactive calcium carbonate 1250 mg / cholecalciferol 600 unt oral tablet (1 source) Vitamin D Start: 05-18-2024 End: 09-28-2024 Calcium Carbonate-Vitamin D3 (Os-Basil 500 + D3) 500 mg-15 mcg (600 unit) tablet Discontinued 1 {tbl} PO DAILY May 18, 2024 12:00am September 28, 2024 6:26pm clarithromycin 500 mg oral tablet (20 sources) Macrolide Antimicrobial Start: 05-02-2017 End: 06-19-2018 take 1 tablet by mouth twice daily Clarithromycin 500 MG Oral Tablet 1 (one) Tablet Tablet bid for 0 days Quantity: 20 {Tablet} Refills: 0 Ordered: 19-Jun-2018 Paola Diamond RN Start : 02-May-2017 End : 19-Jun-2018 Inactive Start: 04-11-2014 End: 04-21-2014 take 1 tablet by mouth twice daily BIAXIN, 500MG (Oral Tablet) 1 (one) Tablet bid for 10 days Quantity: 20 {Tablet} Refills: 0 Ordered: 11-Apr-2014 Laura Flores CMA Start : 11-Apr-2014 End : 21-Apr-2014 Inactive cyclobenzaprine hydrochloride 10 mg oral tablet (1 source) Muscle Relaxant Start: 05-18-2024 End: 09-28-2024 take 1 tablet by mouth three times daily Cyclobenzaprine 10 mg tablet Discontinued 10 mg PO THREE TIMES A DAY 10 06May 18, 2024 12:00am September 28, 2024 6:26pm 12 hr dextromethorphan polistirex 6 mg/ml extended release suspension (16 sources) Uncompetitive F-jtkcev-A-asparta te Receptor Antagonist, Sigma-1 Agonist Start: 10-31-2018 End: 08-30-2019 take 1 mL by mouth every twelve hours Delsym 30 MG/5ML Oral Suspension Extended Release 1 (one) Milliliter q12hr for 0 days Quantity: 120 {Milliliter} Refills: 0 Ordered: 30-Aug-2019 Laura Flores CMA Start : 31-Oct-2018 End : 30-Aug-2019 Inactive docusate sodium 100 mg oral capsule (1 source) Start: 05-18-2024 End: 09-28-2024 take 1 capsule by mouth once daily Docusate Sodium (Colace) 100 mg capsule Discontinued 100 mg PO DAILY 08 30May 18, 2024 12:00am September 28, 2024 6:26pm esomeprazole 40 mg delayed release oral capsule (20 sources) Proton Pump Inhibitor Start: 08-23-2018 End: 08-23-2018 take 2 capsules by mouth once daily NexIUM 24HR 20 MG Oral Capsule Delayed Release 2 (two) Capsule qd for 0 days Quantity: 60 {Capsule} Refills: 2 Ordered: 23-Aug-2018 NATACHA Pittman LPN Start : 23-Aug-2018 End : 23-Aug-2018 Inactive Start: 08-23-2018 End: 08-30-2019 take 1 capsule by mouth once daily Esomeprazole Magnesium 40 MG Oral Capsule Delayed Release 1 (one) Capsule Capsule qd for 0 days Quantity: 30 {Capsule} Refills: 0 Ordered: 30-Aug-2019 Laura Flores CMA Start : 23-Aug-2018 End : 30-Aug-2019 Inactive 24 hr etodolac 400 mg extended release oral tablet (16 sources) Nonsteroidal Anti-inflammatory Drug Start: 12-13-2016 End: 06-19-2018 take 2 tablets by mouth every twenty-four hours, then take 1 tablet by mouth once daily at mealtime Etodolac ER 400 MG Oral Tablet Extended Release 24 Hour 2 (two) Tablet ER 24HR Tablet ER 24HR qd with food for 0 days Quantity: 28 {Tablet} Refills: 0 Ordered: 19-Jun-2018 Paola Diamond RN Start : 13-Dec-2016 End : 19-Jun-2018 Inactive fluconazole 150 mg oral tablet (16 sources) Azole Antifungal Start: 09-04-2019 End: 10-06-2020 Diflucan 150 MG Oral Tablet 1 (one) Tablet x 1 day. Can then repeat in 72 hrs if needed for 0 days Quantity: 2 {Tablet} Refills: 0 Ordered: 06-Oct-2020 Ceci LONGORIAMegan Start : 04-Sep-2019 End : 06-Oct-2020 Inactive Start: 05-06-2016 End: 06-19-2018 Diflucan 150 MG Oral Tablet 1 (one) Tablet Tablet x1 then repeat at end of antibiotic therapy for 0 days Quantity: 2 {Tablet} Refills: 0 Ordered: 19-Jun-2018 Paola Diamond LPN Start : 06-May-2016 End : 19-Jun-2018 Inactive fluticasone propionate 0.05 mg/actuat metered dose nasal spray (16 sources) Corticosteroid Start: 12-03-2011 End: 02-28-2015 FLONASE, 50MCG/ACT (Nasal Suspension) 2 (two) Puff(s) daily for 0 days Quantity: 1 {Suspension} Refills: 0 Ordered: 28-Feb-2015 Amy Chow LPN Start : 03-Dec-2011 End : 28-Feb-2015 Discontinued loratadine 10 mg oral tablet (16 sources) Start: 03-03-2009 End: 01-18-2011 CLARITIN, 10MG (Oral Tablet) 1 for 0 days Refills: 0 Ordered: 18-Jan-2011 Start : 03-Mar-2009 End : 18-Jan-2011 Inactive metaxalone 800 mg oral tablet (16 sources) Start: 04-09-2014 End: 02-28-2015 take 1 tablet by mouth three times daily as needed METAXALONE, 800MG (Oral Tablet) 1 (one) Tablet TID PRN for 0 days Quantity: 30 {Tablet} Refills: 0 Ordered: 28-Feb-2015 Amy Chow LPN Start : 09-Apr-2014 End : 28-Feb-2015 Discontinued Multivitamin preparation (16 sources) take 1 tablet by mouth once daily MULTI-VITAMIN (Oral Tablet) 1 qd for 0 days Refills: 0 Ordered: 03-Mar-2009 Robert Fatuma Active Multivitamin With Folic Acid 1 TABLET tablet (2 sources) Start: 08-01-2018 End: 09-28-2024 take 1 tablet by mouth once daily Multivitamin With Folic Acid 1 TABLET tablet Discontinued 1 {tbl} PO DAILY August 01, 2018 12:00am September 28, 2024 6:26pm Start: 10-14-2014 End: 07-17-2018 take 1 tablet by mouth once daily Multivitamin With Folic Acid 1 TABLET tablet Discontinued 1 {tbl} PO DAILY October 14, 2014 1:00am July 17, 2018 7:36am nitrofurantoin, macrocrystals 25 mg / nitrofurantoin, monohydrate 75 mg oral capsule (20 sources) Nitrofuran Antibacterial Start: 03-29-2022 End: 04-05-2022 take 1 capsule by mouth every twelve hours at mealtime Nitrofurantoin Monohyd/M-Cryst 100 mg capsule Discontinued 1 NMA PO Q12H 14 March 29, 2022 12:00am April 04, 2022 12:00am April 05, 2022 12:04am administer with a meal/food; swallow whole; do not open, crush, dissolve , or chew Start: 09-02-2021 End: 09-07-2021 take 1 capsule by mouth every twelve hours at mealtime Nitrofurantoin Monohyd/M-Cryst (Macrobid) 100 mg capsule Discontinued 100 mg PO Q12H 10 September 02, 2021 12:00am September 06, 2021 12:00am September 07, 2021 12:01am must administer with a meal/food Start: 06-29-2021 End: 07-06-2021 take 1 capsule by mouth every twelve hours at mealtime Nitrofurantoin Monohyd/M-Cryst (Macrobid) 100 mg capsule Discontinued 100 mg PO Q12H 14 7 June 29, 2021 12:00am July 05, 2021 12:00am July 06, 2021 12:01am must administer with a meal/food oxyCODONE hydrochloride 5 mg oral tablet (8 sources) Opioid Agonist Start: 12-01-2020 End: 12-08-2020 take 1 tablet by mouth every six hours as needed for pain Oxycodone 5 MG tablet Discontinued 5 mg PO EVERY 6 HOURS NEEDED as needed for Pain Score 6-10 7 7 December 01, 2020 December 07, 2020 1:00am December 08, 2020 1:02am predniSONE 10 mg oral tablet (4 sources) Start: 08-06-2023 End: 01-25-2024 Prednisone 10 mg tablet Discontinued 10 mg PO .COMPLEX August 06, 2023 12:00am January 25, 2024 10:37am Take 4 pills for 3 days, 3 pills for 3 days, 2 pills for 3 days, take 1 pill for 3 days 24 hr propranolol hydrochloride 120 mg extended release oral capsule (20 sources) beta-Adrenergi c Jonn Start: 09-10-2008 End: 03-03-2009 take 1 capsule by mouth once daily INDERAL LA, 120MG (Oral Capsule Extended Release 24 Hour) 1 (one) Capsule ER 24HR Daily for 0 days Quantity: 30 {Capsule_ER_24HR} Refills: 11 Ordered: 10-Sep-2008 Fatuma Jones Start : 10-Sep-2008 End : 03-Mar-2009 Discontinued End: 03-03-2009 take 1 capsule by mouth once daily INDERAL LA, 120MG (PO Cap CR) 1 qd for 0 days Refills: 0 Ordered: 10-Sep-2008 Fatuma Jones End : 03-Mar-2009 Discontinued saccharomyces boulardii 250 mg oral capsule (6 sources) Start: 01-19-2023 End: 05-11-2024 take 1 capsule by mouth twice daily Saccharomyces Boulardii (Daily Probiotic (S. Boulardii)) 250 mg capsule Discontinued 250 mg PO TWICE A DAY January 19, 2023 1:00am May 11, 2024 3:06pm salicylic acid 20 mg/ml topical solution (16 sources) FINAC, 2% (External Lotion) 1 as needed (2 %) Inactive Comments: Medication taken as needed. Comment on above: Medication taken as needed. SUMAtriptan 100 mg oral tablet (16 sources) Serotonin-1b and Serotonin-1d Receptor Agonist Start: 09-10-2008 End: 01-18-2011 IMITREX, 100MG (Oral Tablet) 1 Tablet prn for 0 days Quantity: 9 {Tablet} Refills: 3 Ordered: 18-Jan-2011 Start : 10-Sep-2008 End : 18-Jan-2011 Inactive tretinoin 0.0001 mg/mg topical gel (16 sources) Retinoid End: 01-18-2011 TRETIN-X, 0.01% GEL (External Kit) qd for 0 days Refills: 0 Ordered: 18-Jan-2011 End : 18-Jan-2011 Inactive triamcinolone acetonide 0.055 mg/actuat metered dose nasal spray (20 sources) Corticosteroid Start: 02-28-2015 End: 07-25-2015 NASACORT AQ, 55MCG/ACT (Nasal Aerosol) 2 (two) Puff daily for 0 days Quantity: 1 {Bottle} Refills: 0 Ordered: 25-Jul-2015 Amy Chow LPN Start : 28-Feb-2015 End : 25-Jul-2015 Discontinued Comments: This order discontinued per [facility]. Start: 03-03-2009 End: 01-18-2011 NASACORT AQ, 55MCG/ACT (Nasa l Aerosol Solution) 1 (one) Aerosol Soln 2 puffs daily for 0 days Refills: 0 Ordered: 18-Jan-2011 Start : 03-Mar-2009 End : 18-Jan-2011 Inactive Start: 03-03-2009 End: 01-18-2011 NASACORT AQ, 55MCG/ACT (Nasa l Aerosol Solution) 1 (one) Aerosol Soln 2 puffs daily for 0 days Refills: 0 Ordered: 18-Jan-2011 Melanie Villasenor LPN Start : 03-Mar-2009 End : 18-Jan-2011 Inactive Comment on above: This order discontin ued per [facility]. Problems Active Problems Problem Classification Problem Date Documented Da te Episodic/Chronic Abdominal pain (20 sources) Epigastric pain; Translations: [Right upper quadrant pain] Resolved: 08-30-2019 10-31-2018 Episodic Acquired foot deformities (1 source) Acquired hallux valgus; Translations: [Hallux valgus (acquired), right foot] 05-19-2024 Chronic Acute and chronic tonsillitis (20 sources) Tonsillitis; Translations: [Acute tonsillitis] Resolved: 08-30-2019 10-31-2018 Episodic Biliary tract disease (8 sources) Calculus of gallbladder with acute cholecystitis; Translations: [Calculus of gallbladder with acute cholecystitis without obstruction] 11-30-2020 Episodic Disorders of lipid metabolism (6 sources) Hyperlipidemia; Translations: [Hyperlipemia] 10-08-2020 Chronic Disorders of teeth and jaw (16 sources) Jaw pain Episodic Genitourinary symptoms and ill-defined conditions (20 sources) Dysuria; Translations: [Dysuria] 10-31-2018 Episodic Headache; including migraine (20 sources) Migraine; Translations: [Migraine] Resolved: 05-12-2009 04-09-2014 Chronic Menstrual disorders (10 sources) Disorder of menstruation; Translations: [Abnormal menses] 10-06-2020 Chronic Osteoarthritis (1 source) 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; Translations: [Primary osteoarthritis, right ankle and foot] 05-19-2024 Chronic Other congenital anomalies (16 sources) Vascular hamartomas; 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, NOS] 10-31-2018 Chronic Comment on above: removed 09/22/07 Other connective tissue disease (1 source) Foot pain; Translations: [Pain in right foot] 05-19-2024 Episodic Other gastrointestinal disorders (20 sources) Diarrhea; Translations: [Diarrhea] 10-06-2020 Episodic Other lower respiratory disease (20 sources) Cough; Translations: [Cough] Resolved: 08-30-2019 10-31-2018 Episodic Other nervous system disorders (1 source) Acute postoperative pain; Translations: [Other acute postprocedural pain] 05-18-2024 Episodic Other nutritional; endocrine; and metabolic disorders (20 sources) Weight loss; Translations: [Weight loss] Resolved: 08-30-2019 10-31-2018 Episodic Other and delivery including normal (16 sources) History of past delivery; Translations: [Vaginal delivery] 10-31-2018 Episodic Comment on above: Other screening for suspected conditions (not mental disorders or infectious disease) (2 sources) Ultrasound scan abnormal; Translations: [Abnormal ultrasound] 10-08-2020 Chronic Other skin disorders (16 sources) Acne; Translations: [Acne] 10-31-2018 Episodic Other upper respiratory disease (16 sources) Allergic rhinitis due to other allergen Chronic Other upper respiratory disease (20 sources) Pain in throat Episodic Other upper respiratory infections (18 sources) Chronic sinusitis, unspecified; Translations: [Bacterial sinusitis] Resolved: 08-30-2019 10-31-2018 Chronic Otitis media and related conditions (16 sources) Dysfunction of eustachian tube; Translations: [Eustachian tube dysfunction] 10-31-2018 Episodic Residual codes; unclassified (11 sources) Body mass index (BMI) 22.0-22.9, adult; Translations: [Body mass index (BMI) 20.0-20.9, adult] Resolved: 10-06-2020 10-31-2018 Episodic Residual codes; unclassified (2 sources) Non-smoker; Translations: [Nonsmoker] 10-08-2020 Episodic Residual codes; unclassified (6 sources) Flushing; Translations: [Flushing] 01-19-2023 Episodic Comment on above: relizen recommended, not interested in HRT Residual codes; unclassified (2 sources) Flushing; Translations: [Flushing] 01-19-2023 Episodic Residual codes; unclassified (5 sources) Positive measurement finding; Translations: [Positive test for human papillomavirus (HPV)] 01-28-2023 Episodic Comment on above: repeat pap in 2023 Unclassified (20 sources) Unclassified (20 sources) Eustachian tube dysfunction (381.81) Unclassified (20 sources) Nonsmoker; Translations: [Non-smoker] 10-31-2018 Unclassified (20 sources) Sinusitis,chronic (473.9) Unclassified (20 sources) Body mass index 20-24 - normal; Translations: [BMI 24.0-24.9, adult] 10-06-2020 Unclassified (18 sources) Patient encounter status; Translations: [Encounter for screening for lipid disorder] 10-06-2020 Unclassified (15 sources) Abnormal menses Unclassified (16 sources) Elevated blood pressure reading Unclassified (1 source) Encounter for immunization safety counseling; Translations: [Encounter for immunization safety counseling] Onset: 09-24-2025 Urinary tract infections (20 sources) Acute cystitis; Translations: [Acute cystitis without hematuria] Resolved: 08-30-2019 10-31-2018 Episodic Past or Other Problems Problem Classification Problem Date Documented Da te Episodic/Chronic Acute and chronic tonsillitis (16 sources) Amygdalolith; Translations: [Tonsil stone] Resolved: 08-30-2019 10-31-2018 Chronic Acute and chronic tonsillitis (16 sources) Acute and chronic tonsillitis Bacterial infection; unspecified site (17 sources) Tetanus; Translations: [Lock jaw] Onset: 09-28-2024 Resolved: 08-30-2019 10-31-2018 Episodic Mycoses (16 sources) Candidiasis of vagina; Translations: [Yeast vaginitis] Resolved: 08-30-2019 10-31-2018 Episodic Nonspecific chest pain (16 sources) Atypical chest pain; Translations: [Chest pain, atypical] Resolved: 08-30-2019 10-31-2018 Episodic Other circulatory disease (10 sources) Elevated blood pressure; Translations: [Elevated blood pressure reading] Resolved: 10-08-2020 10-06-2020 Episodic Other ear and sense organ disorders (16 sources) Otalgia; Translations: [Otalgia, unspecified ear] Resolved: 08-30-2019 10-31-2018 Episodic Other non-traumatic joint disorders (16 sources) Shoulder pain; Translations: [Shoulder pain, right] Resolved: 08-30-2019 10-31-2018 Episodic Other screening for suspected conditions (not mental disorders or infectious disease) (17 sources) Ultrasound scan abnormal; Translations: [Patient encounter status] Onset: 03-15-2025 10-31-2018 Episodic Other upper respiratory disease (16 sources) Allergic rhinitis; Translations: [Allergic rhinitis due to other allergen] Resolved: 05-12-2009 04-09-2014 Chronic Other upper respiratory infections (20 sources) Acute sinusitis, unspecified; Translations: [Acute laryngitis] Onset: 09-28-2024 Resolved: 08-30-2019 10-31-2018 Episodic Unclassified (16 sources) Acute cystitis without hematuria Unclassified (16 sources) Chest pain, atypical Unclassified (16 sources) LARYNGITIS, ACUTE, W/O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 which lowers the sensitivity of mammography. Bilateral Breast Mammographic Findings: No significant masses, calcifications or other abnormalities are identified. No suspicious masses, areas of developing architectural distortion, or suspicious calcifications. There has been no significant interval change. BI/SCRN MAMM (CAD)W/SEAN BILAT IMPRESSION: OVERALL FINAL ASSESSMENT: BIRADS 1 NEGATIVE RECOMMENDATION: Routine annual follow-up in 1 Year A letter with findings and recommendations will be mailed to the patient. Reading Location: [facility] CC: DANIEL Goldstein; Dr. Sue Baldwin MD Grinder Operator: Signed [facility] [employer]aire[employer] Hel[employer] Hand Office Visit Reporton 03-01-2025 [facility] Office Visit Report [facility] [address], [address] [place] [address] OFFICE VISIT Date of Service: 03/01/25 MR#: [id number] Acct: [id number] Name: YURI LOVE Rep #: [id number] : 1980 Provider: DANIEL lubin Age/Sex: 44/F Location: [facility] Status: Signed Intake Vital Signs 05/18/24 07:21 09/28/24 17:25 03/01/25 14:16 03/01/25 14:18 Height 5 ft 7 in 5 ft 6 in 5 ft 6 in 5 ft 6 in Weight: 150 lb 8 oz BMI 24.3 BP 112/71 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: No Is patient in pain?: No Allergies No Known Allergies Allergy (Verified 03/01/25 14:17) Medications ???Medication ???Instructions ???Recorded ???Confirmed ???Type NK 03/01/25 03/01/25 History Control Method: tubal PFSH Medical History Low iron Easy bruising Migraine headache Injury of head and neck Blackout Heartburn Non-smoker History of pain when walking Acute bacterial sinusitis Urinary frequency Dysuria Hematuria Surgical History Hx of LASIK History of endometrial ablation S/P laparoscopic cholecystectomy ( 08/15/18) history corrective eye surgery History of tubal ligation Social History number of children: 2 Smoking Status: Never smoker alcohol intake: never substance use type: does not use seatbelt use: always do you feel safe at home: Yes 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 Last PAP: 2023; normal. hpv neg. History of abnormal PAP: no. Last mammogram: 2023; normal. History of abnormal mammogram: no. Colon cancer screening: due Other preventative health care screenings: Sue Baldwin; PCP. Female Reproductive History Questions: metorrhagia: No, sexually active: Yes, dyspareunia: No and PCB: No Menopausal Symptoms: No hot flashes, No weight change, No mood changes, No difficulty concentrating, No sleep problems and No change in libido ROS Const ROS Unobtainable: All systems reviewed are unremarkable except as noted in H Constitutional: Reports system reviewed and no additional complaints, except as documented Eyes Eyes: Reports system reviewed and no additional complaints, except as documented ENT ENT: Reports system reviewed and no additional complaints, except as documented Cardio Card: Reports system reviewed and no additional complaints, except as documented Resp Resp: Reports system reviewed and no additional complaints, except as documented GI GI: Reports system reviewed and no additional complaints, except as documented : Reports system reviewed and no additional complaints, except as documented; Denies hot flashes Skin Skin/Breast: Reports system reviewed and no additional complaints, except as documented Neuro Neuro: Reports system reviewed and no additional complaints, except as documented Psych Psych: Reports system reviewed and no additional complaints, except as documented; Denies change in libido or difficulty concentrating Endo Endo: Reports system reviewed and no additional complaints, except as documented Brooks/Lymph Hematologic/Lymphatic : Reports system reviewed and no additional complaints, except as documented Aller/Immun Allergic/Immunologic: Reports system reviewed and no additional complaints, except as documented Exam Const General: cooperative, healthy appearing, comfortable, no acute distress, well developed and well groomed Neck Neck: normal visual inspection, full ROM, no lymphadenopathy and supple Thyroid: thyroid normal Chest Chest palpation inspection: normal inspection of the chest and normal palpation of entire chest wall Breast inspection: normal inspection of the breasts and normal inspection of the axillae Breast palpation: normal palpation of the breasts and normal palpation of the axillae Resp Effort Inspection: normal respiratory effort, able to speak in complete sentences and symmetric chest movement GI Inspection: normal to inspection Palpation: soft and no hepatosplenomegaly Speculum Exam - Vagina: normal appearance of the vagina and normal vaginal discharge Bimanual Exam- Vagina Uterus: normal bimanual exam, normal palpation and uterine size normal Bimanual Exam- Adnexa, other: normal Pelvic Support: normal Skin General: no rashes or lesions noted Psych Appearance: grossly normal and well kempt Coding (more content not included)... [facility] Urgent Care Visit Reporton 0 02-04-2025 Urgent Care Visit Report [facility] [address], [address] [place] [address] OFFICE VISIT Date of Service: 02/04/25 MR#: [id number] Acct: [id number] Name: YURI LOVE Rep #: [id number] : 1980 Provider: KERLINE Beal Age/Sex: 44/F Location: [facility] Status: Signed Intake Vital Signs 09/28/24 17:25 02/04/25 09:54 Height 5 ft 6 in Weight: 146 lb BMI 23.6 BP 110/62 100/60 Blood Pressure Location Lt brachial Position Sitting Sitting Respiration 16 Pulse 79 69 Pulse Source Monitor Temp 98.2 F 98.3 F Temp Source Oral Pulse Oximetry (%) 98 98 Oxygen Delivery Method room air room air Intake Visit Reasons: CONCERN FOR SINUS INFECTION Accompanied by: Self Allergies No Known Allergies Allergy (Verified 02/04/25 09:54) Medications ???Medication ???Instructions ???Recorded ???Confirmed ???Type amoxicillin 500 mg tablet 500 mg PO TID #30 tabs 02/04/25 Rx Nurse's Note: Patient has a ST that started . Patient states on tuesday she didn't have a voice. Patient states she has lot of pressure in her chest and eyes and left ear. Patient has no voice. Patient is coughing. 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 No complaints of fever, chills, myalgias, fatigue, runny nose, or nausea/vomiting/diarr hea. No complaints of chest pain/shortness of breath/dyspnea on exertion. No close contacts with similar complaints. No other associated symptoms and no other alleviating/aggravati ng factors. ROS Const Constitutional: No other (as above) Exam Const General: cooperative, healthy appearing and no acute distress Nutritional Appearance: average body habitus Orientation: alert, awake and oriented x3 HENMT Head: normal to inspection Ears: hearing grossly normal bilaterally, external ears normal, TM's normal bilaterally and EAC's normal Nose: external nose normal, nares normal, septum normal and no nasal discharge Face and sinus: normal facial exam, L>R maxillary sinus palpable tender (with L>R maxillary fullness to palpation) and face symmetric Mouth: oral mucosae normal, lip normal, tongue normal and oropharynx normal Throat: posterior oropharynx normal, tonsils normal, uvula midline and postnasal drainage (Purulent) Eyes General: appearance normal, both eyes and all related structures Neck Neck: normal visual inspection, full ROM, no meningeal signs, supple and lymphadenopathy (Bilateral anterior cervical lymph node swelling/tender to palpation) Neck mass: No Thyroid: thyroid normal Chest Chest palpation inspection: normal inspection of the chest Resp Effort Inspection: normal respiratory effort and able to speak in complete sentences Auscultation: Bilateral: Clear to Auscultation Cardio Palpation: normal PMI Rate: regular rate Rhythm: regular rhythm Heart Sounds: S1 normal, S2 normal, no gallops, no murmurs and no rubs Pulses: radial pulses present GI Inspection: normal to inspection Skin General: no rashes or lesions noted Neuro General: patient alert, patient awake and patient oriented x3 Cognition: normal cognition Speech: speech normal Psych Appearance: grossly normal Mental Status: mental status grossly normal Mood: congruent mood Affect: normal affect Speech and Movement: speech and movement normal Attitude: cooperative Diagnoses Acute maxillary sinusitis, unspecified J01.00 Assessment and Plan Assessment and Plan (1) Acute maxillary sinusitis, unspecified: Status: Acute Plan: Amoxicillin as prescribed today. Supportive measures as instructed today. Declined work excuse upon offering. Follow-up with PCP in 3 to 5 days should symptoms not improve, sooner should symptoms worsen or any other con (more content not included)... [facility] Urgent Care Visit Reporton 1 11-28-2023 Urgent Care Visit Report [facility] [address], [address] [place] [address] OFFICE VISIT Date of Service: 09/28/24 MR#: [id number] Acct: [id number] Name: YURI LOVE Rep #: [id number] : 1980 Provider: KERLINE Goyal Age/Sex: 44/F Location: [facility] Status: Signed Intake Vital Signs 05/18/24 07:21 09/28/24 17:25 Height 5 ft 7 in 5 ft 6 in Weight: 146 lb BMI 23.6 BP 110/62 Blood Pressure Location Lt brachial Position Sitting Respiration 16 Pulse 79 Pulse Source Monitor Temp 98.2 F Temp Source Oral Pulse Oximetry (%) 98 Oxygen Delivery Method room air Intake Visit Reasons: SORE THROAT, SINUS PAIN Chief Complaint: SINUS INFECTION SX Drama Director Required: No Accompanied by: Self Is patient in pain?: No Allergies No Known Allergies Allergy (Verified 09/28/24 17:26) Medications ???Medication ???Instructions ???Recorded ???Confirmed ???Type amoxicillin 875 mg-potassium 1 tab PO Q12H 10 days #20 tabs 09/28/24 09/28/24 Rx clavulanate 125 mg tablet Nurse's Note: pt states she has sinus infection sx couple times a year. pt stated she recently had flu shot. 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 Patient denies fever, chills, sweats. No nausea, vomiting or diarrhea. No loss of taste or smell. No other associated symptoms or alleviating/aggravati ng factors. ROS Const Constitutional: Positive for other (ROS negative x 6 except what is described above) Exam Const General: cooperative and healthy appearing HENMT Head: normal to inspection Ears: hearing grossly normal bilaterally, TM's normal bilaterally and EAC's normal Nose: nasal discharge purulent Face and sinus: sinus tenderness frontal and maxillary Mouth: oral mucosae normal Throat: abnormal tonsil bilaterally erythema and hypertrophy 1+ and postnasal drainage Resp Effort Inspection: normal respiratory effort Auscultation: Bilateral: Clear to Auscultation Cardio Palpation: normal PMI Rate: regular rate Rhythm: regular rhythm Neuro General: patient alert and CN's II-XI intact bilaterally Psych Appearance: grossly normal Mental Status: mental status grossly normal Coding Level of Care Code Off vis,est,level 3 Diagnoses Acute bacterial sinusitis J01.90; B96.89 Assessment and Plan Assessment and Plan (1) Acute bacterial sinusitis: Status: Acute Plan: Augmentin as prescribed today. Encouraged to get plenty of rest, drink lots of clear liquids, and use Tylenol or Ibuprofen (unless contraindicated) for fever and comfort. Patient also educated on ot her symptomatic management techniques. To be seen in 7-10 days if no improvement; sooner if worsening of symptoms. Patient advised of potential red flags and when appropriate to report to the ED. Patient verbalized understanding and agreement with all the above. Medications: New amoxicillin-pot clavulanate 875-125 mg 1 TAB PO Q12H 10 days 20 tabs 0RF J01.90 - Acute sinusitis, unspecified 09/28/24 1737 Date Justin CHURCHILL Cosigner Signature: Date (if applicable) CC: [facility] Absolute lymphocyte countOrd ered By: Sue Baldwin on 03-16-2024 Lymphocytes Auto (Unsp spec) [#/Vol] 1.37 10*3/uL 0.83-4.51 [facility] Automated lymphocyte count a s percentage of total leukocytesOrdered By: Sue Baldwin on 03-16-2024 Lymphocytes/100 WBC Auto (Unsp spec) 24.1 % 19-41 [facility] Basophil percentageOrdered B y: Sue Baldwin on 03-16-2024 Basophils/100 WBC (Bld) 0.4 % 0-1 [facility] Bilirubin [Mass/Vol] 1.00 mg/dL 0.20-1.00 [facility] Comment on above: For patients on eltr ombopag therapy, use of Dimension [place] TBIL is not recommended. Chloride [Moles/Vol] 108 mmol/L 98-107 [facility] Cholesterol [Mass/Vol] 212 mg/dL <200 [facility] Comment on above: <200 mg/dL Desirable 200-240 mg/dL Borderline >240 mg/dL High Risk Eosinophils/100 WBC (Bld) 1.4 % 0-5 [facility] Glucose [Mass/Vol] 83 mg/dL 74-106 [facility] Hemoglobin (Bld) [Mass/Vol] 12.9 g/dL 12.0-15.0 [facility] Monocytes/100 WBC (Bld) 6.9 % 0-10 [facility] Neutrophils (Bld) [#/Vol] 3.8 10*3/uL 2.0-7.7 [facility] Neutrophils/100 WBC (Bld) 66.7 % 47-70 [facility] Potassium [Moles/Vol] 3.6 mmol/L 3.5-5.1 [facility] Protein [Mass/Vol] 7.5 g/dL 6.4-8.2 [facility] Sodium [Moles/Vol] 141 mmol/L 136-145 [facility] Triglyceride [Mass/Vol] 56 mg/dL <199 [facility] Comment on above: The drugs N-Acetylcy steine and Metamizole may falsely depress this assay.Serum Triglycerides Reference Interval Normal <150 mg/dL Borderline high 150 - 199 mg/dL High 200 - 499 mg/dL Very High > or = 500 mg/dL WBC (Bld) [#/Vol] 5.7 10*3/uL 4.4-11.0 [facility] Determination of erythrocyte mean corpuscular volume (MCV)Ordered By: Sue Baldwin on 03-16-2024 MCV (RBC) [Entitic vol] 95.1 fL 81-99 [facility] Erythrocyte distribution wid th ratioOrdered By: Sue Nicolasa on 03-16-2024 Erythrocyte distribution width (RBC) [Ratio] 12.5 % 11.6-14.6 [facility] Erythrocyte distribution wid th standard deviationOrdered By: [facility] Center[facility] on 03-16-2024 Erythrocyte distribution width (RBC) [Entitic vol] 43.2 fL 35.1-43.9 [facility] Hematocrit Auto (Bld) [Volum e fraction]Ordered By: [facility] on 03-16-2024 Hematocrit (Bld) [Volume fraction] 39.2 % 37-47 [facility] Immature granulocytes/100 WB C Auto (Bld)Ordered By: [facility] on 03-16-2024 Immature granulocytes/100 WBC (Bld) 0.500 % 0.0-0.9 [facility] Comment on above: IG% - Immature Granu locytes (promyelocytes, myelocytes and metamyelocytes) > 1% indicates that a LEFT SHIFT is Present. Laboratory - Chemistry and C hemistry - challengeOrdered By: Sue Baldwin on 03-16-2024 Albumin/Globulin [Mass ratio] 1.0 {ratio} 0.9-2.4 [facility] ALP [Catalytic activity/Vol] 106 U/L 45-117 [facility] ALT [Catalytic activity/Vol] 115 U/L 13-56 [facility] Cholesterol in HDL [Mass/Vol] 79 mg/dL >40 [facility] Comment on above: The drugs N-Acetylcy steine and Metamizole may falsely depress this assay. Reference Range HDL <40 mg/dL Low HDL Cholesterol HDL >or= 60 mg/dL High HDL Cholesterol Cholesterol in LDL [Mass/Vol] 122 mg/dL 0-130 [facility] CO2 [Moles/Vol] 29.0 mmol/L 21.0-32.0 [facility] Globulin (S) [Mass/Vol] 3.7 g/dL 2.2-4.2 [facility] Urea nitrogen/Creatinine [Mass ratio] 30.6 mg/mg 10-20 [facility] Laboratory - Hematology and Cell countsOrdered By: Sue Baldwin on 03-16-2024 MCH (RBC) [Entitic mass] 31.3 pg 27.0-32.0 [facility] MCHC (RBC) [Mass/Vol] 32.9 g/dL 32-36 [facility] Nucleated RBC/100 WBC (Bld) [Ratio] 0 % 0-5 [facility] Platelet mean volume (Bld) [Entitic vol] 9.5 fL 6.2-12.0 [facility] Platelets (Bld) [#/Vol] 222 10*3/uL 150-450 [facility] No Panel InformationOrdered By: Sue Baldwin on 03-16-2024 Estimated GFR (MDRD) Amer 133 mL/min >60 [facility] Comment on above: GFR Calc Estimated GFR (MDRD) Non-Af Amer 110 mL/min >60 [facility] Comment on above: Non- GFR Calc Vitamin D 25-Hydroxy 31.4 ng/mL [facility] Comment on above: Vitamin D 25(OH) Sta tus Range Deficiency <20 ng/mL (50nmol/L) Insufficiency 20 - 30 ng/mL (50 - 75 nmol/L) Sufficiency 30 - 100 ng/mL (75 - 250 nmol/L) Toxicity >100 ng/mL (>250 nmol/L) VLDL Cholesterol 11 mg/dL 5-40 [facility] RBC Auto (Bld) [#/Vol]Ordere d By: Sue Baldwin on 03-16-2024 RBC (Bld) [#/Vol] 4.12 10*6/uL 4.2-5.4 [facility] Serum or plasma calcium boston urement (mass/volume)Ordered By: Sue Baldwin on 03-16-2024 Calcium [Mass/Vol] 8.9 mg/dL 8.5-10.1 [facility] Serum or plasma creatinine m easurement (mass/volume)Ordered By: Sue Baldwin on 03-16-2024 Creatinine [Mass/Vol] 0.62 mg/dL 0.55-1.02 [facility] Comment on above: The validity of the calculated GFR & GFRAA in patients over 70 years has not been determined. Clinical correlation is essential. Serum or plasma urea nitroge n measurement (mass/volume)Ordered By: Sue Baldwin on 03-16-2024 Urea nitrogen [Mass/Vol] 19 mg/dL 7-18 [facility] Thin prep Papanicolaou smear with manual screeningOrdered By: Sue Nicolasa on 03-16-2024 Thin prep Papanicolaou smear with manual screening 3.8 g/dL 3.2-5.0 [facility] Thin prep Papanicolaou smear with manual screening 84 U/L 15-37 [facility] Thin prep Papanicolaou smear with manual screening 4 5-15 [facility] Cervical or vaginal specimen microscopic examination by liquid based cytology (reportOrdered By: Tonya Goldstein on 01-25-2024 Cytology report Cyto stain.thin prep Doc (Cvx/Vag) Comment . [facility] Comment on above: Criteria not met, HP V Genotype not performed.Performed at: [facility] Cyto [id number] [place], [place] [id number] Director: Marc Brooks MD, Phone: [phone] at: [facility] [id number] Director: Crystal Llanes MD, Phone: [phone] at: =[facility] [id number] Director: Crystal Llanes MD, Phone: [phone] Cervical or vagninal specime n microscopic examination by cytology stain (reported asOrdered By: Tonya Goldstein on 01-25-2024 Cytology report Cyto stain Doc (Cvx/Vag) Comment . [facility] Comment on above: The Pap smear is a s creening test designed to aid in thedetection of premalignant and malignant conditions of theuterine cervix. It is not a diagnostic procedure andshould not be used as the sole means of detecting cervicalcancer. Both false-positive and false-negative reports dooccur. Detection in cervical specim en of any of human papilloma virus (HPV) 16, 18, 31, 33,Ordered By: Tonya Goldstein on 01-25-2024 HPV 16+18+31+33+35+39+45+51+5 2+56+58+59+66+68 DNA Probe+sig amp Ql (Cvx) Negative Negative [facility] Comment on above: This nucleic acid am plification test detects fourteen high-risk HPV types (16,18,31,33,35,39,45,51,52,56,58,59,66,68)without differentiation. Laboratory - CytologyOrdered By: Tonya Goldstein on 01-25-2024 Rubber Calender Helper Cyto stain Nom (Cvx/Vag) [ID] Comment . [facility] Comment on above: Elizabet Winn, Cytotec hnologist (ASCP) Laboratory - Miscellaneous t estsOrdered By: Tonya Goldstein on 01-25-2024 Service comment (Unsp spec) [Interp] . . [facility] Thin prep Papanicolaou smear with manual screeningOrdered By: Tonya Goldstein on 01-25-2024 Thin prep Papanicolaou smear with manual screening Comment . [facility] Comment on above: NEGATIVE FOR INTRAEP ITHELIAL LESION OR MALIGNANCY. This liquid based Th inPrep(R) pap test was screened withthe use of an image guided system. Cervical or vagninal specime n microscopic examination by cytology stain (reported asOrdered By: Tonya Goldstein on 01-19-2023 Cytology report Cyto stain Doc (Cvx/Vag) Comment . [facility] Comment on above: The Pap smear is a s creening test designed to aid in thedetection of premalignant and malignant conditions of theuterine cervix. It is not a diagnostic procedure andshould not be used as the sole means of detecting cervicalcancer. Both false-positive and false-negative reports dooccur. Cervical specimen human yaz lloma virus (HPV) type 16 DNA detection by probe with sigOrdered By: Tonya Goldstein on 01-19-2023 HPV 16 DNA Probe+sig amp Ql (Cvx) Negative Negative [facility] Detection in cervical specim en of any of human papilloma virus (HPV) 16, 18, 31, 33,Ordered By: Tonya Goldstein on 01-19-2023 HPV 16+18+31+33+35+39+45+51+5 2+56+58+59+66+68 DNA Probe+sig amp Ql (Cvx) Positive Negative [facility] Comment on above: This nucleic acid am plification test detects fourteen high-risk HPV types (16,18,31,33,35,39,45,51,52,56,58,59,66,68)without differentiation. Laboratory - CytologyOrdered By: Tonya Goldstein on 01-19-2023 Rubber Calender Helper Cyto stain Nom (Cvx/Vag) [ID] Comment . [facility] Comment on above: Grant Restrepo, Cytotec hnologist (ASCP) Laboratory - Miscellaneous t estsOrdered By: Tonya Goldstein on 01-19-2023 Service comment (Unsp spec) [Interp] Comment . [facility] Comment on above: This liquid based Th inPrep(R) pap test was screened withthe use of an image guided system. Service comment (Unsp spec) [Interp] . . [facility] Liquid-based cerv Pap + CT/G C by JUVE w reflex to high-risk HPV for ASCUSOrdered By: Tonya Goldstein on 01-19-2023 Cytology report Cyto stain.thin prep Doc (Cvx/Vag) Comment . [facility] Comment on above: Criteria met, see HP V Genotype results. No Panel InformationOrdered By: Tonya Goldstein on 01-19-2023 HPV Type 18 Comment Negative Negative [facility] Comment on above: Performed at: - L [address] [id number] Director: Crystal Llanes MD, Phone: [phone] at: =G - [facility] [address], [place] [id number] Director: Crystal Llanes MD, Phone: [phone] Pathology report final diagnosis Narrative Comment . [facility] Comment on above: NEGATIVE FOR INTRAEP ITHELIAL LESION OR MALIGNANCY. Culture, urineon 03-29-2022 Bacteria identified Cx Nom (U) Positive [facility] Work Phone: Laboratory - Chemistry and C hemistry - challengeon 03-29-2022 Bilirubin Ql (U) Negative [facility] Work Phone: Glucose Ql (U) Negative [facility] Work Phone: Ketones Ql (U) Small (15+) [facility] Work Phone: pH (U) 5.0 [pH] [facility] Work Phone: Specific gravity (U) [Rel density] 1.030 [facility] Work Phone: Urobilinogen (U) [Mass/Vol] Negative [facility] Work Phone: Laboratory - Hematology and Cell countson 03-29-2022 Hemoglobin Ql (U) Hemolyzed [facility] Work Phone: Laboratory - Specimen inform ationon 03-29-2022 Clarity (U) Cloudy [facility] Work Phone: Color (U) YELLOW [facility] Work Phone: Laboratory - Urinalysison Nitrite Ql (U) Negative [facility] Work Phone: Protein Ql (U) Negative [facility] Work Phone: No Panel Informationon 03-29 Urine Leukocytes Positive [facility] Work Phone: Urine Non-Hemolyzed Blood Moderate [facility] Work Phone: Rapid Strep Test, Office (05 [phone])Ordered By: Laura Flores on 08-30-2019 S. pyogenes Ag EIA Ql (Throat) Negative [facility]; [facility] Work Phone: S. pyogenes Ag IA Ql (Unsp spec) Negative Normal [facility] Work Phone: GALLBLADDEROrdered By: Brenna parada Head Host/Hostess on 08-15-2018 GALLBLADDER See Note Normal [facility] Work Phone: Comment on above: Patient: JOSE LUIS LOVE RA : 1980 (37/F) Acct Num: [id number] Phys: Giselle BAPTISTE,Gaston Unit Num: [id number] Loc: [facility] [place] [facility] [place] Specimen: [id number] Received: 08/15/18 - 1506 Spec Type: GALLBLADDE TISSUES 1 TISSUES: Gallbladder, NOS GROSS DESCRIPTION Received is one container labeled with the patient's name and designated gallbladder. The specimen consists of a gallbladder measuring 10 cm in lengthand [...] node measuring 1.3 cm in greatest dimension. Business Performance Analyst sections from the gallbladder wall, cystic duct and entire possible lymph node are submitted in one cassette. / SJ:arley 08/15/18 TC:3 CPT: 63473 HEADER OPERATION: Laparoscopic cholecystectomy PRE-OP DIAGNOSIS: Acute cholecystitis without obstruction; cholelithiasis, right upper quadrant pain TISSUE SUBMITTED: Gallbladder MICROSCOPIC DESCRIPTION Slides are reviewed. MICROSCOPIC DIAGNOSIS Gallbladder, cholecystectomy: Chronic cholecystitis and cholelithiasis. AM:arley 08/16/18 Signed Johnathon Shon 08/16/18 ,UrineOrdered By: Efraín alcantar Head Host/Hostess on 08-15-2018 ,Urine Negative Normal [facility] Work Phone: Comment on above: Very dilute urine sp ecimens, as indicated by a low specificgravity, may not contain account development representative levels of hCG.If is still suspected, a first morning urinespecimen should be collected 48 hours later and tested. Troponin-IOrdered By: Rehabilitation Specialist on 06-15-2018 Troponin I.cardiac mass conc ng/mL Normal [facility] Work Phone: Comment on above: TROPONIN-I EXPECTED VALUES <0.045 Negative 0.045 - 0.590 Consistent with Cardiac Damage > OR = 0.600 Critical Value Not every elevated troponin is indicative of WA. Thesevalues should be used with clinical judgement in examiningthe patient's clinical picture for diagnosis. To establisha diagnosis of WA versus myocardial injury, there must be ademonstrated rise and/or fall in the troponin values, inaddition to ischemic symptoms, EKG changes, new regionalwall motion abnormality, and/or angiographical evidence. PLEASE NOTE: REFERENCE RANGES EDITED 18 Basic Metabolic Profile (BMP )Ordered By: Rehabilitation Specialist on 06-14-2018 Basic metabolic 2000 panel 105.53 ml/min Normal [facility] Work Phone: Basic metabolic 2000 panel 125 mL/min Normal [facility] Work Phone: Comment on above: GFR Calc Basic metabolic 2000 panel 104 mL/min Normal [facility] Work Phone: Comment on above: Non- GFR Calc Basic metabolic 2000 panel 0.67 mg/dL Normal 0.55-1.02 [facility] Work Phone: Comment on above: The validity of the calculated GFR AND GFRAA in patients over70 years has not been determined. Clinical correlation isessential. Basic metabolic 2000 panel 115 mg/dL Abnormal 74-106 [facility] Work Phone: Comment on above: Fasting Glucose resu lt from 100 to 125 mg/dLsuggests IMPAIRED HOMEOSTASIS per A.D.A. criteria.Please note revised GLUCOSE reference range evkcmhwxt23/02/2018. Basic metabolic 2000 panel 15 mg/dL Normal 7-18 [facility] Work Phone: Basic metabolic 2000 panel 9.2 mg/dL Normal 8.5-10.1 [facility] Work Phone: Basic metabolic 2000 panel 104 mmol/L Normal 98-107 [facility] Work Phone: Basic metabolic 2000 panel 30.0 mmol/L Normal 21.0-32.0 [facility] Work Phone: Basic metabolic 2000 panel 139 mmol/L Normal 136-145 [facility] Work Phone: Basic metabolic 2000 panel 5 1 Normal 5-15 [facility] Work Phone: Basic metabolic 2000 panel 22.4 {RATIO} Abnormal 10-20 [facility] Work Phone: Basic metabolic 2000 panel 3.5 mmol/L Normal 3.5-5.1 [facility] Work Phone: CBC W/Diff, AutomatedOrdered By: Rehabilitation Specialist on 06-14-2018 Basophils/100 WBC Auto (Bld) 0.2 % Normal 0-1 [facility] Work Phone: Eosinophils/100 WBC Auto (Bld) 1.0 % Normal 0-5 [facility] Work Phone: Erythrocyte distribution width Auto Ratio (RBC) 12.6 % Normal 11.6-14.6 [facility] Work Phone: Hematocrit Auto Volume Fraction (Bld) 38.2 % Normal 37-47 [facility] Work Phone: Hemoglobin mass conc (Bld) 12.5 g/dL Normal 12.0-15.0 [facility] Work Phone: Lymphocytes/100 WBC Auto (Bld) 26.9 % Normal 19-41 [facility] Work Phone: MCH Auto Entitic mass (RBC) 31.8 pg Normal 27.0-32.0 [facility] Work Phone: MCHC Auto mass conc (RBC) 32.7 {g/gl} Normal 32-36 [facility] Work Phone: MCV Auto Entitic volume (RBC) 97.2 fL Normal 81-99 [facility] Work Phone: Monocytes/100 WBC Auto (Bld) 5.9 % Normal 0-10 [facility] Work Phone: Neutrophils/100 WBC Auto (Bld) 65.8 % Normal 47-70 [facility] Work Phone: Platelet mean volume Auto Entitic volume (Bld) 9.5 fL Normal 6.2-12.0 [facility] Work Phone: Platelets Auto #/vol (Bld) 247 10*3/uL Normal 150-450 [facility] Work Phone: RBC Auto #/vol (Bld) 3.93 {M/mm3} Abnormal 4.2-5.4 [facility] Work Phone: WBC Auto #/vol (Bld) 6.3 10*3/uL Normal 4.4-11.0 [facility] Work Phone: CBC W/Diff, Automated 0.200 % Normal 0.0-0.9 [facility] Work Phone: Comment on above: IG% - Immature Granu locytes (promyelocytes, myelocytes andmetamyelocytes) > 1% indicates that a LEFT SHIFT is Present. CBC W/Diff, Automated 4.2 {X10_3/uL} Normal 2.0-7.7 [facility] Work Phone: CBC W/Diff, Automated 1.70 {X10_3/ul} Normal 0.83-4.51 [facility] Work Phone: CBC W/Diff, Automated 43.9 fL Normal 35.1-43.9 [facility] Work Phone: Troponin-IOrdered By: Rehabilitation Specialist on 06-14-2018 Troponin I.cardiac mass conc ng/mL Normal [facility] Work Phone: Comment on above: TROPONIN-I EXPECTED VALUES <0.045 Negative 0.045 - 0.590 Consistent with Cardiac Damage > OR = 0.600 Critical Value Not every elevated troponin is indicative of WA. Thesevalues should be used with clinical judgement in examiningthe patient's clinical picture for diagnosis. To establisha diagnosis of WA versus myocardial injury, there must be ademonstrated rise and/or fall in the troponin values, inaddition to ischemic symptoms, EKG changes, new regionalwall motion abnormality, and/or angiographical evidence. PLEASE NOTE: REFERENCE RANGES EDITED 18 Throat Culture (37592)Ordere d By: Rehabilitation Specialist on 05-02-2017 Bacteria identified Respiratory culture Nom (Unsp spec) Final report Normal [facility] Work Phone: Comment on above: PERFORMED BY: [employer] [id number] [facility] [id number] Information: NO NASO AT UPLOAD SRC:TH Bacteria identified Respiratory culture Nom (Unsp spec) RRF Normal [facility] Work Phone: Comment on above: Routine respiratory jeanne PERFORMED BY: [employer] [id number] [facility] [id number] Information: NO NASO AT UPLOAD SRC:TH ENDOMETRIAL BX/CURETTINGSOrd ered By: Rehabilitation Specialist on 10-22-2016 ENDOMETRIAL BX/CURETTINGS See Note Normal [facility] Work Phone: Comment on above: Patient: JOSE LUIS LOVE RA : 1980 (36/F) Acct Num: [id number] Phys: Ian BAPTISTE,[facility] Unit Num: [id number] Loc: [facility] Specimen: [id number] Received: 10/22/161656 Spec Type: ENDOM BX/C TISSUES TISSUES: COMMENT A. Immunohistochemistry ([id number]) for surrogate HPV marker (p16) will be reported separately. GROSS DESCRIPTION A - Received is one container labeled with the patient's name and designated cervical biopsy. The specimen consists of multiple irregular fragments of light trejo soft tissue that in aggregate measure 0.7 x 0.3 x 0.1 cm. The specimen is totally submitted in one cassette. B - Received is one container labeled with the patient's name and designated ECC. The specimen consists of dark trejo mucoid material that in aggregate measure 1.5 x 1 x <0.1 cm. The specimen is totally submitted in one cassette. / AM:arley 10/25/16 TC:3 CPT: 51854 x2 HEADER OPERATION: Colposcopy PRE-OP DIAGNOSIS: LGSIL TISSUE SUBMITTED: A - Cervical biopsy four-quad, B - ECC MICROSCOPIC DESCRIPTION Slides are reviewed. MICROSCOPIC DIAGNOSIS A. 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 Squamous metaplasia and chronic inflammation. B. Endocervix, curettings: Strips of benign superficial endocervix. No evidence of dysplasia. AM:arley 10/26/16 Signed [facility] 10/27/16 IMMUNOHISTOCHEMISTRYOrdered By: Rehabilitation Specialist on 10-22-2016 IMMUNOHISTOCHEMISTRY See Note Normal Comp rehensive [facility] Work Phone: Comment on above: Patient: JOSE LUIS LOVE RA : 1980 (36/F) Acct Num: [id number] Phys: Jesus Sosa MD Unit Num: [id number] Loc: [facility] Specimen: [id number] Received: 10/26/163 Spec Type: IMMUNO TISSUES TISSUES: SPECIMEN INFORMATION: Tissue Source: A - Cervical biopsy four-quad Clinical Info: LGSIL Specimen Number: [id number] CPT code: 47532, 12273 METHODOLOGY: Deparaffinized sections of prefer/formalin-fixed tissue or PAP/DQ stained slides are incubated with monoclonal/polyclonal antibodies/oligonucleotide probes. Localization is made via biotin free immunoperoxidase method. Appropriate controls are performed and reacted as expected. Results on target cell population are indicated in the following table: RESULTS: ANTIBODY / CLONE RESULT Block A P16 (E6H4) positive, focal, dim, patchy Ki-67 (30-9) positive, low These tests were developed and their performance characteristics determined by [facility]. They may not have been cleared or approved by the U.S. Food and Drug Administration. The FDA has determined that such clearance or approval is not necessary. INTERPRETATION: A. Cervix, four quad biopsy: Consistent with mild squamous dysplasia, DIANNA I (LGSIL). AM:arley 10/27/16 PHYSICIAN AND INSTITUTION [place] [id number] Signed [facility] 10/27/16 CERVICALOrdered By: Ric lyn on 09-20-2016 CERVICAL See Note Normal [facility] Work Phone: Comment on above: Patient: JOSE LUIS LOVE RA : 1980 (35/F) Acct Num: [id number] Phys: Ian BAPTISTE,Jesus Unit Num: [id number] Loc: [facility] Specimen: [id number] Received: 09/20/162144 Spec Type: CERV TISSUES TISSUES: GROSS DESCRIPTION Received is one container labeled with the patient's name and designated cervical polyp. The specimen consists of multiple fragments of trejo mucoid tissue that in aggregate measure 2 x 0.6 x 0.1 cm. The specimen is totally submitted in one cassette. / SJ:arley 09/21/16 TC:1 CPT:09402 HEADER OPERATION: Cervical polypectomy PRE-OP DIAGNOSIS: N84.1 TISSUE SUBMITTED: Cervical polyp MICROSCOPIC DESCRIPTION Slides are reviewed. MICROSCOPIC DIAGNOSIS Cervical polyp, polypectomy: Fragments of benign endocervical polyp, inflamed. AM:arley 09/22/16 Signed [facility] 09/22/16 PAP I-G w/ Reflex to HR HPVO rdered By: Rehabilitation Specialist on 09-20-2016 Protein mass conc Comment Normal [facility] Work Phone: Comment on above: R87.612 PAP I-G w/ Reflex to HR HPV . Normal [facility] Work Phone: PAP I-G w/ Reflex to HR HPV Comment Normal [facility] Work Phone: Comment on above: This liquid based Th inPrep(R) pap test was screened withthe use of an image guided system. Reggie Shaffer, Pathologist Satisfactory for radha lawrence. Endocervical and/or squamous metaplasticcells (endocervical component) are present. EPITHELIAL CELL ABNO RMALITY.LOW-GRADE SQUAMOUS INTRAEPITHELIAL LESION (LGSIL); MILD DYSPLASIA ISPRESENT. Moira Enriquez, Cyto technologist The Pap smear is a s creening test designed to aid in thedetection of premalignant and malignant conditions of theuterine cervix. It is not a diagnostic procedure andshould not be used as the sole means of detecting cervicalcancer. Both false-positive and false-negative reports dooccur. See below for HPV te sting results. PAP I-G w/ Reflex to HR HPV Positive Abnormal [facility] Work Phone: Comment on above: This high-risk HPV t est detects thirteen high-risk types(16/18/31/33/35/39/45/51/52/56/58/59/68) withoutdifferentiation.Performed at: [employer] [place] [id number] Director: Fatimah Glass MD, Phone: [phone] at: [facility] [employer] [id number] Director: Crystal Llanes MD, Phone: [phone] at: =[facility] [employer] [id number] Director: Crystal Llanes MD, Phone: [phone] Culture, WoundOrdered By: stem Head Host/Hostess on 05-17-2016 Bacteria identified Cx Nom (Wound) See Note Normal [facility] Work Phone: Comment on above: Gram StainGram Stain Rare Red Blood Cells Rare Red Cell Stroma No organisms seen Wound CultureNo growth aerobically. MRSA Wound DNA by PCROrdered By: Rehabilitation Specialist on 05-17-2016 MRSA Wound DNA by PCR Negative Normal Com [facility]hens[facility] Work Phone: URINE MICHI CULTURE-RENE COL C OUNT (08087)Ordered By: Rehabilitation Specialist on 05-06-2016 Bacteria identified Cx Nom (U) Klebsiella pneumoniae Abnormal [facility] Work Phone: Comment on above: Greater than 100,000 colony forming units per mL PATIENT NOT FASTINGP ERFORMED BY: ALDO [employer] [id number] [facility] [id number] Information: SRC:[facility] [place] [id number] Bacteria identified Cx Nom (U) Final report Abnormal [facility] Work Phone: Comment on above: PATIENT NOT FASTINGP ERFORMED BY: ALDO [id number] [facility] [id number] Information: SRC:UR [id number] Other Antibiotic [facility] prehensive [facility] Work Phone: Comment on above: S = Susceptible; I = Intermediate; R = Resistant P = Positive; N = Negative MICS are expressed in micrograms per mL Antibiotic RSLT#1 RSLT#2 RSLT#3 RSLT#4Amoxicillin/Clavulanic Acid SAmpicillin RCefepime SCeftriaxone SCefuroxime SCephalothin SCiprofloxacin SErtapenem SGentamicin SImipenem SLevofloxacin SNitrofurantoin IPiperacillin STetracycline RTobramycin STrimethoprim/Sulfa S PATIENT NOT FASTINGP ERFORMED BY: [employer] [id number] [facility] [id number] Information: SRC:[facility] [place] [id number] Urinalysis, Office ([id number])Or dered By: Amy Chow on 05-06-2016 Bilirubin Ql (U) Negative Normal [facility] ns[facility] Work Phone: Bilirubin Ql (U) Negative Normal [facility] ns[facility]; [facility] Work Phone: Glucose Test strip (U) [Mass/Vol] Negative Normal [facility]; [facility] Work Phone: Glucose Test strip mass conc (U) Negative Normal [facility] Work Phone: Hemoglobin Ql (U) Negative Normal [facility] ens[facility] Work Phone: Hemoglobin Ql (U) Negative Normal [facility]; [facility] Work Phone: Hemoglobin Test strip Ql (U) Negative Normal [facility] Work Phone: Ketones Ql (U) Negative Normal [facility] Work Phone: Ketones Ql (U) Negative Normal [facility]; [facility] Work Phone: Leukocyte esterase Test strip Ql (U) Moderate Normal [facility] Work Phone: Nitrite Ql (U) Negative Normal [facility] Work Phone: Nitrite Ql (U) Negative Normal [facility]; [facility] Work Phone: Nitrite Test strip Ql (U) Negative Normal [facility] Work Phone: pH (U) 7.0 [pH] Normal [facility] Work Phone: Comment on above: 6.5 pH Test strip (U) 7.0 [pH] Normal Compre[facility] ens[facility] Work Phone: Comment on above: 6.5 Protein Ql (U) Negative Normal [facility] Work Phone: Protein Ql (U) Negative Normal [facility]; [facility] Work Phone: Protein Test strip Ql (U) Negative Normal [facility] Work Phone: Specific gravity Relative Density (U) 1.025 1 Normal [facility] Work Phone: Urobilinogen mass/time (24H U) Normal Normal [facility] Work Phone: Rapid Strep Test, Office (03 050)Ordered By: Amy Chow on 07-25-2015 S. pyogenes Ag EIA Ql (Throat) Negative Normal [facility]; [facility] Work Phone: S. pyogenes Ag IA Ql (Unsp spec) Negative Normal [facility] Work Phone: FALSOrdered By: System Manag er on 10-24-2014 FALS Normal [facility] Work Phone: Comment on above: Patient: JOSE LUIS LOVE RA : 1980 (34/F)Acct Num: [id number] Phys: Bina Sosa MD Num: [id number] Loc: SDCSpecimen: [id number] Received: 10/24/141102Spec Type: FALL TUBESTISSUESTISSUES:GROSS DESCRIPTIONReceived is one container labeled with the patient name and designatedbilateral fallopian tube segments. The specimen consists of bilateralsegments of fallopian tube including fimbrial ends. They are not identified asright and left. One of the segments measures 4 cm in length and 0.5 cm indiameter. The other segment measures 4.5 cm in length and 0.5 cm in diameter.The entire specimen is submitted in two cassettes with each cassette containingone segment of tube. / : 10/24/14 TC:4CPT: 95614 [id number]: Bilateral partial salpingectomyPRE-OPERATIVE DIAGNOSIS: Desires permanent sterilizationTISSUE SUBMITTED: Bilateral fallopian tube segmentsMICROSCOPIC DIAGNOSISBilateral fallopian tube segments:Completely transected segments of fallopian tubes including fimbrial end, nopathologic diagnosis.: 10/25/14Signed Sunil Lion 10/25/14 CBCOrdered By: System Manage r on 10-14-2014 Erythrocyte distribution width Auto Ratio (RBC) 13.1 % Normal 11.6-14.6 [facility] Work Phone: Hematocrit Auto Volume Fraction (Bld) 37.4 % Normal 37-47 [facility] Work Phone: Hemoglobin mass conc (Bld) 12.3 g/dL Normal 12.0-15.0 [facility] Work Phone: MCH Auto Entitic mass (RBC) 31.5 pg Normal 27.0-32.0 [facility] Work Phone: MCHC Auto mass conc (RBC) 32.9 {g/gl} Normal 32-36 [facility] Work Phone: MCV Auto Entitic volume (RBC) 95.7 fL Normal 81-99 [facility] Work Phone: Platelet mean volume Auto Entitic volume (Bld) 9.8 fL Normal 6.2-12.0 [facility] Work Phone: Platelets Auto #/vol (Bld) 207 10*3/uL Normal 150-450 [facility] Work Phone: RBC Auto #/vol (Bld) 3.91 {M/mm3} Abnormal 4.2-5.4 [facility] Work Phone: WBC Auto #/vol (Bld) 6.1 10*3/uL Normal 4.4-11.0 [facility] Work Phone: CBC 45.5 fL Abnormal 35.1-43.9 [facility] Work Phone: PREGSOrdered By: System ODIMEGWU [employer] on 10-14-2014 HCG Qn m[IU]/mL Normal [facility] Work Phone: PREGS Negative Normal [facility] Work Phone: TSPATOrdered By: Shandong In [employer] on 10-14-2014 TSPAT Positive Normal [facility] Work Phone: JAYLYN DIR SEMI-QLOrdered By: S Sumo [employer] Head Host/Hostess on 02-09-2011 JAYLYN DIR SEMI-QL 27 AU/mL Normal [facility] Internal Medicine Work Phone: C-REACTIVE PROTOrdered By: S Sumo [employer] Head Host/Hostess on 02-09-2011 CRP mass conc mg/L Normal 0.0-3.0 [facility] Internal Medicine Work Phone: Comment on above: C-Reactive Protein ( CRP) provides useful information for thediagnosis, therapy and monitoring of inflammatory processesand associated diseases. For the evaluation of Relative Riskfor Cardiovascular Disease, a High Sensitivity CRP (HSCRP)should be ordered. CBCD,SMEAR DIFFOrdered By: S Sumo [employer] Head Host/Hostess on 02-09-2011 Eosinophils/100 WBC Auto (Bld) 2 % Normal 0-5 [facility] Work Phone: Erythrocyte distribution width Auto Ratio (RBC) 13.8 % Normal 11.6-14.6 [facility] Work Phone: Hematocrit Auto Volume Fraction (Bld) 39.2 % Normal 37-47 [facility] Work Phone: Hemoglobin mass conc (Bld) 13.4 g/dL Normal 12.0-16.0 [facility] Work Phone: Lymphocytes/100 WBC Auto (Bld) 34 % Normal 19-41 [facility] Work Phone: MCH Auto Entitic mass (RBC) 31.6 pg Normal 27.0-32.0 [facility] Work Phone: MCHC Auto mass conc (RBC) 34.2 g/dL Normal 32-36 [facility] Work Phone: MCV Auto Entitic volume (RBC) 92.3 fL Normal 81-99 [facility] Work Phone: Monocytes/100 WBC Auto (Bld) 5 % Normal 0-10 [facility] Work Phone: Neutrophils Auto #/vol (Bld) 3.6 3/uL Normal 2.0-7.7 [facility] Work Phone: Platelets Auto #/vol (Bld) 263 10*3/uL Normal 150-450 [facility] Work Phone: RBC Auto #/vol (Bld) 4.25 {M/mm3} Normal 4.2-5.4 [facility] Internal [facility] Work Phone: WBC Auto #/vol (Bld) 5.6 10*3/uL Normal 4.4-11.0 [facility] Internal [facility] Work Phone: CBCD,SMEAR DIFF SeeNote Normal [facility] Internal Medicine Work Phone: Comment on above: Result: NORM C+C Result: ADEQUATE CBCD,SMEAR DIFF 100 1 [facility] Work Phone: CBCD,SMEAR DIFF 59 % Normal 47-70 [facility] Work Phone: COMP METABOLICOrdered By: Sy stem Head Host/Hostess on 02-09-2011 Albumin mass conc 4.1 g/dL Normal 3.4-5.0 Compre[facility] Internal [facility] Work Phone: Albumin/Globulin mass ratio 1.1 {RATIO} Normal 0.9-2.4 [facility] Work Phone: ALP enzyme act/vol 124 U/L Normal 50-136 Compre [facility] Internal Medicine Work Phone: ALT enzyme act/vol 28 U/L Normal 12-78 [facility] Work Phone: Anion gap 3 molar conc 7 mmol/L Normal 5-15 [facility] Work Phone: AST enzyme act/vol 16 U/L Normal 15-37 [facility] Work Phone: Bilirubin mass conc 0.40 mg/dL Normal 0.00-1.00 [facility]pr [facility] Work Phone: Calcium mass conc 9.0 mg/dL Normal 8.5-10.1 [facility] Work Phone: Chloride molar conc 101 mmol/L Normal 98-107 [facility]pr [facility] Work Phone: CO2 molar conc 29.0 mmol/L Normal 21.0-32.0 [facility] Work Phone: Creatinine mass conc 0.7 mg/dL Normal 0.6-1.0 [facility] Work Phone: GFR/1.73 sq M predicted among blacks MDRD vol rate/area (S/P/Bld) 125 mL/min/{1.73_m2} Normal [facility] Work Phone: GFR/1.73 sq M.predicted MDRD vol rate/area 103 mL/min/{1.73_m2} Normal [facility]pre[facility] Work Phone: Globulin Calculated mass conc (S) 3.8 g/dL Normal 2.7-4.2 [facility] Work Phone: Glucose mass conc 84 mg/dL Normal 70-110 [facility] Work Phone: Potassium molar conc 4.0 mmol/L Normal 3.5-5.1 [facility] Work Phone: Protein mass conc 7.9 g/dL Normal 6.4-8.2 [facility] Work Phone: Sodium molar conc 137 mmol/L Normal 136-145 [facility] Work Phone: Urea nitrogen mass conc 17 mg/dL Normal 7-18 [facility] Work Phone: Urea nitrogen/Creatinine mass ratio 24.3 {RATIO} Abnormal 10-20 [facility] Work Phone: ESROrdered By: Code Kingdoms on 02-09-2011 ESR Velocity (Bld) 11 mm/h Normal 0-20 [facility]pre [facility] Work Phone: LIPIDOrdered By: System [employer] on 02-09-2011 Cholesterol in HDL mass conc 70 mg/dL Normal [facility] Work Phone: Comment on above: Reference Range HDL <40 mg/dL Low HDL Cholesterol HDL >or= 60 mg/dL High HDL Cholesterol Cholesterol in LDL mass conc 100 mg/dL Normal 0-130 [facility] Work Phone: Cholesterol in VLDL mass conc 16 mg/dL Normal 5-40 [facility] Work Phone: Cholesterol mass conc 186 mg/dL Normal Com [facility] Work Phone: Comment on above: <200 mg/dL Desirable 200-240 mg/dL Borderline >240 mg/dL High Risk Triglyceride mass conc 81 mg/dL Normal [facility] Work Phone: Comment on above: Serum Triglycerides Reference Interval Normal <150 mg/dL Borderline high 150 - 199 mg/dL High 200 - 499 mg/dL Very High > or = 500 mg/dL TSHOrdered By: Code Kingdoms on 02-09-2011 Thyrotropin Qn 1.56 {uIU/mL} Normal 0.358-3.74 [facility] Work Phone: Urine Test, Office ([id number])Ordered By: Luba Valerio on 03-03-2009 HCG.beta subunit ( test) Ql (U) Negative Normal Compre[facility] Work Phone: Comment on above: aw Urine Test, Office ([id number])on 03-03-2009 Urine Test, Office ([id number]) Negative Normal [facility]; [facility] Work Phone: Comment on above: aw LIPIDOrdered By: System [employer] on 10-25-2008 Cholesterol in HDL mass conc 62 mg/dL Normal [facility] Work Phone: Comment on above: Reference Range HDL <40 mg/dL Low HDL Cholesterol HDL >or= 60 mg/dL High HDL Cholesterol Cholesterol in LDL mass conc 140 mg/dL Abnormal 0-130 [facility] Work Phone: Cholesterol in VLDL mass conc 36 mg/dL Normal 5-40 [facility] Work Phone: Cholesterol mass conc 238 mg/dL Abnormal Com prehens[facility] Work Phone: Comment on above: <200 mg/dL Desirable 200-240 mg/dL Borderline >240 mg/dL High Risk Triglyceride mass conc 178 mg/dL Normal [facility] Work Phone: Comment on above: Serum Triglycerides Reference Interval Normal <150 mg/dL Borderline high 150 - 199 mg/dL High 200 - 499 mg/dL Very High > or = 500 mg/dL Vital Signs Date Time Vital Sign Value Performing Clinician Facility 03-01-2025 14:18-0400 Body height 167.64 cm Sue Baldwin MD Work Phone: [facility] 03-01-2025 14:18-0400 Body mass index (BMI) [Ratio] 24.3 kg/m2 Sue Baldwin MD Work Phone: [facility] 03-01-2025 14:18-0400 Body weight 68.26 kg Sue Baldwin MD Work Phone: [facility] 03-01-2025 14:18-0400 Diastolic blood pressure 71 mm[Hg] Sue Baldwin MD Work Phone: [facility] 03-01-2025 14:18-0400 Systolic blood pressure 112 mm[Hg] Sue Baldwin MD Work Phone: [facility] 02-04-2025 09:54-0400 Body temperature 98.3 [degF] Sue Baldwin MD Work Phone: [facility] 02-04-2025 09:54-0400 Diastolic blood pressure 60 mm[Hg] Sue Baldwin MD Work Phone: [facility] 02-04-2025 09:54-0400 Heart rate 69 /min Sue Baldwin MD Work Phone: [facility] 02-04-2025 09:54-0400 SaO2% (BldA) [Mass fraction] 98 % Sue Baldwin MD Work Phone: [facility] 02-04-2025 09:54-0400 Systolic blood pressure 100 mm[Hg] Sue Baldwin MD Work Phone: [facility] 01-25-2024 09:38-0500 Body height 167.[address] Sole Banegas Work Phone: [facility] 01-25-2024 09:33-0500 Body mass index (BMI) [Ratio] 24.7 kg/m2 Dr. Sole Banegas Work Phone: [facility] 01-25-2024 09:33-0500 Body weight 69.[address] Sole Banegas Work Phone: [facility] 01-25-2024 09:33-0500 Diastolic blood pressure 70 mm[Hg] Dr. Sole Banegas Work Phone: [facility] 01-25-2024 09:33-0500 Systolic blood pressure 106 mm[Hg] Dr. Sole Banegas Work Phone: [facility] 01-19-2023 11:02-0500 Body height 167.[address] Sole Banegas Work Phone: [facility] 03-29-2022 15:21-0400 Body temperature 98.4 [degF] Dr. Sole Banegas Work Phone: [facility] Work Phone: 03-29-2022 15:21-0400 Diastolic blood pressure 74 mm[Hg] Dr. Sole Banegas Work Phone: [facility] Work Phone: 03-29-2022 15:21-0400 Heart rate 84 /min Dr. Sole Banegas Work Phone: [facility] Work Phone: 03-29-2022 15:21-0400 Respiratory rate 16 /min Dr. Sole Banegas Work Phone: [facility] Work Phone: 03-29-2022 15:21-0400 SaO2% (BldA) [Mass fraction] 99 % Dr. Sole Banegas Work Phone: [facility] Work Phone: 03-29-2022 15:21-0400 Systolic blood pressure 116 mm[Hg] Dr. Sole Banegas Work Phone: [facility] Work Phone: 10-08-2020 13:22-0500 BMI (Body Mass Index) 24.71 kg/m2 [facility] Work Phone: 10-08-2020 13:22-0500 Body weight 69.46 kg [facility] Work Phone: 10-08-2020 13:22-0500 BSA (Body Surface Area) 1.79 m2 [facility] Work Phone: 10-08-2020 13:22-0500 Height 167.64 cm [facility] Work Phone: 10-06-2020 10:44-0500 BMI (Body Mass Index) 24.71 kg/m2 Sole Banegas DO Work Phone: [facility] Work Phone: 10-06-2020 10:44-0500 Body Temperature 97.1 [degF] Sole Banegas DO Work Phone: [facility] Work Phone: Comment on above: Method: Infrared 10-06-2020 10:44-0500 Body weight 69.46 kg Sole Banegas DO Work Phone: [facility] Work Phone: 10-06-2020 10:44-0500 BP Diastolic 84 mm[Hg] Sole Makenzie DO Work Phone: [facility] Work Phone: Comment on above: Patient Position: Sitting; Cuff Location : Left Arm; Cuff Size: Standard 10-06-2020 10:44-0500 BP Systolic 141 mm[Hg] Sole Hoganon DO Work Phone: [facility] Work Phone: Comment on above: Patient Position: Sitting; Cuff Location : Left Arm; Cuff Size: Standard 10-06-2020 10:44-0500 BSA (Body Surface Area) 1.79 m2 Sole Makenzie DO Work Phone: [facility] Work Phone: 10-06-2020 10:44-0500 Height 167.64 cm Sole Makenzie DO Work Phone: [facility] Work Phone: 10-06-2020 10:44-0500 Pulse (Heart Rate) 87 /min Sole Hoganon DO Work Phone: [facility] Work Phone: Comment on above: Pattern: Regular 10-06-2020 10:44-0500 Pulse Oximetry 98 % Sole Banegas [facility] Work Phone: Comment on above: Room air 10-06-2020 10:44-0500 Respiratory Rate 18 /min Sole Banegas DO Work Phone: [facility] Work Phone: Comment on above: Pattern: Unlabored 10-06-2020 10:44-0500 SaO2% (BldA) [Mass fraction] 98 % Sole Hoganon DO Work Phone: [facility]; [facility] Work Phone: Comment on above: Room air 08-30-2019 09:05-0400 BMI (Body Mass Index) 22.46 kg/m2 Laura Manchak [facility] Work Phone: 08-30-2019 09:05-0400 Body Temperature 98.5 [degF] Laura Flores [facility] Work Phone: Comment on above: Method: Temporal 08-30-2019 09:05-0400 Body weight 63.11 kg Laura Flores [facility] Work Phone: 08-30-2019 09:05-0400 BP Diastolic 60 mm[Hg] Laura Flores [facility] Work Phone: Comment on above: Patient Position: Sitting; Cuff Location : Left Arm; Cuff Size: Standard 08-30-2019 09:05-0400 BP Systolic 100 mm[Hg] Laura Flores [facility] Work Phone: Comment on above: Patient Position: Sitting; Cuff Location : Left Arm; Cuff Size: Standard 08-30-2019 09:05-0400 BSA (Body Surface Area) 1.71 m2 Laura Flores [facility] Work Phone: 08-30-2019 09:05-0400 Height 167.64 cm Laura Flores [facility] Work Phone: 08-30-2019 09:05-0400 Pulse (Heart Rate) 80 /min Laura Flores [facility] Work Phone: Comment on above: Pattern: Regular 08-30-2019 09:05-0400 Pulse Oximetry 98 % Sole Banegas [facility] Work Phone: Comment on above: Room air 08-30-2019 09:05-0400 Respiratory Rate 16 /min Laura Flores [facility] Work Phone: Comment on above: Pattern: Unlabored 08-30-2019 09:05-0400 SaO2% (BldA) [Mass fraction] 98 % Laura Flores [facility]; [facility] Work Phone: Comment on above: Room air 10-31-2018 10:20-0500 BMI (Body Mass Index) 22.46 kg/m2 Leann Denson [facility] Work Phone: 10-31-2018 10:20-0500 Body Temperature 98.6 [degF] Leann Denson [facility] Work Phone: Comment on above: Method: Temporal 10-31-2018 10:20-0500 Body weight 63.11 kg Leann Denson [facility] Work Phone: 10-31-2018 10:20-0500 BP Diastolic 62 mm[Hg] Leann Denson [facility] Work Phone: Comment on above: Patient Position: Sitting; Cuff Location : Left Arm; Cuff Size: Standard 10-31-2018 10:20-0500 BP Systolic 110 mm[Hg] Leann Denson [facility] Work Phone: Comment on above: Patient Position: Sitting; Cuff Location : Left Arm; Cuff Size: Standard 10-31-2018 10:20-0500 BSA (Body Surface Area) 1.71 m2 Leann Denson [facility] Work Phone: 10-31-2018 10:20-0500 Height 167.64 cm Leann Denson [facility] Work Phone: 10-31-2018 10:20-0500 Pulse (Heart Rate) 70 /min Leann Denson [facility] Work Phone: Comment on above: Pattern: Regular 10-31-2018 10:20-0500 Pulse Oximetry 99 % Sole Makenzie [facility] Work Phone: Comment on above: Room air 10-31-2018 10:20-0500 Respiratory Rate 17 /min Leann Denson [facility] Work Phone: Comment on above: Pattern: Unlabored 10-31-2018 10:20-0500 SaO2% (BldA) [Mass fraction] 99 % Leann Denson [facility]; [facility] Work Phone: Comment on above: Room air 10-31-2018 10:20-0500 Weight 63.11 kg Sole Banegas [facility] Work Phone: 06-19-2018 08:13-0400 BMI (Body Mass Index) 22.31 kg/m2 Paola Diamond RN [facility] Work Phone: 06-19-2018 08:13-0400 Body weight 62.71 kg Paola Diamond RN [facility] Work Phone: 06-19-2018 08:13-0400 BP Diastolic 62 mm[Hg] Paola Diamond RN [facility] Work Phone: Comment on above: Patient Position: Sitting; Cuff Location : Left Arm; Cuff Size: Standard 06-19-2018 08:13-0400 BP Systolic 102 mm[Hg] Paola Diamond RN [facility] Work Phone: Comment on above: Patient Position: Sitting; Cuff Location : Left Arm; Cuff Size: Standard 06-19-2018 08:13-0400 BSA (Body Surface Area) 1.71 m2 Paola Diamond RN [facility] Work Phone: 06-19-2018 08:13-0400 Height 167.64 cm Paola Diamond RN [facility] Work Phone: 06-19-2018 08:13-0400 Pulse (Heart Rate) 66 /min Paola Diamond RN [facility] Work Phone: Comment on above: Pattern: Regular 06-19-2018 08:13-0400 Pulse Oximetry 97 % Sole Makenzie [facility] Work Phone: Comment on above: Room air 06-19-2018 08:13-0400 Respiratory Rate 18 /min Paola Diamond RN [facility] Work Phone: Comment on above: Pattern: Unlabored 06-19-2018 08:13-0400 SaO2% (BldA) [Mass fraction] 97 % Paola Diamond RN [facility]; [facility] Work Phone: Comment on above: Room air 06-19-2018 08:13-0400 Weight 62.71 kg Sole Hoganon [facility] Work Phone: 05-09-2017 14:52-0400 BMI (Body Mass Index) 21.48 kg/m2 Amy Slarb RF TECHNICIAN Com[facility] Work Phone: 05-09-2017 14:52-0400 Body Temperature 97.4 [degF] Amy Bradrb RF TECHNICIAN [facility] Work Phone: 05-09-2017 14:52-0400 Body weight 60.36 kg Amy Salinasrb RF TECHNICIAN [facility] Work Phone: 05-09-2017 14:52-0400 BP Diastolic 68 mm[Hg] Amy Slarb RF TECHNICIAN [facility] Work Phone: Comment on above: Patient Position: Sitting; Cuff Location : Left Arm; Cuff Size: Standard 05-09-2017 14:52-0400 BP Systolic 114 mm[Hg] Amy Slarb RF TECHNICIAN [facility] Work Phone: Comment on above: Patient Position: Sitting; Cuff Location : Left Arm; Cuff Size: Standard 05-09-2017 14:52-0400 BSA (Body Surface Area) 1.68 m2 Amy Bradrb RF TECHNICIAN [facility] Work Phone: 05-09-2017 14:52-0400 Height 167.64 cm Amy Bradrb RF TECHNICIAN [facility] Work Phone: 05-09-2017 14:52-0400 Pulse (Heart Rate) 92 /min Amy Salinasrb RF TECHNICIAN Comprehensiv e [facility] Medicine Work Phone: Comment on above: Pattern: Regular 05-09-2017 14:52-0400 Pulse Oximetry 95 % Solemarilin Banegas [facility] Work Phone: Comment on above: Room air 05-09-2017 14:52-0400 Respiratory Rate 16 /min Amy Bradrb RF TECHNICIAN [facility] Work Phone: Comment on above: Pattern: Unlabored 05-09-2017 14:52-0400 SaO2% (BldA) [Mass fraction] 95 % Amy Slarb RF TECHNICIAN [facility]; [facility] Work Phone: Comment on above: Room air 05-09-2017 14:52-0400 Weight 60.36 kg Sole Banegas [facility] Work Phone: 05-02-2017 15:44-0400 BMI (Body Mass Index) 21.47 kg/m2 Paola Diamond RN [facility] Work Phone: 05-02-2017 15:44-0400 Body weight 60.33 kg Paola Diamond RN [facility] Work Phone: 05-02-2017 15:44-0400 BP Diastolic 60 mm[Hg] Paola Diamond RN [facility] Work Phone: Comment on above: Patient Position: Sitting; Cuff Location : Left Arm; Cuff Size: Standard 05-02-2017 15:44-0400 BP Systolic 96 mm[Hg] Paola Diamond RN [facility] Work Phone: Comment on above: Patient Position: Sitting; Cuff Location : Left Arm; Cuff Size: Standard 05-02-2017 15:44-0400 BSA (Body Surface Area) 1.68 m2 Paola Diamond RN [facility] Work Phone: 05-02-2017 15:44-0400 Height 167.64 cm Paola Diamond RN [facility] Work Phone: 05-02-2017 15:44-0400 Pulse (Heart Rate) 71 /min Paola Diamond RN [facility] Work Phone: Comment on above: Pattern: Regular 05-02-2017 15:44-0400 Pulse Oximetry 98 % Sole Hoganon [facility] Work Phone: Comment on above: Room air 05-02-2017 15:44-0400 Respiratory Rate 18 /min Paola Diamond RN [facility] Work Phone: Comment on above: Pattern: Unlabored 05-02-2017 15:44-0400 SaO2% (BldA) [Mass fraction] 98 % Paola Diamond RN [facility]; [facility] Work Phone: Comment on above: Room air 05-02-2017 15:44-0400 Weight 60.33 kg Sole Hoganon [facility] Work Phone: 12-13-2016 15:08-0500 BMI (Body Mass Index) 20.58 kg/m2 Paola Diamond RN [facility] Work Phone: 12-13-2016 15:08-0500 Body weight 57.83 kg Paola Diamond RN [facility] Work Phone: 12-13-2016 15:08-0500 BP Diastolic 70 mm[Hg] Paola Diamond RN [facility] Work Phone: Comment on above: Patient Position: Sitting; Cuff Location : Left Arm; Cuff Size: Standard 12-13-2016 15:08-0500 BP Systolic 98 mm[Hg] Paola Diamond RN [facility] Work Phone: Comment on above: Patient Position: Sitting; Cuff Location : Left Arm; Cuff Size: Standard 12-13-2016 15:08-0500 BSA (Body Surface Area) 1.65 m2 Paola Diamond RN [facility] Work Phone: 12-13-2016 15:08-0500 Height 167.64 cm Paola Diamond RN [facility] Work Phone: 12-13-2016 15:08-0500 Pulse (Heart Rate) 64 /min Paola Diamond RN [facility] Work Phone: Comment on above: Pattern: Regular 12-13-2016 15:08-0500 Pulse Oximetry 98 % Sole Banegas [facility] Work Phone: Comment on above: Room air 12-13-2016 15:08-0500 Respiratory Rate 18 /min Paola Diamond RN [facility] Work Phone: Comment on above: Pattern: Unlabored 12-13-2016 15:08-0500 SaO2% (BldA) [Mass fraction] 98 % Paola Diamond RN [facility]; [facility] Work Phone: Comment on above: Room air 12-13-2016 15:08-0500 Weight 57.83 kg Sole Banegas [facility] Work Phone: 05-06-2016 13:35-0400 BMI (Body Mass Index) 20.68 kg/m2 Yue Murphy RN [facility] Work Phone: 05-06-2016 13:35-0400 Body Temperature 98.2 [degF] Yue Murphy RN [facility] Work Phone: Comment on above: Method: Temporal 05-06-2016 13:35-0400 Body weight 58.12 kg Yue Murphy RN [facility] Work Phone: 05-06-2016 13:35-0400 BP Diastolic 74 mm[Hg] Yue Murphy RN [facility] Work Phone: Comment on above: Patient Position: Sitting; Cuff Location : Left Arm; Cuff Size: Standard 05-06-2016 13:35-0400 BP Systolic 112 mm[Hg] Yue Murphy RN [facility] Work Phone: Comment on above: Patient Position: Sitting; Cuff Location : Left Arm; Cuff Size: Standard 05-06-2016 13:35-0400 BSA (Body Surface Area) 1.66 m2 Yue Murphy RN [facility] Work Phone: 05-06-2016 13:35-0400 Height 167.64 cm Yue Murphy RN [facility] Work Phone: 05-06-2016 13:35-0400 Pulse (Heart Rate) 72 /min uYe Murphy RN [facility] Work Phone: Comment on above: Pattern: Regular 05-06-2016 13:35-0400 Pulse Oximetry 98 % Solemarilin Hoganon [facility] Work Phone: Comment on above: Room air 05-06-2016 13:35-0400 Respiratory Rate 16 /min Yue Murphy RN [facility] Work Phone: Comment on above: Pattern: Unlabored 05-06-2016 13:35-0400 SaO2% (BldA) [Mass fraction] 98 % Yue Murphy RN [facility]; [facility] Work Phone: Comment on above: Room air 05-06-2016 13:35-0400 Weight 58.12 kg Sole Hoganon [facility] Work Phone: 02-28-2015 08:27-0400 BMI (Body Mass Index) 20.68 kg/m2 Amy aguilar Internal [facility] Work Phone: 02-28-2015 08:27-0400 Body Temperature 98 [degF] Amy Slarb RF TECHNICIAN [facility] Work Phone: 02-28-2015 08:27-0400 Body weight 58.12 kg Amy Salinasrb RF TECHNICIAN [facility] Work Phone: 02-28-2015 08:27-0400 BP Diastolic 74 mm[Hg] Amy Slarb RF TECHNICIAN [facility] Work Phone: Comment on above: Patient Position: Sitting; Cuff Location : Left Arm; Cuff Size: Standard 02-28-2015 08:27-0400 BP Systolic 98 mm[Hg] Amy Slarb RF TECHNICIAN [facility] Work Phone: Comment on above: Patient Position: Sitting; Cuff Location : Left Arm; Cuff Size: Standard 02-28-2015 08:27-0400 BSA (Body Surface Area) 1.66 m2 Amy Slarb RF TECHNICIAN [facility] Work Phone: 02-28-2015 08:27-0400 Height 167.64 cm Amy Slarb RF TECHNICIAN [facility] Work Phone: 02-28-2015 08:27-0400 Pulse (Heart Rate) 95 /min Amy Bradrb RF TECHNICIAN Comprehens e [facility] Medicine Work Phone: Comment on above: Pattern: Regular 02-28-2015 08:27-0400 Pulse Oximetry 97 % Sole Banegas [facility] Work Phone: Comment on above: Room air 02-28-2015 08:27-0400 Respiratory Rate 16 /min Amy Bradrb RF TECHNICIAN [facility] Work Phone: Comment on above: Pattern: Unlabored 02-28-2015 08:27-0400 SaO2% (BldA) [Mass fraction] 97 % Amy Slarb RF TECHNICIAN [facility]; [facility] Work Phone: Comment on above: Room air 02-28-2015 08:27-0400 Weight 58.12 kg Sole Banegas [facility] Work Phone: 04-09-2014 11:17-0400 BMI (Body Mass Index) 21.18 kg/m2 Paola Diamond RN [facility] Work Phone: 04-09-2014 11:17-0400 Body Temperature 98.5 [degF] Paola Diamond RN [facility] Work Phone: Comment on above: Method: Oral 04-09-2014 11:17-0400 Body weight 59.54 kg Paola Diamond RN [facility] Work Phone: 04-09-2014 11:17-0400 BP Diastolic 60 mm[Hg] Paola Diamond RN [facility] Work Phone: Comment on above: Patient Position: Sitting; Cuff Location : Left Arm; Cuff Size: Standard 04-09-2014 11:17-0400 BP Systolic 118 mm[Hg] Paola Diamond RN [facility] Work Phone: Comment on above: Patient Position: Sitting; Cuff Location : Left Arm; Cuff Size: Standard 04-09-2014 11:17-0400 BSA (Body Surface Area) 1.67 m2 Paola Diamond RN [facility] Work Phone: 04-09-2014 11:17-0400 Height 167.64 cm Paola Diamond RN [facility] Work Phone: 04-09-2014 11:17-0400 Pulse (Heart Rate) 70 /min Paola Diamond RN [facility] Work Phone: Comment on above: Pattern: Regular 04-09-2014 11:17-0400 Pulse Oximetry 98 % Sole Banegas [facility] Work Phone: Comment on above: Room air 04-09-2014 11:17-0400 Respiratory Rate 18 /min Paola Diamond RN [facility] Work Phone: Comment on above: Pattern: Unlabored 04-09-2014 11:17-0400 SaO2% (BldA) [Mass fraction] 98 % Paola Diamond RN [facility]; [facility] Work Phone: Comment on above: Room air 04-09-2014 11:17-0400 Weight 59.54 kg Sole Banegas [facility] Work Phone: 12-03-2011 14:09-0500 BMI (Body Mass Index) 20.67 kg/m2 Sole Cevalloskaiser [facility] Work Phone: 12-03-2011 14:09-0500 Body Temperature 98.2 [degF] Sole Banegas [facility] Work Phone: Comment on above: Method: Oral 12-03-2011 14:09-0500 Body weight 58.09 kg Sole Banegas [facility] Work Phone: 12-03-2011 14:09-0500 BP Diastolic 68 mm[Hg] Sole Banegas [facility] Work Phone: Comment on above: Patient Position: Sitting; Cuff Location : Left Arm; Cuff Size: Standard 12-03-2011 14:09-0500 BP Systolic 106 mm[Hg] Sole Banegas [facility] Work Phone: Comment on above: Patient Position: Sitting; Cuff Location : Left Arm; Cuff Size: Standard 12-03-2011 14:09-0500 BSA (Body Surface Area) 1.66 m2 Sole Banegas [facility] Work Phone: 12-03-2011 14:09-0500 Height 167.64 cm Sole Banegas [facility] Work Phone: 12-03-2011 14:09-0500 Pulse (Heart Rate) 88 /min Sole Banegas [facility] Work Phone: Comment on above: Pattern: Regular 12-03-2011 14:09-0500 Pulse Oximetry 96 % Sole Banegas [facility] Work Phone: Comment on above: Room air 12-03-2011 14:09-0500 Respiratory Rate 18 /min Sole Banegas [facility] Work Phone: 12-03-2011 14:09-0500 SaO2% (BldA) [Mass fraction] 96 % Sole Banegas DO Work Phone: [facility]; [facility] Work Phone: Comment on above: Room air 12-03-2011 14:09-0500 Weight 58.09 kg Sole Banegas [facility] Work Phone: 02-19-2011 07:12-0400 BMI (Body Mass Index) 20.67 kg/m2 Paola Diamond RN [facility] Work Phone: 02-19-2011 07:12-0400 Body weight 58.09 kg Paola Diamond RN [facility] Work Phone: 02-19-2011 07:12-0400 BP Diastolic 60 mm[Hg] Paola Diamond RN [facility] Work Phone: Comment on above: Patient Position: Sitting; Cuff Location : Left Arm; Cuff Size: Large 02-19-2011 07:12-0400 BP Systolic 102 mm[Hg] Paola Diamond RN [facility] Work Phone: Comment on above: Patient Position: Sitting; Cuff Location : Left Arm; Cuff Size: Large 02-19-2011 07:12-0400 BSA (Body Surface Area) 1.66 m2 Paola Diamond RN [facility] Work Phone: 02-19-2011 07:12-0400 Height 167.64 cm Paola Diamond RN [facility] Work Phone: 02-19-2011 07:12-0400 Pulse (Heart Rate) 60 /min Paola Diamond RN [facility] Work Phone: Comment on above: Pattern: Regular 02-19-2011 07:12-0400 Respiratory Rate 20 /min Paola Diamond RN [facility] Work Phone: Comment on above: Pattern: Unlabored 02-19-2011 07:12-0400 Weight 58.09 kg Sole Banegas [facility] Work Phone: 02-05-2011 14:33-0400 BMI (Body Mass Index) 20.19 kg/m2 Paola Diamond RN [facility] Work Phone: 02-05-2011 14:33-0400 Body Temperature 97.9 [degF] Paola Diamond RN [facility] Work Phone: Comment on above: Method: Oral 02-05-2011 14:33-0400 Body weight 56.73 kg Paola Diamond RN [facility] Work Phone: 02-05-2011 14:33-0400 BP Diastolic 80 mm[Hg] Paola Diamond RN [facility] Work Phone: Comment on above: Patient Position: Sitting; Cuff Location : Left Arm; Cuff Size: Standard 02-05-2011 14:33-0400 BP Systolic 120 mm[Hg] Paola Diamond RN [facility] Work Phone: Comment on above: Patient Position: Sitting; Cuff Location : Left Arm; Cuff Size: Standard 02-05-2011 14:33-0400 BSA (Body Surface Area) 1.64 m2 Paola Diamond RN [facility] Work Phone: 02-05-2011 14:33-0400 Height 167.64 cm Paola Diamond RN [facility] Work Phone: 02-05-2011 14:33-0400 Pulse (Heart Rate) 60 /min Paola Diamond RN [facility] Work Phone: Comment on above: Pattern: Regular 02-05-2011 14:33-0400 Respiratory Rate 16 /min Paola Diamond RN [facility] Work Phone: Comment on above: Pattern: Unlabored 02-05-2011 14:33-0400 Weight 56.73 kg Sole Banegas [facility] Work Phone: 01-18-2011 09:10-0500 Body Temperature 97.3 [degF] Solemarilin Hoganon [facility] Work Phone: Comment on above: Method: Oral 01-18-2011 09:10-0500 Body weight 56.73 kg Sole Banegas [facility] Work Phone: 01-18-2011 09:10-0500 BP Diastolic 62 mm[Hg] Sole Makenzie [facility] Work Phone: Comment on above: Patient Position: Sitting; Cuff Location : Left Arm; Cuff Size: Standard 01-18-2011 09:10-0500 BP Systolic 98 mm[Hg] Sole Makenzie [facility] Work Phone: Comment on above: Patient Position: Sitting; Cuff Location : Left Arm; Cuff Size: Standard 01-18-2011 09:10-0500 Pulse (Heart Rate) 66 /min Sole Banegas [facility] Work Phone: Comment on above: Pattern: Regular 01-18-2011 09:10-0500 Pulse Oximetry 98 % Sole Banegas [facility] Work Phone: Comment on above: Room air 01-18-2011 09:10-0500 Respiratory Rate 16 /min Sole Banegas [facility] Work Phone: Comment on above: Pattern: Unlabored 01-18-2011 09:10-0500 SaO2% (BldA) [Mass fraction] 98 % Sole Banegas DO Work Phone: [facility]; [facility] Work Phone: Comment on above: Room air 01-18-2011 09:10-0500 Weight 56.73 kg Sole Banegas [facility] Work Phone: 03-03-2009 10:25-0400 Body Temperature 98.2 [degF] [facility] Work Phone: Comment on above: Method: Oral 03-03-2009 10:25-0400 Body weight 68.66 kg Fatuma [facility] Work Phone: 03-03-2009 10:25-0400 BP Diastolic 68 mm[Hg] [facility] Work Phone: Comment on above: Patient Position: Sitting; Cuff Location : Left Arm; Cuff Size: Standard 03-03-2009 10:25-0400 BP Systolic 108 mm[Hg] [facility] Work Phone: Comment on above: Patient Position: Sitting; Cuff Location : Left Arm; Cuff Size: Standard 03-03-2009 10:25-0400 Head Circumference 0 cm Sole Banegas [facility] Work Phone: 03-03-2009 10:25-0400 Head Occipital-frontal circumference 0 cm [facility]; [facility] Work Phone: 03-03-2009 10:25-0400 Height 0 cm Fatuma Jones [facility] Work Phone: 03-03-2009 10:25-0400 Pulse (Heart Rate) 55 /min Fatuma Jones [facility] Work Phone: Comment on above: Pattern: Regular 03-03-2009 10:25-0400 Pulse Oximetry 99 % Sole Banegas [facility] Work Phone: Comment on above: Room air 03-03-2009 10:25-0400 Respiratory Rate 16 /min Fatuma Jones [facility] Work Phone: Comment on above: Pattern: Unlabored 03-03-2009 10:25-0400 SaO2% (BldA) [Mass fraction] 99 % Fatuma Jones [facility]; [facility] Work Phone: Comment on above: Room air 03-03-2009 10:25-0400 Weight 68.66 kg Sole Banegas [facility] Work Phone: 09-10-2008 14:08-0400 BMI (Body Mass Index) 25.36 kg/m2 Paola Diamond RN [facility] Work Phone: 09-10-2008 14:08-0400 Body weight 71.27 kg Paola Diamond RN [facility] Work Phone: 09-10-2008 14:08-0400 BP Diastolic 62 mm[Hg] Paola Diamond RN [facility] Work Phone: Comment on above: Patient Position: Sitting; Cuff Location : Left Arm; Cuff Size: Standard 09-10-2008 14:08-0400 BP Systolic 110 mm[Hg] Paola Diamond RN [facility] Work Phone: Comment on above: Patient Position: Sitting; Cuff Location : Left Arm; Cuff Size: Standard 09-10-2008 14:08-0400 BSA (Body Surface Area) 1.81 m2 Paola Diamond RN [facility] Work Phone: 09-10-2008 14:08-0400 Head Circumference 0 cm Sole Makenzie [facility] Work Phone: 09-10-2008 14:08-0400 Head Occipital-frontal circumference 0 cm Paola Diamond RN [facility]; [facility] Work Phone: 09-10-2008 14:08-0400 Height 167.64 cm Paola Diamond RN [facility] Work Phone: 09-10-2008 14:08-0400 Pulse (Heart Rate) 64 /min Paola Diamond RN [facility] Work Phone: Comment on above: Pattern: Regular 09-10-2008 14:08-0400 Respiratory Rate 16 /min Paola Diamond RN [facility] Work Phone: Comment on above: Pattern: Unlabored 09-10-2008 14:08-0400 Weight 71.27 kg Sole Banegas [facility] Work Phone: Encounters Encounter Date Encounter Type Care Provider Facility Start: 09-24-2025 End: 09-24-2025 ambulatory Chalon Nicolasa Facility:[facility] Start: 04-01-2025 End: 04-01-2025 ambulatory Chalon Nicolasa Facility:[facility] Start: 03-11-2025 End: 03-11-2025 ambulatory Sue Baldwin MD Work Phone: [facility] Work Phone: Start: 03-11-2025 End: 03-11-2025 Patient encounter procedure Tonya Goldstein CNM -[facility] Work Phone: Start: 03-11-2025 End: 03-11-2025 ambulatory Sue Nicolasa Facility:[facility] Start: 03-01-2025 Encounter for gynecological examination (general) (routine) without abnormal findings Tonya Goldstein [facility] Start: 03-01-2025 End: 03-01-2025 Patient encounter procedure Tonya Goldstein CNM -[facility] Work Phone: Start: 03-01-2025 End: 03-01-2025 Patient encounter status Tonya Goldstein CNM [facility] Start: 03-01-2025 End: 03-01-2025 ambulatory Chalshanika Baldwin Facility:[facility] Start: 02-04-2025 End: 02-04-2025 Patient encounter procedure [place] Barraza [place] -[facility] Work Phone: Start: 02-04-2025 End: 02-04-2025 ambulatory Sue Baldwin Facility:[facility] Start: 09-28-2024 End: 09-28-2024 ambulatory Chalshanika Nicolasa Facility:[facility] Start: 03-16-2024 End: 03-16-[address] Sole Banegas Work Phone: [facility] Work Phone: Start: 03-16-2024 End: 03-16-[address] Sole Banegas Work Phone: [facility] [place] Work Phone: Start: 02-06-2024 End: 02-06-[address] Sole Banegas Work Phone: [facility] Work Phone: Start: 02-06-2024 End: 02-06-[address] Sole Banegas Work Phone: [facility] Work Phone: Start: 01-25-2024 End: 01-25-[address] Sole Banegas Work Phone: [facility] Work Phone: Start: 01-25-2024 End: 01-25-[address] Sole Banegas Work Phone: [facility] [place] Work Phone: Start: 01-25-2024 End: 01-25-[address] Sole Banegas Work Phone: [facility] Work Phone: Start: 02-02-2023 End: 02-02-[address] Sole Banegas Work Phone: [facility] Work Phone: Start: 02-02-2023 End: 02-02-[address] Sole Banegas Work Phone: [facility] Start: 01-19-2023 End: 01-19-[address] Sole Banegas Work Phone: [facility] Work Phone: Start: 01-19-2023 End: 01-19-[address] Sole Banegas Work Phone: [facility] Start: 01-19-2023 End: 01-19-[address] Sole Banegas Work Phone: [facility] Start: 04-22-2022 End: 04-22-[address] Sole Banegas Work Phone: [facility]Ul[facility]ound, [facility] Start: 03-29-2022 End: 03-29-[address] Sole Banegas Work Phone: [facility] Start: 03-29-2022 End: 03-29-[address] Sole Banegas Work Phone: [facility] Start: 01-25-2022 End: 01-25-[address] Sole Banegas Work Phone: [facility] Start: 10-09-2020 End: 10-09-2020 Phone Encounter Sole Goss [employer] [facility] Medicine Start: 10-08-2020 End: 10-08-2020 Office outpatient visit 15 minutes Sole Banegas [facility] Start: 10-06-2020 End: 10-06-2020 Office outpatient visit 15 minutes Sole Banegas [facility] Start: 10-06-2020 Review Sole Banegas [facility] Start: 08-30-2019 End: 08-30-2019 Office outpatient visit 25 minutes Sole Goss [facility] Start: 10-31-2018 End: 10-31-2018 Office outpatient visit 25 minutes Sole Goss [facility] Start: 08-23-2018 End: 08-23-2018 Phone Encounter Sole Goss [employer] [employer] [facility] Start: 07-04-2018 End: 07-05-2018 Patient encounter procedure Sole Goss [facility] Start: 06-19-2018 End: 06-19-2018 Office outpatient visit 15 minutes Sole Goss [facility] Start: 05-09-2017 End: 05-09-2017 Office outpatient visit 15 minutes Sole Goss [facility] Start: 05-02-2017 End: 05-02-2017 Office outpatient visit 15 minutes Sole Goss [facility] Start: 12-13-2016 End: 12-13-2016 Office outpatient visit 15 minutes Sole Goss [facility] Start: 05-06-2016 End: 05-06-2016 Office outpatient visit 15 minutes Sole Goss [facility] Start: 07-25-2015 End: 07-25-2015 Office outpatient visit 15 minutes Sole Goss [facility] Start: 02-28-2015 End: 02-28-2015 Office outpatient visit 15 minutes Sole Goss [facility] Start: 04-11-2014 End: 04-11-2014 Phone Encounter Sole Goss [facility] [employer] Start: 04-09-2014 End: 04-09-2014 Patient encounter procedure Sole Goss [facility] Start: 12-03-2011 End: 12-03-2011 Office outpatient visit 15 minutes Sole Goss [facility] Start: 02-19-2011 End: 02-19-2011 Patient encounter procedure Sole Goss [facility] Start: 02-05-2011 End: 02-05-2011 Patient encounter procedure Sole Goss [facility] Start: 01-18-2011 End: 01-18-2011 Office outpatient visit 25 minutes Sole Goss [facility] Start: 03-03-2009 End: 03-03-2009 Office outpatient visit 15 minutes Sole Goss [facility] Start: 09-11-2008 End: 09-11-2008 Historical Summary Sole Goss [facility] [employer] [facility] Start: 09-10-2008 End: 09-10-2008 Patient encounter procedure Sole Banegas [facility] Procedures Date Procedure Procedure Detail Performing Clinician Start: 03-11-2025 Screening mammography Maxwell Baldwin MD Work Phone: Start: 02-06-2024 Screening mammography Natalie ma Sole Banegas Work Phone: Start: 02-02-2023 Screening mammography Natalie ma Sole Banegas Work Phone: Start: 04-22-2022 End: 04-22-2022 Kidney and Bladder Comments: See Note; NOTES: [facility] Imaging Services [address] [place] [address] Kidney and Bladder MR#: [id number] Acct: [id number] Name: YURI LOVE Rep #: [id number] : 1980 F 41 From: Roc Luna MD PCP: Dr. Sole Banegas, DO Status: REG CLI Study: Kidney and Bladder Date of Exam: 04/22/22 Exam# [id number] Ordering Dr: Sophia Cobian MD STUDY: RENAL ULTRASOUND - COMPLETE REASON FOR EXAM: Female, 41 years old. Flank pain TECHNIQUE: Ultrasound evaluation of the kidneys was performed with real-time and static goodwin-scale imaging. COMPARISON: None. FINDINGS: RIGHT KIDNEY: Normal location of the right kidney, which is normal in size. The right kidney measures 10.9 x 5 x 4.5 cm. There is a normal cortex of the right kidney. The renal cortex measures 1.2 cm. There is no right renal mass or cyst. There are no right renal calculi. There is no right hydronephrosis. DISTAL RIGHT URETER: There is non-visualization of the distal right ureter. There is no demonstrated right ureterovesical junction calculus. There is a visualized right ureteral jet. LEFT KIDNEY: Normal location of the left kidney, which is normal in size. The left kidney measures 10.7 x 4.9 x 5.7 cm. There is a normal cortex of the left kidney. The renal cortex measures 1.5 cm. There is no left renal mass or cyst. There are no left renal calculi. There is no left hydronephrosis. DISTAL LEFT URETER: There is non-visualization of the distal left ureter. There is no demonstrated left ureterovesical junction calculus. There is a visualized left ureteral jet. AORTA: There is no elongation or tortuosity of the abdominal aorta. I.V.C.: The IVC is patent. BLADDER: The distended urinary bladder has a volume of 214 ml. The empty urinary bladder has a volume of less than 10 ml. There is a normal wall thickness of the distended urinary bladder. There is no demonstrated mass within the urinary bladder. There are no demonstrated bladder calculi. US/Kidney and Bladder IMPRESSION: Normal ultrasound of the kidneys and urinary bladder. Electronically Signed: Mook Luna MD at 15:17 EDT , CC: Dr. Sophia Cobian MD; Dr. Sole Banegas DO Grinder Operator: Signed Sole Banegas DO Work Phone: Start: 04-22-[address] Karl Banegas Work Phone: Start: 03-29-2022 End: 03-29-2022 Urgent Care Visit Report Comments: See Note; NOTES: [facility] [address] [place] [address] OFFICE VISIT Date of Service: 03/29/22 MR#: [id number] Acct: [id number] Name: YURI LOVE Rep #: [id number] : 1980 Provider: KERLINE Xiao Age/Sex: 41/F Location: [facility] Status: Signed Intake Vital Signs 03/29/22 15:21 BP 116/74 Blood Pressure Location Lt brachial Position Sitting Respiration 16 Pulse 84 Pulse Source Monitor Temp 98.4 F Temp Source Temporal Pulse Oximetry (%) 99 Oxygen Delivery Method room air Intake Visit Reasons: Urinary tract infection Allergies No Known Allergies Allergy (Verified 06/29/21 12:09) [facility] Medical History (Updated 03/29/22 @ 15:27 by Justin CHURCHILL, PA) Abdominal pain Acid reflux Cholelithiasis Diarrhea Dysuria Hematuria Nausea Urinary frequency Surgical History history corrective eye surgery History of tubal ligation S/P laparoscopic cholecystectomy ( 08/15/18) Social History Smoking Status: Never smoker alcohol intake: never substance use type: does not use HPI HPI Details: YURI LOVE, is a 41 F who presents to the office today for complaint of dysuria and increasing urgency/frequency for the past 3 days. Patient states she has had UTIs in the past with similar type symptoms. She denies hematuria or loss of bladder control. No fever, chills, sweats. No nausea, vomiting, diarrhea. No abdominal or pelvic pain. No other associated symptoms or alleviating/aggravating factors. ROS Const Constitutional: No other (6 system ROS completed with pertinent findings in the HPI otherwise normal.) Exam Const General: cooperative and healthy appearing Resp Effort Inspection: normal respiratory effort Auscultation: Bilateral: Clear to Auscultation Cardio Rate: regular rate Rhythm: regular rhythm GI Auscultation: normal bowel sounds General: No CVA tenderness Psych Appearance: grossly normal Mental Status: mental status grossly normal Results POC Urinalysis Dip (Clinic) Office Urine Color YELLOW Last Edit by Caroline Milligan on 03/29/22 15:23 Office Urine Clarity Cloudy Last Edit by Caroline Milligan on 03/29/22 15:23 Office Urine Glucose Negative Last Edit by Caroline Milligan on 03/29/22 15:23 Office Urine Ketones Small (15+) Last Edit by Caroline Milligan on 03/29/22 15:23 Off Ur Spec [place] 1.030 Last Edit by Caroline Milligan on 03/29/22 15:23 Office Urine pH 5.0 Last Edit by Caroline Milligan on 03/29/22 15:23 Office Urine Bilirubin Negative Last Edit by Caroline Milligan on 03/29/22 15:23 Office Urine Urobilinogen Negative Last Edit by Caroline Milligan on 03/29/22 15:23 Office Urine Blood Hemolyzed Last Edit by Caroline Milligan on 03/29/22 15:23 Office Urine Blood Hemolyzed Moderate Last Edit by Caroline Milligan on 03/29/22 15:23 Office Urine Protein Negative Last Edit by Caroline Milligan on 03/29/22 15:23 Office Urine Nitrate Negative Last Edit by Caroline Milligan on 03/29/22 15:23 Off Ur Leukocytes Positive Last Edit by Caroline Milligan on 03/29/22 15:23 Coding Level of Care Code Off vis,est,level 3 Diagnoses Urinary tract infection N39.0 Assessment and Plan Assessment and Plan (1) Urinary tract infection: Status: Acute Plan - Justin CHURCHILL PA: Macrobid as prescribed today. Encouraged to get plenty of rest, drink lots of clear liquids, and use Tylenol or Ibuprofen (unless contraindicated) for fever and comfort. Patient also educated on other symptomatic management techniques. To be seen in 7-10 days if no improvement; sooner if worsening of symptoms. Patient advised of potential red flags and when appropriate to report to the ED. Patient verbalized understanding and agreement with all the above. Plan Details Other Medications: New: nitrofurantoin monohyd/m-cryst 100 mg administer with a meal/food; swallow whole; do not open, crush, dissolve , or chew 1 cap PO Q12H 7 days 14 caps 0RF Other Orders: Orders: POC Urinalysis Dip (Clinic) Today R30.0 03/29/22 [id number] <Electronically signed by Justin CHURCHILL> Date Justin CHURCHILL Cosigner Signature: Date (if applicable) CC: Sole Banegas DO Work Phone: Start: 03-29-[address] Solitario Banegas Work Phone: Start: 01-25-2022 Screening mammography Natalie Banegas Work Phone: Start: 01-25-2022 End: 01-25-2022 SCRN MAMM (CAD)W/SEAN BILAT Comments: See Note; NOTES: [facility] Imaging Services [address] [place] [address] SCRN MAMM (CAD)W/SEAN BILAT MR#: [id number] Acct: [id number] Name: YURI LOVE Rep #: [id number] : 1980 F 41 From: Caleb soto MD PCP: Dr. Sole Banegas, DO Status: REG CLI Study: SCRN MAMM (CAD)W/SEAN BILAT Date of Exam: 06/11 Exam# [id number] Ordering Dr: Jesus Sosa MD MAMMOGRAPHY - BILATERAL SCREENING REASON FOR EXAM: Female, 41 years old. Routine annual screening examination. PERTINENT HISTORY: Non-contributory. TECHNIQUE: Digital bilateral breast sean (3D mammographic acquisition) in the CC and MLO projections. 2-D mediolateral oblique (MLO) and craniocaudad (CC) views of both breasts were obtained. CAD: Full Field Digital Mammography with Computer Added Detection was performed. COMPARISON: Comparison is made with prior study dated 12/09/2020 and 12/04/2019. FINDINGS: Breast Composition: The breasts are extremely dense, which lowers the sensitivity of mammography. There are no dominant masses or suspicious calcifications. No other significant abnormalities are identified. There has been no significant change since the prior study. BI/SCRN MAMM (CAD)W/SEAN BILAT IMPRESSION: Stable bilateral screening mammogram. Yearly follow-up mammogram recommended. (A) ASSESSMENT CATEGORY: BIRADS Category 1: Negative. A letter regarding these results will be sent to the patient by the facility within 30 days. Approximately 10% of breast cancers are not detected by mammography. A normal mammogram should not delay biopsy of a clinically suspicious abnormality. [id number] Electronically Signed: Caleb Ramirez MD at 12:07 EST Reading Location ID and State: [address] [place] [address] , Service support , CC: Dr. Jesus Sosa MD; Dr. Sole Banegas DO Grinder Operator: Signed Sole Banegas DO Work Phone: Start: 09-02-2021 End: 09-16-2021 Urgent Care Visit Report Comments: See Note; NOTES: [facility] [address] [place] [address] [address] [place] [address] OFFICE VISIT Date of Service: 09/02/21 MR#: [id number] Acct: [id number] Name: YURI LOVE Rep #: [id number] : 1980 Provider: KERLINE lovell Age/Sex: 40/F Location: [facility] Status: Signed Intake Intake Visit Reasons: Urinary tract infection Allergies No Known Allergies Allergy (Verified 06/29/21 12:09) [facility] Medical History (Updated 06/29/21 @ 12:40 by KERLINE Stuart) Abdominal pain Acid reflux Cholelithiasis Diarrhea Dysuria Hematuria Nausea Urinary frequency Surgical History history corrective eye surgery History of tubal ligation S/P laparoscopic cholecystectomy ( 08/15/18) Social History Smoking Status: Never smoker alcohol intake: never substance use type: does not use HPI HPI Details: YURI LOVE, is a 40 F who presents to the office today for Coding Level of Care Code Off vis,est,level 3 Diagnoses Urinary tract infection N39.0 Hematuria R31.9 Urinary frequency R35.0 Assessment and Plan Assessment and Plan (1) Urinary tract infection: (2) Hematuria: Status: Acute Orders: Orders: POC Urinalysis Dip (Clinic) Today Culture, Urine Today Urinalysis, Complete Today Plan: See urinalysis dip and hCG results; urine sample sent off for UA and culture and sensitivity. Macrobid as prescribed today. Reinforced appropriate hygiene care. At patient request, urology referral placed today. Follow-up with urology or PCP in 3 to 5 days should symptoms not improve, sooner should symptoms worsen or any other concerns develop. Patient states acknowledging understanding all the above. This note was generated with Stepcase dictation software. It may contain incorrect words, spelling, and punctuation that were not noted in checking the note before signing. (3) Urinary frequency: Status: Acute Orders: Orders: POC Urinalysis Dip (Clinic) Today Culture, Urine Today Urinalysis, Complete Today Plan Details Other Medications: New: nitrofurantoin monohyd/m-cryst 100 mg (Macrobid) must administer with a meal/food 100 mg PO Q12H 5 days 10 caps 0RF 09/02/21 1142 <Electronically signed by David CHURCHILL> Date David CHURCHILL Cosigner Signature: Date (if applicable) CC: Sole Banegas DO Work Phone: Start: 06-29-2021 End: 06-29-2021 Urgent Care Visit Report Comments: See Note; NOTES: [facility] [address] [place] [address] OFFICE VISIT Date of Service: 06/29/21 MR#: [id number] Acct: [id number] Name: YURI LOVE Rep #: [id number] : 1980 Provider: KERLINE lovell Age/Sex: 40/F Location: [facility] Status: Signed Intake Vital Signs 06/29/21 12:06 BP 102/68 Blood Pressure Location Lt brachial Position Sitting Respiration 14 Pulse 82 Pulse Source Monitor Temp 98.0 F Temp Source Temporal Pulse Oximetry (%) 98 Oxygen Delivery Method room air Intake Visit Reasons: Urinary tract infection Allergies No Known Allergies Allergy (Verified 06/29/21 12:09) Medications desogestrel-e.estradiol 0.15 mg-0.02 mg(21)/e.estrad 0.01 mg(5) tablet 1 tab PO DAILY 07/17/18 [History Confirmed 01/23/21] multivitamin with folic acid 1 tab PO DAILY 08/01/18 [History Confirmed 06/29/21] [facility] Medical History (Updated 06/29/21 @ 12:40 by David CHURCHILL, KERLINE) Abdominal pain Acid reflux Cholelithiasis Diarrhea Dysuria Hematuria Nausea Urinary frequency Surgical History history corrective eye surgery History of tubal ligation S/P laparoscopic cholecystectomy ( 08/15/18) Social History Smoking Status: Never smoker alcohol intake: never substance use type: does not use HPI HPI Details: YURI LOVE, is a 40 F who presents to the office today for initial evaluation 2 to 3-day history of persistent dysuria and urinary frequency and mild low back pain with new onset hematuria appreciated yesterday morning. Patient states having history of metrorrhagia, eventually having an ablation performed this past November and has been symptom-free until above described symptoms. No bzbi-qzm-imgndra products taken to assist with symptoms. No complaints of fever, chills, sweats. No melena, hemotochezia; no urethral/vaginal discharge. History of cholecystectomy. No other associated symptoms and no other alleviating/ aggravating factors. ROS Const Constitutional: No other (as above) Exam Const General: cooperative, healthy appearing, comfortable and no acute distress Nutritional Appearance: average body habitus and well nourished Orientation: alert, awake and oriented x3 Neck Neck: normal visual inspection, full ROM, no lymphadenopathy, no meningeal signs and supple Neck mass: No Thyroid: thyroid normal Lymphatic: no lymphadenopathy noted Chest Chest palpation inspection: normal inspection of the chest Resp Effort Inspection: normal respiratory effort, able to speak in complete sentences and symmetric chest movement Cardio Rate: regular rate Pulses: radial pulses present GI Inspection: normal to inspection Palpation: soft, no hepatosplenomegaly, not firm, no guarding and tender suprapubicly; not in the epigastrum, not at McBurney's point, not periumbilically, Liang's sign negative, psoas sign negat reg and with no rebound tenderness General: No CVA tenderness (See urinalysis dip results) Skin General: no rashes or lesions noted Neuro General: patient alert, patient awake, patient oriented x3 and gait normal Cognition: normal cognition Speech: speech normal Gait: normal gait Motor: muscle tone normal throughout Sensory Exam: no sensory deficits noted Psych Appearance: grossly normal Mental Status: mental status grossly normal Mood: congruent mood Affect: normal affect Speech and Movement: speech and movement normal Attitude: cooperative Thought Process: normal Thought Content: normal Judgment: judgment good Results POC Urinalysis Dip (Clinic) Office Urine Color YELLOW Last Edit by Martha Billy on 06/29/21 12:11 Office Urine Clarity Clear Last Edit by Martha Billy on 06/29/21 12:11 Office Urine Glucose Negative Last Edit by Martha Billy on 06/29/21 12:11 Office Urine Ketones Negative Last Edit by Martha Billy on 06/29/21 12:11 Off Ur Spec [place] 1.030 Last Edit by Martha Billy on 06/29/21 12:11 Office Urine pH 6.0 Last Edit by Martha Billy on 06/29/21 12:11 Office Urine Bilirubin Negative Last Edit by Martha Billy on 06/29/21 12:11 Office Urine Urobilinogen Negative Last Edit by Martha Billy on 06/29/21 12:11 Office Urine Blood Moderate Last Edit by Martha Billy on 06/29/21 12:11 Office Urine Blood Hemolyzed Non-Hemolyzed Last Edit by Martha Billy on 06/29/21 12:11 Office Urine Protein Negative Last Edit by Martha Billy on 06/29/21 12:11 Office Urine Nitrate Negative Last Edit by Martha Billy on 06/29/21 12:11 Off Ur Leukocytes Negatve Last Edit by Martha Billy on 06/29/21 12:11 POC Urine Office , Urine Negative Last Edit by Martha Billy on 06/29/21 12:11 Coding Level of Care Code Off vis,new,level 3 Diagnoses Hematuria R31.9 Dysuria R30.0 Urinary frequency R35.0 Assessment and Plan Assessment and Plan (1) Hematuria: Status: Acute (2) Dysuria: Status: Acute (3) Urinary frequency: Status: Acute Orders: Orders: POC Urine Today R30.0 POC Urinalysis Dip (Clinic) Today R30.0 Culture, Urine Today R30.0 Urinalysis, Complete Today R30.0 Plan - David CHURCHILL PA: See urinalysis dip results; urine sample sent off for urinalysis as well as culture and sensitivity. Clear fluids, rest, Tylenol/Azo as needed for symptomatic relief. Follow-up with PCP or REGISTERED TRAVEL NURSE in 3 to 5 days should symptoms not improve, ED sooner should symptoms only worsen or any other concerns develop. Patient states acknowledging understanding all the above. This note was generated with Stepcase dictation software. It may contain incorrect words, spelling, and punctuation that were not noted in checking the note before signing. 06/29/21 1241 <Electronically signed by David CHURCHILL> Date David CHURCHILL Cosigner Signature: Date (if applicable) CC: Sole Banegas DO Work Phone: Start: 01-23-2021 End: 01-23-2021 Urgent Care Visit Report Comments: See Note; NOTES: [facility] [address] [place] [address] [address] [place] [address] OFFICE VISIT Date of Service: 01/23/21 MR#: [id number] Acct: [id number] Name: YURI LOVE Rep #: [id number] : 1980 Provider: KERLINE Xiao Age/Sex: 40/F Location: [facility] Status: Signed Intake Vital Signs 01/23/21 Height 5 ft 6 in 01/23/21 Weight: 156 lb 01/23/21 BMI 25.2 01/23/21 BP 112/72 01/23/21 Blood Pressure Location Lt brachial 01/23/21 Position Sitting 01/23/21 Respiration 14 01/23/21 Pulse 92 01/23/21 Pulse Source Monitor 01/23/21 Temp 98.2 F 01/23/21 Temp Source Temporal 01/23/21 Pulse Oximetry (%) 98 01/23/21 Oxygen Delivery Method room air Intake Visit Reasons: SORE THROAT Accompanied by: self Is patient in pain?: Yes (throat) Allergies No Known Allergies Allergy (Verified 01/23/21 16:24) Medications desogestrel-e.estradiol 0.15 mg-0.02 mg(21)/e.estrad 0.01 mg(5) tablet 1 tab PO DAILY 07/17/18 [History Confirmed 01/23/21] Multivitamins,Therapeutic [Multivitamin] 1 tab PO DAILY 08/01/18 [History Confirmed 01/23/21] [facility] Medical History Abdominal pain (Acute) Acid reflux (Acute) Cholelithiasis (Acute) Diarrhea (Acute) Nausea (Acute) Surgical History History of tubal ligation (Acute) S/P laparoscopic cholecystectomy (Acute 08/15/18) history corrective eye surgery (Acute) Social History (Updated 01/23/21 @ 17:30 by Justin CHURCHILL, KERLINE) Smoking Status: Never smoker alcohol intake: never substance use type: does not use HPI HPI Details: YURI LOVE, is a 40 F who presents to the office today for complaint of sore throat. Patient states she has had a sore throat starting yesterday and is concerned for strep. She denies fever, chills, sweats. No nausea, vomiting, diarrhea. No cough, shortness of breath or difficulty breathing. No loss of taste or smell. No known ill contacts. No other associated symptoms or alleviating/aggravating factors. ROS Const Constitutional: Positive for other (6 system ROS completed with pertinent findings in the HPI otherwise normal.) Exam Const General: cooperative, healthy appearing HENMT Head: normal to inspection Ears: hearing grossly normal bilaterally, TM's normal bilaterally, EAC's normal Nose: external nose normal, nasal discharge clear Mouth: oral mucosae normal Throat: abnormal tonsil bilaterally Resp Effort Inspection: normal respiratory effort Auscultation: Bilateral: Clear to Auscultation Cardio Palpation: normal PMI Rate: regular rate Rhythm: regular rhythm Neuro General: alert, CN's II-XI intact bilaterally Psych Appearance: grossly normal Mental Status: mental status grossly normal Results POC Radha Rapid Strep POC Radha Rapid Strep Negative Last Edit by Yelitza Negrete on 01/23/21 16:53 Assessment Plan Problems 1. Acute pharyngitis, unspecified etiology J02.9 Status Acute Plan Patient tested negative for strep using Radha rapid PCR. Encouraged to get plenty of rest, drink lots of clear liquids, and use Tylenol or Ibuprofen (unless contraindicated) for fever and comfort. Patient also educated on other symptomatic management techniques. To be seen in 7-10 days if no improvement; sooner if worsening of symptoms. Patient advised of potential red flags and when appropriate to report to the ED. Patient verbalized understanding and agreement with all the above. Orders Orders: POC Radha Rapid Strep A Today Coding Level of Care Code Off vis,new,level 3 Diagnoses Acute pharyngitis, unspecified etiology J02.9 ?Pharyngitis/tonsillit is etiology: unspecified etiology 01/23/21 1730 <Electronically signed by Justin CHURCHILL> Date Justin CHURCHILL Cosigner Signature: Date (if applicable) CC: Sole Banegas DO Work Phone: Start: 12-09-2020 End: 12-09-2020 SCRN MAMM (CAD)W/SEAN BILAT Comments: See Note; NOTES: [facility] Imaging Services [address] [place] [address] SCRN MAMM (CAD)W/SEAN BILAT MR#: [id number] Acct: [id number] Name: YURI LOVE Rep #: [id number] : 1980 F 40 From: Caleb soto MD PCP: Dr. Sole Banegas, DO Status: [facility] Study: SCRN MAMM (CAD)W/SEAN BILAT Date of Exam: 11/21 08/11 Exam# [id number] Ordering Dr: Jesus Sosa MD MAMMOGRAPHY - BILATERAL SCREENING REASON FOR EXAM: Female, 40 years old. Routine annual screening examination. PERTINENT HISTORY: Non-contributory. TECHNIQUE: Digital bilateral breast sean (3D mammographic acquisition) in the CC and MLO projections. 2-D mediolateral oblique (MLO) and craniocaudad (CC) views of both breasts were obtained. CAD: Full Field Digital Mammography with Computer Added Detection was performed. COMPARISON: Comparison is made with prior examination dated 12/04/2019 and 10/17/2018. FINDINGS: Breast Composition: The breasts are extremely dense, which lowers the sensitivity of mammography. There are no dominant masses or suspicious calcifications. No other significant abnormalities are identified. There has been no significant change since the prior study. BI/SCRN MAMM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 possibility of bleeding, infection and injury to surrounding structures such as bowel and bladder and desired that we proceed. All questions were answered. DESCRIPTION OF PROCEDURE: The patient was taken to the operating [...] Jaida cannula was placed. Attention was turned toward the laparoscopic portion of the procedure. Approximately 25 mL of 0.5% ropivacaine were injected subumbilically and suprapubically. A 5 mm Ethicon trocar was inserted subumbilically and intraperitoneal placement confirmed with hanging drop technique. Under direct visualization, a 7/8 mm bladeless Ethicon trocar was placed and the above findings were noted. Monopolar on a setting of 50 power was initially used to divide the mesosalpinx on the right and eventually bipolar in the setting of 35 power. Coagulation was used to divide the mesosalpinx on the left. After removing the fallopian tube specimens, Filshie clips were placed on the stumps of each fallopian tube. Hemostasis was noted. Bilateral visualization of ureteral function was noted. Laparoscopic instruments with as much CO2 gas as possible was removed and incisions were closed with running and interrupted 3-0 Monocryl suture. Steri- Strips placed across the incision. It should also be noted that an alligator grasper was used to manipulate tubes through a needle size port midway between these 2 port sites. Vaginal instruments were removed. The patient tolerated the procedure well and was taken to recovery room in satisfactory condition. Sponge, instrument, needle counts were all reported correct. Estimated blood loss for the case was minimal. There were no apparent complications of the surgery. SPECIMENS TO PATHOLOGY: Bilateral fallopian tubes. Jesus Sosa MD T: MATTEO JOB: [id number] 10/24/14 1113 <Electronically signed by Jesus Sosa MD> Date Jesus Sosa MD CC: Jesus Sosa MD; Sole Banegas DO Date Dictated: 10/24/14835 Date Transcribed: 10/24/14835 Grinder Operator: Signed Sole Banegas Start: 10-24-2014 End: 10-24-2014 Discharge Instruction Comments: See Note; NOTES: [facility] Medical Records Department [address] [place] [address] Instructions for Home/Discharge Instructions 10/24/1433 MR#: [id number] Acct: [id number] Name: YURI LOVE Rep #: [id number] : 1980 34 From: Jesus Sosa MD PCP: Sole Banegas DO Status: REG [facility] [place] Discharge Activity: Return to Normal Activity, May Drive - when you are no longer taking pain/narcotic medicines., May Shower, May Take a Tub Bath May resume sexual activity in: 1-2 weeks Additional Activity Instructions:: Ambulate often the next week after surgery. Nothing in the vagina for 5 days. [...] PO Q4H PRN PRN #20 tablet The following prescriptions were given: Hydrocodone/Acetaminophen [Vicodin 5-300 mg Tablet] 1 - 2 tablet PO Q4H PRN PRN #20 tablet PRN Reason: Mod-Severe (Pain Scale 6-10) Please Follow Up With: Jesus Sosa - [phone] When: 2-3 weeks 10/24/1435 <Electronically signed by Jesus Sosa MD> Date Jesus Sosa MD CC: Sole Mera H/O: tubal ligation History of tubal liga tion Dr. Sole Banegas Work Phone: Laser Surgery Leann Oliverlea r Comment on above: Date: 2014. eye Laser Surgery Laura Thad triana Comment on above: Date: 2014. eye Laser Surgery Megan Ornelas Comment on above: Date: 2014. eye Laser Surgery Lynnette Killian Comment on above: Date: 2014. eye Laser surgery Lynnette Killian Comment on above: Date: 2014. eye Ligation of fallopia n tube Leann Boydlear Comment on above: Date: 10/24/2014. Ligation of fallopia n tube Laura Sandra Comment on above: Date: 10/24/2014. Ligation of fallopia n tube Megan Gravius Comment on above: Date: 10/24/2014. Ligation of fallopia n tube Lynnette Cross Comment on above: Date: 10/24/2014. Plan of Treatment Date Care Activity Detail Author Start: 01-19-2023 Liquid based cervica l cytology screening [facility] Start: 10-08-2020 Lipid panel LIPID PANEL (85771) [facility] Work Phone: Comment on above: to do in march 2021 Start: 10-08-2020 Procedure Education Eprescribe d prescriptions (G8553) [facility] Work Phone: Start: 10-08-2020 Provider Instruction s for Treatment [facility] Work Phone: Start: 10-06-2020 Procedure Education Eprescribe d prescriptions (G8553) [facility] Work Phone: Start: 10-06-2020 Provider Instruction s for Treatment [facility] Work Phone: Start: 10-06-2020 Lipid panel LIPID PANEL (71302) [facility] Work Phone: Start: 10-06-2020 Comprehensive metabo lic panel METABOLIC PANEL, COMPREHENSIVE (42758) [facility] Work Phone: Start: 10-06-2020 Blood count complete auto&auto difrntl wbc CBC W/AUTO DIFF WBC (75965) [facility] Work Phone: Start: 10-06-2020 Assay of thyroid stimulating hormone tsh TSH (96974) [facility]; [facility] Work Phone: Start: 10-06-2020 TSH Qn TSH (68134) [facility] Work Phone: Start: 08-30-2019 Procedure Education Eprescribe d prescriptions (G8553) [facility] Work Phone: Start: 08-30-2019 Provider Instruction s for Treatment *URI Treatment [facility] Work Phone: Start: 10-31-2018 Procedure Education Eprescribe d prescriptions (G8553) [facility] Work Phone: Start: 10-31-2018 Provider Instruction s for Treatment [facility] Work Phone: Start: 06-19-2018 Provider Instruction s for Treatment [facility] Work Phone: Start: 05-09-2017 Procedure Education Eprescribe d prescriptions (G8553) [facility] Work Phone: Start: 05-09-2017 Provider Instruction s for Treatment Follow up if no improvement or if symptoms worsen [facility] Work Phone: Start: 05-02-2017 Procedure Education Eprescribe d prescriptions (G8553) [facility] Work Phone: Start: 12-13-2016 Procedure Education Eprescribe d prescriptions (G8553) [facility] Work Phone: Start: 05-06-2016 Procedure Education Eprescribe d prescriptions (G8553) [facility] Work Phone: Start: 07-25-2015 Provider Instruction s for Treatment [facility] Work Phone: Start: 02-28-2015 Provider Instruction s for Treatment Follow up if no improvement or if symptoms worsen [facility] Work Phone: Start: 04-09-2014 Provider Instruction s for Treatment [facility] Work Phone: Start: 12-03-2011 Provider Instruction s for Treatment Follow up if no improvement or if symptoms worsen [facility] Work Phone: Start: 02-19-2011 Provider Instruction s for Treatment Reviewed Lab [facility] Work Phone: Start: 02-05-2011 Antinuclear antibodi es jaylyn JAYLYN (ANTINUCLEAR ANTIBODY) (36545) [facility]; [facility] Work Phone: Start: 02-05-2011 Nuclear Ab IF titer (S) JAYLYN (A NTINUCLEAR ANTIBODY) (55960) [facility] Work Phone: Start: 02-05-2011 C-reactive protein C-REACTIVE PROTEIN (94565) [facility]; [facility] Work Phone: Start: 02-05-2011 CRP mass conc C-REACTIVE PRO TEIN (69813) [facility] Work Phone: Start: 02-05-2011 Sedimentation rate r bc non-automated SED RATE ERYTHROCYTE (54674) [facility] Work Phone: Start: 02-05-2011 Assay of thyroid stimulating hormone tsh TSH (43372) [facility]; [facility] Work Phone: Start: 02-05-2011 Thyrotropin Qn TSH (79766) [facility] Work [facility]: Start: 02-05-2011 Comprehensive metabo lic panel METABOLIC PANEL, COMPREHENSIVE (29721) [facility] Work Phone: Start: 02-05-2011 Lipid panel LIPID PANEL (28593) [facility] Work Phone: Start: 02-05-2011 Blood count manual c ell count each CBC WITH MANUAL DIFF (39872) [facility] Work Phone: Start: 02-05-2011 Provider Instruction s for Treatment FOLLOW UP IN 2 WEEKS [facility] Work Phone: Start: 03-03-2009 Provider Instruction s for Treatment [facility] Work Phone: Start: 09-10-2008 Lipid panel LIPID PANEL (10769) [facility] Work Phone: MG Breast - bilatera l Screening [facility] MG Breast - bilatera l Screening [facility] Path report.final Dx Spec [facility] Work Phone: [facility] Work Phone: [facility] Work Phone: [facility] Work Phone: [facility] Work Phone: [facility] Work Phone: [facility] Work Phone: [facility] Immunizations Immunization Date Immunization Notes Care Provider Seng nelson 09-04-2020 influenza, seasonal, injectable Sole Banegas [facility] Certified [facility] Work Phone: Payers Date Payer Category Payer Self-pay [id number] 2024 Unknown [id number] 2016 Unknown [id number] Unknown Unknown [id number] [id number] Unknown [id number] [id number] Unknown [id number] [id number] Unknown [id number] [id number] [id number] Unknown [id number] [id number] [id number] Unknown [id number] [id number] [id number] Social History Date Type Detail Facility Alcohol Use Never smoker [facility] Work Phone: Comment on above: Occasional alcohol u se qd Light Lives with spouse none Tobacco use: Never smoker. [facility] Work Phone: Tobacco use: Tobacco use: [facility] Work Phone: Start: 03-29-2022 End: 01-25-2024 Tobacco smoking status NHIS Unknown if ever smoked [facility] Start: 11-25-2020 Non-smoker [facility] Start: 1980 Sex Assigned At Female [facility] Start: 05-11-2024 Tobacco smoking stat [facility] Never smoked tobacco (finding) [facility] Start: 03-15-2025 Sex Female (finding) [facility] Medical Equipment Procedure Code Equipment Code Equipment Origin al Text Equipment Identifier Dates Total cholecystectomy with exploration of common bile duct CLIP,DEEPA WING FDA Start: 08-15-2018 Total cholecystectomy with exploration of common bile duct CLIP,DEEPA WING FDA Start: 08-15-2018 Total cholecystectomy with exploration of common bile duct CLIP,DEEPA WING FDA Start: 08-15-2018 Total cholecystectomy with exploration of common bile duct CLIP,DEEPA WING FDA Start: 08-15-2018 Total cholecystectomy with exploration of common bile duct CLIP,DEEPA WING FDA Start: 08-15-2018 Total cholecystectomy with exploration of common bile duct CLIP,DEEPA WING FDA Start: 08-15-2018 Total cholecystectomy with exploration of common bile duct CLIP,DEEPA WING FDA Start: 08-15-2018 Total cholecystectomy with exploration of common bile duct CLIP,DEEPA WING FDA Start: 08-15-2018 Total cholecystectomy with exploration of common bile duct CLIP,DEEPA WING FDA Start: 08-15-2018 Total cholecystectomy with exploration of common bile duct CLIP,DEEPA WING FDA Start: 08-15-2018 Total cholecystectomy with exploration of common bile duct CLIP,DEEPA WING FDA Start: 08-15-2018 Total cholecystectomy with exploration of common bile duct CLIP,DEEPA WING FDA Start: 08-15-2018 Total cholecystectomy with exploration of common bile duct CLIP,DEEPA WING FDA Start: 08-15-2018 Total cholecystectomy with exploration of common bile duct CLIP,DEEPA WING FDA Start: 08-15-2018 Total cholecystectomy with exploration of common bile duct CLIP,DEEPA [employer] FDA Start: 08-15-2018 Total cholecystectomy with exploration of common bile duct CLIP,DEEPA WING FDA Start: 08-15-2018 Fusion, joint Orthopaedic bone staple, non-adjustable ()[id number] FDA Start: 05-18-2024 Fusion, joint Orthopaedic bone screw (non-sliding) ()[id number] FDA Start: 05-18-2024 Clinical Notes 01-19-2023 to 03-01-2025 Note Date & Type Note Facility 03-01-2025 Evaluation note Diagnosis Onset Date Resolution Encounter for routine gynecological examination noneactive March 01, 2025 2:14pm [facility] Work Phone: [phone] 320-851503-06-2024 NotePap Smear Specimen AdequacyMarch 2023 1:29pmComment.Satisfactory for evaluation. Endocervical and/or squamous metaplasticcells (endocervical component)are present.[facility][id number] above:Satisfactory for evaluation. Endocervical and/or squamous metaplasticcells (endocervical component)are present.01-25-2024 NotePap Smear Specimen AdequacyMarch 2023 1:29pmComment.Satisfactory for evaluation. Endocervical and/or squamous metaplasticcells (endocervical component)are present.[facility] A#[id number] HospitalComment on above:Satisfactory for evaluation. Endocervical and/or squamous metaplasticcells (endocervical component)are present.01-25-2024 NotePap Smear Specimen AdequacyMarch 2023 1:29pmComment.Satisfactory for evaluation. Endocervical and/or squamous metaplasticcells (endocervical component)are present.[facility] A#[id number] on above:Satisfactory for evaluation. Endocervical and/or squamous metaplasticcells (endocervical component)are present.01-19-2023 NotePap Smear Specimen AdequacyMarch 2022 2:52pmComment.Satisfactory for evaluation. Endocervical and/or squamous metaplasticcells (endocervical component)are present.[facility] A#[id number] [facility] HospitalComment on above:Satisfactory for evaluation. Endocervical and/or squamous metaplasticcells (endocervical component)are present.Evaluation note* Diagnosis Onset Date Resolution Status Urinary tract infection acut e [facility] Work Phone: Evaluation note* Diagnosis Onset Date Resolution Status Vasomotor flushing acute Encounter for routine gynecological examination noneactive [facility] Work Phone: Evaluation note* Diagnosis Onset Date Resolution Status Encounter for routine gynecological examination noneactive [facility] Work Phone: Instructions* Name Dates Details How to access health informa tion online Indication:Nonsmoker Start:08-Oct-2020 Instruction Type:Patient Education How to access health informa tion online - Detail Indication:Nonsmoker Start:08-Oct-2020 Instruction Type:Patient Education Patient Instructions Indication:Nonsmoker Start:08-Oct-2020 Instruction Type:Provider Instructions for Treatment How to access health informa tion online Indication:Nonsmoker Start:06-Oct-2020 Instruction Type:Patient Education How to access health informa tion online - Detail Indication:Nonsmoker Start:06-Oct-2020 Instruction Type:Patient Education Patient Instructions Indication:Nonsmoker Start:06-Oct-2020 Instruction Type:Provider Instructions for Treatment How to access health informa tion online Indication:Sore throat Start:30-Aug-2019 Instruction Type:Patient Education How to access health informa tion online - Detail Indication:Sore throat Start:30-Aug-2019 Instruction Type:Patient Education Patient Instructions Indication:Sore throat Start:30-Aug-2019 Instruction Type:Provider Instructions for Treatment How to access health informa tion online Indication:Nonsmoker Start:31-Oct-2018 Instruction Type:Patient Education How to access health informa tion online - Detail Indication:Nonsmoker Start:31-Oct-2018 Instruction Type:Patient Education Patient Instructions Indication:Nonsmoker Start:31-Oct-2018 Instruction Type:Provider Instructions for Treatment How to access health informa tion online Indication:BMI 22.0-22.9, adult Start:19-Jun-2018 Instruction Type:Patient Education How to access health informa tion online - Detail Indication:BMI 22.0-22.9, adult Start:19-Jun-2018 Instruction Type:Patient Education Patient Instructions Indication:BMI 22.0-22.9, adult Start:19-Jun-2018 Instruction Type:Provider Instructions for Treatment How to access health informa tion online Indication:Sore throat Start:09-May-2017 Instruction Type:Patient Education How to access health informa tion online - Detail Indication:Sore throat Start:09-May-2017 Instruction Type:Patient Education Patient Instructions Indication:Sore throat Start:09-May-2017 Instruction Type:Provider Instructions for Treatment Patient Instructions Indication:Tonsillitis with exudate Start:02-May-2017 Instruction Type:Provider Instructions for Treatment How to access health informa tion online Indication:Body mass index (BMI) 20.0-20.9, adult Start:02-May-2017 Instruction Type:Patient Education How to access health informa tion online - Detail Indication:Shoulder pain, right Start:13-Dec-2016 Instruction Type:Patient Education Patient Instructions Indication:Shoulder pain, right Start:13-Dec-2016 Instruction Type:Provider Instructions for Treatment How to access health informa tion online Indication:Dysuria Start:06-May-2016 Instruction Type:Patient Education How to access health informa tion online - Detail Indication:Dysuria Start:06-May-2016 Instruction Type:Patient Education Patient Instructions Indication:Dysuria Start:06-May-2016 Instruction Type:Provider Instructions for Treatment [facility] Work Phone: Instructions* Name Dates Details How to access health informa tion online Indication:Nonsmoker Start:08-Oct-2020 Instruction Type:Patient Education How to access health informa tion online - Detail Indication:Nonsmoker Start:08-Oct-2020 Instruction Type:Patient Education Patient Instructions Indication:Nonsmoker Start:08-Oct-2020 Instruction Type:Provider Instructions for Treatment How to access health informa tion online Indication:Nonsmoker Start:06-Oct-2020 Instruction Type:Patient Education How to access health informa tion online - Detail Indication:Nonsmoker Start:06-Oct-2020 Instruction Type:Patient Education Patient Instructions Indication:Nonsmoker Start:06-Oct-2020 Instruction Type:Provider Instructions for Treatment How to access health informa tion online Indication:Sore throat Start:30-Aug-2019 Instruction Type:Patient Education How to access health informa tion online - Detail Indication:Sore throat Start:30-Aug-2019 Instruction Type:Patient Education Patient Instructions Indication:Sore throat Start:30-Aug-2019 Instruction Type:Provider Instructions for Treatment How to access health informa tion online Indication:Nonsmoker Start:31-Oct-2018 Instruction Type:Patient Education How to access health informa tion online - Detail Indication:Nonsmoker Start:31-Oct-2018 Instruction Type:Patient Education Patient Instructions Indication:Nonsmoker Start:31-Oct-2018 Instruction Type:Provider Instructions for Treatment How to access health informa tion online Indication:BMI 22.0-22.9, adult Start:19-Jun-2018 Instruction Type:Patient Education How to access health informa tion online - Detail Indication:BMI 22.0-22.9, adult Start:19-Jun-2018 Instruction Type:Patient Education Patient Instructions Indication:BMI 22.0-22.9, adult Start:19-Jun-2018 Instruction Type:Provider Instructions for Treatment How to access health informa tion online Indication:Sore throat Start:09-May-2017 Instruction Type:Patient Education How to access health informa tion online - Detail Indication:Sore throat Start:09-May-2017 Instruction Type:Patient Education Patient Instructions Indication:Sore throat Start:09-May-2017 Instruction Type:Provider Instructions for Treatment Patient Instructions Indication:Tonsillitis with exudate Start:02-May-2017 Instruction Type:Provider Instructions for Treatment How to access health informa tion online Indication:Body mass index (BMI) 20.0-20.9, adult Start:02-May-2017 Instruction Type:Patient Education How to access health informa tion online - Detail Indication:Shoulder pain, right Start:13-Dec-2016 Instruction Type:Patient Education Patient Instructions Indication:Shoulder pain, right Start:13-Dec-2016 Instruction Type:Provider Instructions for Treatment How to access health informa tion online Indication:Dysuria Start:06-May-2016 Instruction Type:Patient Education How to access health informa tion online - Detail Indication:Dysuria Start:06-May-2016 Instruction Type:Patient Education Patient Instructions Indication:Dysuria Start:06-May-2016 Instruction Type:Provider Instructions for Treatment [facility]; [facility] Work Phone: reason for referral (narrative)No reason for referral information availableWHighland [facility] Work Phone: Instructions Name Dates Details Nonsmoker : How to access he alth information online Indication:Nonsmoker Nonsmoker : How to access he alth information online - Detail Indication:Nonsmoker Nonsmoker : Patient Instruct ions Indication:Nonsmoker BMI 22.0-22.9, adult : How t o access health information online Indication:BMI 22.0-22.9, adult BMI 22.0-22.9, adult : How t o access health information online - Detail Indication:BMI 22.0-22.9, adult BMI 22.0-22.9, adult : Patie nt Instructions Indication:BMI 22.0-22.9, adult Sore throat : How to access health information online Indication:Sore throat Sore throat : How to access health information online - Detail Indication:Sore throat Sore throat : Patient Instru ctions Indication:Sore throat Tonsillitis with exudate : P atient Instructions Indication:Tonsillitis with exudate Body mass index (BMI) 20.0-2 0.9, adult : How to access health information online Indication:Body mass index (BMI) 20.0-20.9, adult Shoulder pain, right : How t o access health information online - Detail Indication:Shoulder pain, right Shoulder pain, right : Patie nt Instructions Indication:Shoulder pain, right Dysuria : How to access heal th information online Indication:Dysuria Dysuria : How to access heal th information online - Detail Indication:Dysuria Dysuria : Patient Instructio ns Indication:Dysuria Name Dates Details How to access health informa tion online Indication:Sore throat Start:30-Aug-2019 Instruction Type:Patient Education How to access health informa tion online - Detail Indication:Sore throat Start:30-Aug-2019 Instruction Type:Patient Education Patient Instructions Indication:Sore throat Start:30-Aug-2019 Instruction Type:Provider Instructions for Treatment How to access health informa tion online Indication:Nonsmoker Start:31-Oct-2018 Instruction Type:Patient Education How to access health informa tion online - Detail Indication:Nonsmoker Start:31-Oct-2018 Instruction Type:Patient Education Patient Instructions Indication:Nonsmoker Start:31-Oct-2018 Instruction Type:Provider Instructions for Treatment How to access health informa tion online Indication:BMI 22.0-22.9, adult Start:19-Jun-2018 Instruction Type:Patient Education How to access health informa tion online - Detail Indication:BMI 22.0-22.9, adult Start:19-Jun-2018 Instruction Type:Patient Education Patient Instructions Indication:BMI 22.0-22.9, adult Start:19-Jun-2018 Instruction Type:Provider Instructions for Treatment How to access health informa tion online Indication:Sore throat Start:09-May-2017 Instruction Type:Patient Education How to access health informa tion online - Detail Indication:Sore throat Start:09-May-2017 Instruction Type:Patient Education Patient Instructions Indication:Sore throat Start:09-May-2017 Instruction Type:Provider Instructions for Treatment Patient Instructions Indication:Tonsillitis with exudate Start:02-May-2017 Instruction Type:Provider Instructions for Treatment How to access health informa tion online Indication:Body mass index (BMI) 20.0-20.9, adult Start:02-May-2017 Instruction Type:Patient Education How to access health informa tion online - Detail Indication:Shoulder pain, right Start:13-Dec-2016 Instruction Type:Patient Education Patient Instructions Indication:Shoulder pain, right Start:13-Dec-2016 Instruction Type:Provider Instructions for Treatment How to access health informa tion online Indication:Dysuria Start:06-May-2016 Instruction Type:Patient Education How to access health informa tion online - Detail Indication:Dysuria Start:06-May-2016 Instruction Type:Patient Education Patient Instructions Indication:Dysuria Start:06-May-2016 Instruction Type:Provider Instructions for Treatment Name Dates Details How to access health informa tion online Indication:Sore throat Start:30-Aug-2019 Instruction Type:Patient Education How to access health informa tion online - Detail Indication:Sore throat Start:30-Aug-2019 Instruction Type:Patient Education Patient Instructions Indication:Sore throat Start:30-Aug-2019 Instruction Type:Provider Instructions for Treatment How to access health informa tion online Indication:Nonsmoker Start:31-Oct-2018 Instruction Type:Patient Education How to access health informa tion online - Detail Indication:Nonsmoker Start:31-Oct-2018 Instruction Type:Patient Education Patient Instructions Indication:Nonsmoker Start:31-Oct-2018 Instruction Type:Provider Instructions for Treatment How to access health informa tion online Indication:BMI 22.0-22.9, adult Start:19-Jun-2018 Instruction Type:Patient Education How to access health informa tion online - Detail Indication:BMI 22.0-22.9, adult Start:19-Jun-2018 Instruction Type:Patient Education Patient Instructions Indication:BMI 22.0-22.9, adult Start:19-Jun-2018 Instruction Type:Provider Instructions for Treatment How to access health informa tion online Indication:Sore throat Start:09-May-2017 Instruction Type:Patient Education How to access health informa tion online - Detail Indication:Sore throat Start:09-May-2017 Instruction Type:Patient Education Patient Instructions Indication:Sore throat Start:09-May-2017 Instruction Type:Provider Instructions for Treatment Patient Instructions Indication:Tonsillitis with exudate Start:02-May-2017 Instruction Type:Provider Instructions for Treatment How to access health informa tion online Indication:Body mass index (BMI) 20.0-20.9, adult Start:02-May-2017 Instruction Type:Patient Education How to access health informa tion online - Detail Indication:Shoulder pain, right Start:13-Dec-2016 Instruction Type:Patient Education Patient Instructions Indication:Shoulder pain, right Start:13-Dec-2016 Instruction Type:Provider Instructions for Treatment How to access health informa tion online Indication:Dysuria Start:06-May-2016 Instruction Type:Patient Education How to access health informa tion online - Detail Indication:Dysuria Start:06-May-2016 Instruction Type:Patient Education Patient Instructions Indication:Dysuria Start:06-May-2016 Instruction Type:Provider Instructions for Treatment Name Dates Details How to access health informa tion online Indication:Nonsmoker Start:06-Oct-2020 Instruction Type:Patient Education How to access health informa tion online - Detail Indication:Nonsmoker Start:06-Oct-2020 Instruction Type:Patient Education Patient Instructions Indication:Nonsmoker Start:06-Oct-2020 Instruction Type:Provider Instructions for Treatment How to access health informa tion online Indication:Sore throat Start:30-Aug-2019 Instruction Type:Patient Education How to access health informa tion online - Detail Indication:Sore throat Start:30-Aug-2019 Instruction Type:Patient Education Patient Instructions Indication:Sore throat Start:30-Aug-2019 Instruction Type:Provider Instructions for Treatment How to access health informa tion online Indication:Nonsmoker Start:31-Oct-2018 Instruction Type:Patient Education How to access health informa tion online - Detail Indication:Nonsmoker Start:31-Oct-2018 Instruction Type:Patient Education Patient Instructions Indication:Nonsmoker Start:31-Oct-2018 Instruction Type:Provider Instructions for Treatment How to access health informa tion online Indication:BMI 22.0-22.9, adult Start:19-Jun-2018 Instruction Type:Patient Education How to access health informa tion online - Detail Indication:BMI 22.0-22.9, adult Start:19-Jun-2018 Instruction Type:Patient Education Patient Instructions Indication:BMI 22.0-22.9, adult Start:19-Jun-2018 Instruction Type:Provider Instructions for Treatment How to access health informa tion online Indication:Sore throat Start:09-May-2017 Instruction Type:Patient Education How to access health informa tion online - Detail Indication:Sore throat Start:09-May-2017 Instruction Type:Patient Education Patient Instructions Indication:Sore throat Start:09-May-2017 Instruction Type:Provider Instructions for Treatment Patient Instructions Indication:Tonsillitis with exudate Start:02-May-2017 Instruction Type:Provider Instructions for Treatment How to access health informa tion online Indication:Body mass index (BMI) 20.0-20.9, adult Start:02-May-2017 Instruction Type:Patient Education How to access health informa tion online - Detail Indication:Shoulder pain, right Start:13-Dec-2016 Instruction Type:Patient Education Patient Instructions Indication:Shoulder pain, right Start:13-Dec-2016 Instruction Type:Provider Instructions for Treatment How to access health informa tion online Indication:Dysuria Start:06-May-2016 Instruction Type:Patient Education How to access health informa tion online - Detail Indication:Dysuria Start:06-May-2016 Instruction Type:Patient Education Patient Instructions Indication:Dysuria Start:06-May-2016 Instruction Type:Provider Instructions for Treatment Name Dates Details How to access health informa tion online Indication:Nonsmoker Start:06-Oct-2020 Instruction Type:Patient Education How to access health informa tion online - Detail Indication:Nonsmoker Start:06-Oct-2020 Instruction Type:Patient Education Patient Instructions Indication:Nonsmoker Start:06-Oct-2020 Instruction Type:Provider Instructions for Treatment How to access health informa tion online Indication:Sore throat Start:30-Aug-2019 Instruction Type:Patient Education How to access health informa tion online - Detail Indication:Sore throat Start:30-Aug-2019 Instruction Type:Patient Education Patient Instructions Indication:Sore throat Start:30-Aug-2019 Instruction Type:Provider Instructions for Treatment How to access health informa tion online Indication:Nonsmoker Start:31-Oct-2018 Instruction Type:Patient Education How to access health informa tion online - Detail Indication:Nonsmoker Start:31-Oct-2018 Instruction Type:Patient Education Patient Instructions Indication:Nonsmoker Start:31-Oct-2018 Instruction Type:Provider Instructions for Treatment How to access health informa tion online Indication:BMI 22.0-22.9, adult Start:19-Jun-2018 Instruction Type:Patient Education How to access health informa tion online - Detail Indication:BMI 22.0-22.9, adult Start:19-Jun-2018 Instruction Type:Patient Education Patient Instructions Indication:BMI 22.0-22.9, adult Start:19-Jun-2018 Instruction Type:Provider Instructions for Treatment How to access health informa tion online Indication:Sore throat Start:09-May-2017 Instruction Type:Patient Education How to access health informa tion online - Detail Indication:Sore throat Start:09-May-2017 Instruction Type:Patient Education Patient Instructions Indication:Sore throat Start:09-May-2017 Instruction Type:Provider Instructions for Treatment Patient Instructions Indication:Tonsillitis with exudate Start:02-May-2017 Instruction Type:Provider Instructions for Treatment How to access health informa tion online Indication:Body mass index (BMI) 20.0-20.9, adult Start:02-May-2017 Instruction Type:Patient Education How to access health informa tion online - Detail Indication:Shoulder pain, right Start:13-Dec-2016 Instruction Type:Patient Education Patient Instructions Indication:Shoulder pain, right Start:13-Dec-2016 Instruction Type:Provider Instructions for Treatment How to access health informa tion online Indication:Dysuria Start:06-May-2016 Instruction Type:Patient Education How to access health informa tion online - Detail Indication:Dysuria Start:06-May-2016 Instruction Type:Patient Education Patient Instructions Indication:Dysuria Start:06-May-2016 Instruction Type:Provider Instructions for Treatment Name Dates Details How to access health informa tion online Indication:Nonsmoker Start:08-Oct-2020 Instruction Type:Patient Education How to access health informa tion online - Detail Indication:Nonsmoker Start:08-Oct-2020 Instruction Type:Patient Education Patient Instructions Indication:Nonsmoker Start:08-Oct-2020 Instruction Type:Provider Instructions for Treatment How to access health informa tion online Indication:Nonsmoker Start:06-Oct-2020 Instruction Type:Patient Education How to access health informa tion online - Detail Indication:Nonsmoker Start:06-Oct-2020 Instruction Type:Patient Education Patient Instructions Indication:Nonsmoker Start:06-Oct-2020 Instruction Type:Provider Instructions for Treatment How to access health informa tion online Indication:Sore throat Start:30-Aug-2019 Instruction Type:Patient Education How to access health informa tion online - Detail Indication:Sore throat Start:30-Aug-2019 Instruction Type:Patient Education Patient Instructions Indication:Sore throat Start:30-Aug-2019 Instruction Type:Provider Instructions for Treatment How to access health informa tion online Indication:Nonsmoker Start:31-Oct-2018 Instruction Type:Patient Education How to access health informa tion online - Detail Indication:Nonsmoker Start:31-Oct-2018 Instruction Type:Patient Education Patient Instructions Indication:Nonsmoker Start:31-Oct-2018 Instruction Type:Provider Instructions for Treatment How to access health informa tion online Indication:BMI 22.0-22.9, adult Start:19-Jun-2018 Instruction Type:Patient Education How to access health informa tion online - Detail Indication:BMI 22.0-22.9, adult Start:19-Jun-2018 Instruction Type:Patient Education Patient Instructions Indication:BMI 22.0-22.9, adult Start:19-Jun-2018 Instruction Type:Provider Instructions for Treatment How to access health informa tion online Indication:Sore throat Start:09-May-2017 Instruction Type:Patient Education How to access health informa tion online - Detail Indication:Sore throat Start:09-May-2017 Instruction Type:Patient Education Patient Instructions Indication:Sore throat Start:09-May-2017 Instruction Type:Provider Instructions for Treatment Patient Instructions Indication:Tonsillitis with exudate Start:02-May-2017 Instruction Type:Provider Instructions for Treatment How to access health informa tion online Indication:Body mass index (BMI) 20.0-20.9, adult Start:02-May-2017 Instruction Type:Patient Education How to access health informa tion online - Detail Indication:Shoulder pain, right Start:13-Dec-2016 Instruction Type:Patient Education Patient Instructions Indication:Shoulder pain, right Start:13-Dec-2016 Instruction Type:Provider Instructions for Treatment How to access health informa tion online Indication:Dysuria Start:06-May-2016 Instruction Type:Patient Education How to access health informa tion online - Detail Indication:Dysuria Start:06-May-2016 Instruction Type:Patient Education Patient Instructions Indication:Dysuria Start:06-May-2016 Instruction Type:Provider Instructions for Treatment Name Dates Details How to access health informa tion online Indication:Nonsmoker Start:08-Oct-2020 Instruction Type:Patient Education How to access health informa tion online - Detail Indication:Nonsmoker Start:08-Oct-2020 Instruction Type:Patient Education Patient Instructions Indication:Nonsmoker Start:08-Oct-2020 Instruction Type:Provider Instructions for Treatment How to access health informa tion online Indication:Nonsmoker Start:06-Oct-2020 Instruction Type:Patient Education How to access health informa tion online - Detail Indication:Nonsmoker Start:06-Oct-2020 Instruction Type:Patient Education Patient Instructions Indication:Nonsmoker Start:06-Oct-2020 Instruction Type:Provider Instructions for Treatment How to access health informa tion online Indication:Sore throat Start:30-Aug-2019 Instruction Type:Patient Education How to access health informa tion online - Detail Indication:Sore throat Start:30-Aug-2019 Instruction Type:Patient Education Patient Instructions Indication:Sore throat Start:30-Aug-2019 Instruction Type:Provider Instructions for Treatment How to access health informa tion online Indication:Nonsmoker Start:31-Oct-2018 Instruction Type:Patient Education How to access health informa tion online - Detail Indication:Nonsmoker Start:31-Oct-2018 Instruction Type:Patient Education Patient Instructions Indication:Nonsmoker Start:31-Oct-2018 Instruction Type:Provider Instructions for Treatment How to access health informa tion online Indication:BMI 22.0-22.9, adult Start:19-Jun-2018 Instruction Type:Patient Education How to access health informa tion online - Detail Indication:BMI 22.0-22.9, adult Start:19-Jun-2018 Instruction Type:Patient Education Patient Instructions Indication:BMI 22.0-22.9, adult Start:19-Jun-2018 Instruction Type:Provider Instructions for Treatment How to access health informa tion online Indication:Sore throat Start:09-May-2017 Instruction Type:Patient Education How to access health informa tion online - Detail Indication:Sore throat Start:09-May-2017 Instruction Type:Patient Education Patient Instructions Indication:Sore throat Start:09-May-2017 Instruction Type:Provider Instructions for Treatment Patient Instructions Indication:Tonsillitis with exudate Start:02-May-2017 Instruction Type:Provider Instructions for Treatment How to access health informa tion online Indication:Body mass index (BMI) 20.0-20.9, adult Start:02-May-2017 Instruction Type:Patient Education How to access health informa tion online - Detail Indication:Shoulder pain, right Start:13-Dec-2016 Instruction Type:Patient Education Patient Instructions Indication:Shoulder pain, right Start:13-Dec-2016 Instruction Type:Provider Instructions for Treatment How to access health informa tion online Indication:Dysuria Start:06-May-2016 Instruction Type:Patient Education How to access health informa tion online - Detail Indication:Dysuria Start:06-May-2016 Instruction Type:Patient Education Patient Instructions Indication:Dysuria Start:06-May-2016 Instruction Type:Provider Instructions for Treatment Name Dates Details How to access health informa tion online Indication:Sore throat Start:30-Aug-2019 Instruction Type:Patient Education How to access health informa tion online - Detail Indication:Sore throat Start:30-Aug-2019 Instruction Type:Patient Education Patient Instructions Indication:Sore throat Start:30-Aug-2019 Instruction Type:Provider Instructions for Treatment How to access health informa tion online Indication:Nonsmoker Start:31-Oct-2018 Instruction Type:Patient Education How to access health informa tion online - Detail Indication:Nonsmoker Start:31-Oct-2018 Instruction Type:Patient Education Patient Instructions Indication:Nonsmoker Start:31-Oct-2018 Instruction Type:Provider Instructions for Treatment How to access health informa tion online Indication:BMI 22.0-22.9, adult Start:19-Jun-2018 Instruction Type:Patient Education How to access health informa tion online - Detail Indication:BMI 22.0-22.9, adult Start:19-Jun-2018 Instruction Type:Patient Education Patient Instructions Indication:BMI 22.0-22.9, adult Start:19-Jun-2018 Instruction Type:Provider Instructions for Treatment How to access health informa tion online Indication:Sore throat Start:09-May-2017 Instruction Type:Patient Education How to access health informa tion online - Detail Indication:Sore throat Start:09-May-2017 Instruction Type:Patient Education Patient Instructions Indication:Sore throat Start:09-May-2017 Instruction Type:Provider Instructions for Treatment Patient Instructions Indication:Tonsillitis with exudate Start:02-May-2017 Instruction Type:Provider Instructions for Treatment How to access health informa tion online Indication:Body mass index (BMI) 20.0-20.9, adult Start:02-May-2017 Instruction Type:Patient Education How to access health informa tion online - Detail Indication:Shoulder pain, right Start:13-Dec-2016 Instruction Type:Patient Education Patient Instructions Indication:Shoulder pain, right Start:13-Dec-2016 Instruction Type:Provider Instructions for Treatment How to access health informa tion online Indication:Dysuria Start:06-May-2016 Instruction Type:Patient Education How to access health informa tion online - Detail Indication:Dysuria Start:06-May-2016 Instruction Type:Patient Education Patient Instructions Indication:Dysuria Start:06-May-2016 Instruction Type:Provider Instructions for Treatment Name Dates Details How to access health informa tion online Indication:Nonsmoker Start:08-Oct-2020 Instruction Type:Patient Education How to access health informa tion online - Detail Indication:Nonsmoker Start:08-Oct-2020 Instruction Type:Patient Education Patient Instructions Indication:Nonsmoker Start:08-Oct-2020 Instruction Type:Provider Instructions for Treatment How to access health informa tion online Indication:Nonsmoker Start:06-Oct-2020 Instruction Type:Patient Education How to access health informa tion online - Detail Indication:Nonsmoker Start:06-Oct-2020 Instruction Type:Patient Education Patient Instructions Indication:Nonsmoker Start:06-Oct-2020 Instruction Type:Provider Instructions for Treatment How to access health informa tion online Indication:Sore throat Start:30-Aug-2019 Instruction Type:Patient Education How to access health informa tion online - Detail Indication:Sore throat Start:30-Aug-2019 Instruction Type:Patient Education Patient Instructions Indication:Sore throat Start:30-Aug-2019 Instruction Type:Provider Instructions for Treatment How to access health informa tion online Indication:Nonsmoker Start:31-Oct-2018 Instruction Type:Patient Education How to access health informa tion online - Detail Indication:Nonsmoker Start:31-Oct-2018 Instruction Type:Patient Education Patient Instructions Indication:Nonsmoker Start:31-Oct-2018 Instruction Type:Provider Instructions for Treatment How to access health informa tion online Indication:BMI 22.0-22.9, adult Start:19-Jun-2018 Instruction Type:Patient Education How to access health informa tion online - Detail Indication:BMI 22.0-22.9, adult Start:19-Jun-2018 Instruction Type:Patient Education Patient Instructions Indication:BMI 22.0-22.9, adult Start:19-Jun-2018 Instruction Type:Provider Instructions for Treatment How to access health informa tion online Indication:Sore throat Start:09-May-2017 Instruction Type:Patient Education How to access health informa tion online - Detail Indication:Sore throat Start:09-May-2017 Instruction Type:Patient Education Patient Instructions Indication:Sore throat Start:09-May-2017 Instruction Type:Provider Instructions for Treatment Patient Instructions Indication:Tonsillitis with exudate Start:02-May-2017 Instruction Type:Provider Instructions for Treatment How to access health informa tion online Indication:Body mass index (BMI) 20.0-20.9, adult Start:02-May-2017 Instruction Type:Patient Education How to access health informa tion online - Detail Indication:Shoulder pain, right Start:13-Dec-2016 Instruction Type:Patient Education Patient Instructions Indication:Shoulder pain, right Start:13-Dec-2016 Instruction Type:Provider Instructions for Treatment How to access health informa tion online Indication:Dysuria Start:06-May-2016 Instruction Type:Patient Education How to access health informa tion online - Detail Indication:Dysuria Start:06-May-2016 Instruction Type:Patient Education Patient Instructions Indication:Dysuria Start:06-May-2016 Instruction Type:Provider Instructions for Treatment Name Dates Details How to access health informa tion online Indication:Nonsmoker Start:08-Oct-2020 Instruction Type:Patient Education How to access health informa tion online - Detail Indication:Nonsmoker Start:08-Oct-2020 Instruction Type:Patient Education Patient Instructions Indication:Nonsmoker Start:08-Oct-2020 Instruction Type:Provider Instructions for Treatment How to access health informa tion online Indication:Nonsmoker Start:06-Oct-2020 Instruction Type:Patient Education How to access health informa tion online - Detail Indication:Nonsmoker Start:06-Oct-2020 Instruction Type:Patient Education Patient Instructions Indication:Nonsmoker Start:06-Oct-2020 Instruction Type:Provider Instructions for Treatment How to access health informa tion online Indication:Sore throat Start:30-Aug-2019 Instruction Type:Patient Education How to access health informa tion online - Detail Indication:Sore throat Start:30-Aug-2019 Instruction Type:Patient Education Patient Instructions Indication:Sore throat Start:30-Aug-2019 Instruction Type:Provider Instructions for Treatment How to access health informa tion online Indication:Nonsmoker Start:31-Oct-2018 Instruction Type:Patient Education How to access health informa tion online - Detail Indication:Nonsmoker Start:31-Oct-2018 Instruction Type:Patient Education Patient Instructions Indication:Nonsmoker Start:31-Oct-2018 Instruction Type:Provider Instructions for Treatment How to access health informa tion online Indication:BMI 22.0-22.9, adult Start:19-Jun-2018 Instruction Type:Patient Education How to access health informa tion online - Detail Indication:BMI 22.0-22.9, adult Start:19-Jun-2018 Instruction Type:Patient Education Patient Instructions Indication:BMI 22.0-22.9, adult Start:19-Jun-2018 Instruction Type:Provider Instructions for Treatment How to access health informa tion online Indication:Sore throat Start:09-May-2017 Instruction Type:Patient Education How to access health informa tion online - Detail Indication:Sore throat Start:09-May-2017 Instruction Type:Patient Education Patient Instructions Indication:Sore throat Start:09-May-2017 Instruction Type:Provider Instructions for Treatment Patient Instructions Indication:Tonsillitis with exudate Start:02-May-2017 Instruction Type:Provider Instructions for Treatment How to access health informa tion online Indication:Body mass index (BMI) 20.0-20.9, adult Start:02-May-2017 Instruction Type:Patient Education How to access health informa tion online - Detail Indication:Shoulder pain, right Start:13-Dec-2016 Instruction Type:Patient Education Patient Instructions Indication:Shoulder pain, right Start:13-Dec-2016 Instruction Type:Provider Instructions for Treatment How to access health informa tion online Indication:Dysuria Start:06-May-2016 Instruction Type:Patient Education How to access health informa tion online - Detail Indication:Dysuria Start:06-May-2016 Instruction Type:Patient Education Patient Instructions Indication:Dysuria Start:06-May-2016 Instruction Type:Provider Instructions for Treatment Advance Directives No Advanced Directives Records Found Name Dates Details Immunization Registry [place] - Effective on 10/06/2020. Expiration date unspecified Effective:06-Oct-2020 Name Dates Details Immunization Registry [place] - Effective on 10/06/2020. Expiration date unspecified Effective:06-Oct-2020 Name Dates Details Immunization Registry [place] - Effective on 10/06/2020. Expiration date unspecified Effective:06-Oct-2020 Name Dates Details Immunization Registry [place] - Effective on 10/06/2020. Expiration date unspecified Effective:06-Oct-2020 Name Dates Details Immunization Registry [place] - Effective on 10/06/2020. Expiration date unspecified Effective:06-Oct-2020 Advance Directive Response Recorded Date/ Time Advance Directives No September 2:17pm Living Will No November 25 1 2:51pm Power of Finish Mixer No November 25 021 2:51pm Name Dates Details Immunization Registry [place] - Effective on 10/06/2020. Expiration date unspecified Effective:06-Oct-2020 Advance Directive Response Recorded Date/ Time Advance Directives No September 1:17pm Living Will No November 25 1 1:51pm Power of Finish Mixer No November 25 2 021 1:51pm Advance Directive Response Recorded Date/ Time Living Will No May 11, 2024 3:08pm Do you have a Healthcare Power of Finish Mixer? 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) ANNUAL PAP Reason for Visit Encounter for routin e gynecological examination Chief Complaint 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) ANNUAL PAP SCREENING Reason for Visit Encounter for routin e gynecological examination Chief Complaint Admit Date CONCERN FOR SINUS INFECTION February 04, 2025 9:50am 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) March 01, 2025 2:1 4pm screen for breast cancer March 11 1:01pm Reason for Visit Admit Date Encounter for routine gynecological exam ination March 01, 2025 2:14pm Summary Purpose Family History No Family History Records Found Additional Source Comments Goals (unrecognized section and content) Goals may be documented in a n alternate sectionGoals may be documented in an alternate sectionGoals may be documented in an alternate sectionGoals may be documented in an alternate sectionGoals may be documented in an alternate sectionGoals may be documented in an alternate sectionGoals may be documented in an alternate sectionGoals may be documented in an alternate section Care Teams (unrecognized sec tion and content) Team Status: Active Member Role Status Dates Dr. Sole Banegas DO Family Provider Active Dr. Sole Banegas DO Primary Care Provider Active Team Status: Inactive Member Role Status Dates Dr. Sole Banegas DO Primary Care Provider, Referr ing Provider Active Tonya Goldstein CNM Attending Provider Active Team Status: Inactive Member Role Status Dates Dr. Sole Banegas DO Primary Care Provider Active Tonya Goldstein CNM Attending Provider, Referring Pr ovider Active Team Status: Inactive Member Role Status Dates Dr. Sole Banegas DO Primary Care Provider Active Sue Baldwin MD Attending Provider, Referring Provide r Active Team Status: Active Member Role Status Dates Sue Baldwin MD Primary Care Provider Active Team Status: Inactive Member Role Status Dates Sue Baldwin MD Primary Care Provider Active St art: February 04, 2025 End: February 04, 2025 Sue Baldwin MD Referring Provider Active Start : February 04, 2025 End: February 04, 2025 David Barraza PA, PA Attending Provider Active Start: February 04, 2025 End: February 04, 2025 Team Status: Inactive Member Role Status Simone Baldwin MD Primary Care Provider Active St art: March 01, 2025 End: March 01, 2025 Sue Baldwin MD Referring Provider Active Start : March 01, 2025 End: March 01, 2025 Tonya Goldstein CNM Attending Provider Active Start: March 01, 2025 End: March 01, 2025 Team Status: Inactive Member Role Status Simone Baldwin MD Primary Care Provider Active St art: March 11, 2025 End: March 11, 2025 Tonya Goldstein CNM Attending Provider Active Start: March 11, 2025 End: March 11, 2025 Tonya Goldstein CNM Referring Provider Active Start: March 11, 2025 End: March 11, 2025 INFORMATION SOURCE (unrecogn ized section and content) DATE CREATED AUTHOR 09/28/2025 [facility] FOR RECORDS PERTAINING TO PATIENTS WHO ARE OR HAVE BEEN ENROLLED IN A CHEMICAL DEPENDENCY/SUBSTANCEABUSE PROGRAM, SOME INFORMATION MAY BE OMITTED. This clinical summary was aggregated from multiple sources. Caution should be exercised in using it in the provision of clinical care. This summary normalizes information from multiple sources, and as a consequence, information in this document may materially change the coding, format and clinical context of patient data. In addition, data may be omitted in some cases. CLINICAL DECISIONS SHOULD BE BASED ON THE PRIMARY CLINICAL RECORDS. [email or web address] provides no warranty or guarantee of the accuracy or completeness of information in this document.
== END | disposition home or self-care (01) ==
LOC: MTLAB 15:09
PROVIDERS: PCP Family Medicine; Referring Provider Obstetrics & Gynecology Reproductive Endocrinology; Visit Provider Obstetrics & Gynecology Reproductive Endocrinology
DX: E28.9 Ovarian dysfunction, unspecified (principal)
CPT/HCPCS: 36415; 82670; 83001; 83516